=== PATIENT | male | born 1930 | race Caucasian/White ===

== ENCOUNTER 2016-12-27 18:49 | Emergency (ER) | payer MEDICARE, OTHER ==
[~2016-12-27] VITALS: Ht 167.6 cm; Wt 68.0 kg
[2016-12-27 18:49] VITALS: BP 151/56; PULSE 75; RESP 22; O2SAT 98
[~2016-12-27 18:49] MED LIST: ALPR0.254 PO; ASPI-973 PO; CLOB15CR3 TOP; CLOP75TA28 PO; FURO-129 PO; IBUP200C PO; LIP40 PO; LISI2.5T PO; METO25TA6 PO; NITR0.4T6 SL; OMEP20TA24 PO; POTA10TA14 PO; TAMS0.4C29 PO; TRAM50TA2 PO
--- NOTE | 2016-12-27 18:58 | ED.REPORT ---
HPI-General Illness Date of Service Dec 27, 2016 ED Provider: Onesimo Betancur DO An 86 year old male with a history of pacemaker, CAD, CABG, sleep apnea, hypertension, spinal stenosis, recent hip replacement, aortic valve replacement , and multiple other medical concerns is brought to the ED via EMS due to difficulty staying awake. The pt resides in [facility] and was noted by staff to be falling asleep during dinner today. The pt had a hip replacement one month ago and has been moved frequently as a result. In the ED, the pt states that he does not like being moved so frequently and that his only complaint is depression. He sleeps "because there is nothing else to do." Pt is a poor historian and history is limited as a result. Nursing Notes Stated Complaint: TROUBLE STAYING AWAKE Chief Complaint: General Complaint Nursing Notes Reviewed: Yes Allergies: Coded Allergies: hydrocodone (Verified Allergy, Mild, 12/27/16) NAUSEA codeine (Verified Allergy, Unknown, 12/27/16) Scheduled Alprazolam (Alprazolam) 0.25 Mg Tablet 0.25 MG PO BID Aspirin (Aspirin) 81 Mg Tablet 81 MG PO DAILY Atorvastatin (Lipitor) 40 Mg Tablet 40 MG PO HS Cholecalciferol (Vitamin D3) (Vitamin D3) 2,000 Unit Capsule 2,000 UNIT PO DAILY Duloxetine (Cymbalta) 30 Mg Capsule.dr 30 MG PO DAILY Furosemide (Lasix) 20 Mg Tablet 20 MG PO EVERY OTHER DAY Melatonin (Melatonin) 3 Mg Tablet 3 MG PO HS Multivitamin (Multivitamins) 1 Each Capsule 1 EACH PO DAILY Polyethylene Glycol 3350 (Polyethylene Glycol 3350) 17 Gm Powd.pack 17 GM PO DAILY Potassium Chloride ER (Klor-Con M10) 10 Meq Tablet 10 MEQ PO DAILYWM Scheduled PRN Acetaminophen (Acetaminophen) 325 Mg Tablet 650 MG PO BID PRN PRN For Fever Alprazolam (Alprazolam) 0.25 Mg Tablet 0.25 MG PO DAILY PRN PRN For Anxiety Bisacodyl (Dulcolax Rectal) 10 Mg Supp.rect 10 MG RC EVERY 3 DAYS PRN PRN CONSTIP Ibuprofen (Ibuprofen) 200 Mg Capsule 400 MG PO DAILYWM PRN PRN For Pain Magnesium Hydroxide (Milk of Magnesia) 400 Mg/5 Ml Oral.susp 30 ML PO X3 DAYS PRN PRN CONSTIP Nitroglycerin SL (Nitroglycerin SL) 0.4 Mg Tab.subl 0.4 MG SL PRN PRN PRN For Chest Pain Ondansetron (Ondansetron) 4 Mg Tablet 4 MG PO Q6HR PRN PRN For Nausea Sennosides (Senna) 8.6 Mg Tablet 8.6 MG PO TID PRN PRN For Constipation Tramadol (Tramadol) 50 Mg Tablet 50-100 MG PO HS PRN PRN For Pain oxyCODONE-Acetaminophen 5-325 mg (oxyCODONE-Acetaminophen 5-325 mg) 1 Each Tablet 1 TAB PO 1-2X DAY PRN PRN For Pain General Time Seen by MD: 18:57 Chief Complaint Other (Abnormal sleeping habits) Hx Obtained From: Patient, EMS Arrived By: Ambulance Sudden in Onset?: No Onset Occurred: 1 - 4 hours ago Recent Healthcare: No recent hospitalization, Recent doctor visit Similar Sx Previous: No Past Medical History Past Medical History Notes: PCP: Dr. Richardson Orthopedist: Dr. Wong at [facility]. Past Medical History Coronary artery disease Chronic left bundle-branch block Valvular heart disease - Severe aortic stenosis, severe mitral regurg (echo for 07/24/2015: EF 40-45%, worsening pulmonary hypertension, echogenic structure on posterior leaflet of mitral valve and severe mitral regurg, critically severe aortic stenosis which has been worsening) Obstructive sleep apnea Hypertension Hyperlipidemia Spinal stenosis with chronic back pain, neuropathy of right foot One kidney stone Oseoarthritis, severe in lower back, knee, and hip Peripheral vascular disease Holter study in 2006 suggestive brief SVT Past Surgical History Status post left percutaneous transfemoral TAPVR with an [employer] XT pericardial tissue heart valve placed at the [facility] 03/26/2015 Cardiac cath in 2005 with subsequent CABG x4 in 2005 - Cradiologist: Dr. Ivey (subcutaneous workups of expressed concern the patient has suffered a occlusion of the diagonal portion of his radial artery graft) Right common femoral artery open endarterectomy with patch angioplasty in 2008 Bladder CA with surgery including lymphadenectomy on the right side by Dr. Pulido L4-L5 back surgery 2009 Aortic valve replacement 2014 Reports: Pacemaker insertion Smoking History Former Smoker Social History Alcohol Use: "Social" Drug Use: Denies drug use Other Social History: , Local resident Ambulatory Status Cane Review of Systems frequently falling asleep per EMS Full Review of Systems Constitutional: Denies: Fever Respiratory: Denies: Non-productive cough, Shortness of breath Cardiovascular: Denies: Chest pain GI: Denies: Abdominal pain Musculoskeletal: Denies: Back pain, Neck pain Skin: Denies Rash Psychiatric: Reports: Depression Complete sys rev & neg: except as marked. Physical Exam Vital Signs Vital Signs Date Time Temp Pulse Resp B/P Pulse Ox O2 Delivery O2 Flow Rate FiO2 12/28/16 00:51 75 20 125/87 75 Room Air 12/27/16 22:20 80 24 148/72 98 Room Air 12/27/16 18:49 36.8 75 22 151/56 98 Room Air Initial VS: Reviewed General/Constitutional: Awake, Alert Head / Eyes: Atraumatic, Normocephalic, PERRL, EOMI ENT: Atraumatic, Airway patent, Mucous membranes moist, Tympanic membs NL no rhinorrhea Neck: Atraumatic, Supple, Full range of motion thyroid not enlarged Respiratory / Chest: Atraumatic, Breath sounds NL, Breath sounds = bilat, No respiratory distress two well-healed surgical scars from pacemaker placement Cardiovascular: Heart rate NL, Regular rhythm holosystolic injection murmur click at left sternal border Abdomen: Atraumatic, Soft, Non-tender, BS normoactive no organomegaly Back: Atraumatic, Full range of motion Upper Extremities Upper Extremity / MS: Atraumatic, Full range of motion Lower Extremity / Pelvis / MS: Atraumatic, Full range of motion 2+ pitting edema in bilateral lower extremities good distal pulses and cap refill Skin: Atraumatic, Color NL, No rash, Warm, Dry Neurologic: Oriented X3, Speech NL, No motor deficits, No sensory deficits Psychiatric: Affect NL, Mood NL Interpretation & Diagnostics Interpretation & Diagnostics: US DVT: CONCLUSION: No evidence of deep vein thrombosis of the lower extremities. Lab Results Interpretation Result Diagram: 12/27/16192412/27/161924 Test 12/27/16 19:25 12/27/16 21:13 12/27/16 23:12 White Blood Count 6.6th/mm3 (3.8-10.1) Red Blood Count 3.90mil/mm3 (4.40-5.80) Hemoglobin 11.1g/dL (13.8-17.2) Hematocrit 33.9% (41.0-50.0) Mean Corpuscular Volume 86.9fL (81-100) Mean Corpuscular Hemoglobin 28.5pg (27.0-35.0) Mean Corpuscular Hemoglobin Concent 32.7% (32.0-37.0) Red Cell Distribution Width 15.4% (12.3-15.4) Platelet Count 146bil/L (150-400) Neutrophils (%) (Auto) 56.4% (40-74) Lymphocytes (%) (Auto) 30.1% (14-46) Monocytes (%) (Auto) 10.4% (4-12) Eosinophils (%) (Auto) 2.0% (0-5) Basophils (%) (Auto) 0.8% (0-3) D-Dimer 0.9mg/L (<0.50) Sodium Level 138mEq/L (134-144) Potassium Level 3.9mEq/L (3.5-5.2) Chloride Level 101mEq/L (97-108) Carbon Dioxide Level 23mmol/L (18-29) Blood Urea Nitrogen 19mg/dL (8-27) Creatinine 1.00mg/dL (0.76-1.27) Estimat Glomerular Filtration Rate 75mL/min (>59) Glucose Level 124mg/dL (60-99) Calcium Level 9.3mg/dL (8.5-10.1) Magnesium Level 1.8mg/dL (1.6-2.6) Total Bilirubin 0.7mg/dL (0.0-1.2) Aspartate Amino Transf (AST/SGOT) 29U/L (0-50) Alanine Aminotransferase (ALT/SGPT) 22U/L (0-44) Alkaline Phosphatase 102U/L (25-160) Pro-B-Type Natriuretic Peptide 90470eu/mL (0-486) Total Protein 6.4g/dL (6.4-8.4) Albumin 3.6g/dL (3.4-5.0) Thyroid Stimulating Hormone (TSH) 0.528uIU/mL (0.450-4.500) Hold Baird Top Tube Received (Received) Urine Color Yellow (YELLOW) Urine Appearance Clear (CLEAR,HAZY) Urine pH 5.0 (5.0-8.0) Urine Specific [place] 1.011 (1.003-1.035) Urine Protein Negativemg/dL (NEG,TRACE) Urine Glucose (UA) Negativemg/dL (NEGATIVE) Urine Ketones Negativemg/dL (NEGATIVE) Urine Occult Blood Moderate (NEGATIVE) Urine Nitrite Negative (NEGATIVE) Urine Bilirubin Negative (NEGATIVE) Urine Urobilinogen Normalmg/dL (NORMAL) Urine Leukocyte Esterase Negative (NEGATIVE) Urine RBC 11-50/hpf (0-2) Urine WBC 0-5/hpf (0-5) Urine Epithelial Cells Occasional/hpf (NONE-MOD) Urine Crystals None seen (NONE SEEN) Urine Bacteria Few/hpf (NONE-FEW) Urine Hyaline Casts None/lpf (NONE) Urine Granular Casts None seen (NONE SEEN) Urine Waxy Casts None seen (NONE SEEN) Urine Red Blood Cell Casts None seen (NONE SEEN) Urine White Blood Cell Casts None seen (NONE SEEN) Urine Mucus Present (None Seen) Urine Trichomonas None seen (NONE SEEN) Urine Yeast None (NONE SEEN) Urinalysis Comment None Urine Culture Reflexed Not indicated Troponin T 0.011ug/L (0.0-0.011) Pulse Oximetry Interpretation Pulse Oximetry Interpretation: 98% on room air Pulse Oximetry: Pulse Ox normal ECG Interpretation ECG Interpretation: normal sinus rhythm with a rate of 72 LBBB anterior infarct, old probable left atrial enlargment Time: 19:33 Interpreted by: ED physician X-Ray Chest Interpretation Chest Xray Interpretation: IMPRESSION: 1. No definite acute cardiopulmonary disease. Dictated by: Johny Ferguson M.D. on 12/27/2016 at 21:28 Approved by: Johny Ferguson M.D. on 12/27/2016 at 21:29 Interpretation / Wet Read by: Interpret - Radiologist CT Head Interpretation IMPRESSION: 1. No acute intracranial abnormality. 2. Mild chronic white matter small vessel ischemic changes and cerebral volume loss. Dictated by: Johny Ferguson M.D. on 12/27/2016 at 20:06 Approved by: Johny Ferguson M.D. on 12/27/2016 at 20:09 Interpretation / Wet Read by: Interpret - Radiologist Re-Eval/Medical Decision Med Decision/Clinical Course 78-year-old male presents with no complaint. The staff at [facility] is concerned because he seems to be falling asleep a bit. He tells me sleeping because he is bored. He is also not happy about having his room switched several times. He denies headache, neck pain, chest pain or shortness of breath he does not have abdominal pain still living a can think of this different is he has a little leg swelling but otherwise he is doing well medically. Again he has no specific complaints. After thorough physical exam, review of systems an extensive workup I found that he most likely has urinary tract infection. He has some red cells and white cells and bacteria. As such we will culture his urine and placement short course of antibiotics. Serial troponins were never positive. His EKG did not look ischemic and overall he is not having any chest pain he did not wish to be in the hospital. I found no reason whatsoever to admit him. His family members came. I explained all this to them. They are pleased with his care and will take him back to [facility] I will place him on a course of antibiotics. Will also arrange for outpatient follow-up. Addendum: On December 28 at 6:15 PM I spoke with the staff at [facility]. Rojelio is doing much better. He is not very sleepy and he is back to his baseline. The will send him back if any problems. Source of Hx: Old records Time of Eval: 23:17 Patient Status: Condition improved Re-Evaluation/Progress Note: Pt rechecked, who is resting and accompanied by family. Diagnosis and the plan for discharge are discussed. The pt understands and agrees with the plan. All questions are addressed at this time. Counseled Regarding: Diagnosis, Lab results, Need for follow-up, When/why to return to ED Discharge & Departure Primary Impression: UTI (urinary tract infection) Urinary tract infection type: site unspecified Hematuria presence: with hematuria Qualified Code: N39.0 - Urinary tract infection, site not specified Disposition: Home Discharge Condition All VS Reviewed: Yes Condition: Stable Patient Instructions: Urinary Tract Infection in Men (ED) Additional Instructions: Your CT scan was reassuring and did not show any new findings. Your chest x-ray , blood chemistry, and heart enzymes were also normal. Your thyroid function is normal and you do not have a blood clot in your legs. You did have blood in your urine which could indicate a urine infection. Take Bactrim twice daily for five days and follow up with your primary care physician next week to review the results of your culture. Return to the emergency department if you develop any new or worsening symptoms. Referrals: Cassie Richardson MD (PCP) Oliviaibshauna Attestation Portions of this note were transcribed by Nayely Quezada. I, Dr. Betancur personally performed the history, physical exam and medical decision-making; I reviewed and confirmed the accuracy of the information in the transcribed note. Signed by: Mg Rudd, 12/27/2016 and 2307. copies to: Cassie Richardson MD, Todd P DO Dec 27, 2016 18:58 NAYELY QUEZADA Dec 27, 2016 19:09
[2016-12-27] MEDS ORDERED: OXYC1TAB24 PO (19:15)
[2016-12-27] MEDS ORDERED: SENN-133 PO (19:15)
[2016-12-27] MEDS ORDERED: MULT1CAP33 PO (19:15)
[2016-12-27] MEDS ORDERED: BISA10SU61 RC (19:15)
[2016-12-27] MEDS ORDERED: FURO-129 PO (19:15)
[2016-12-27] MEDS ORDERED: POLY17PO2 PO (19:15)
[2016-12-27] MEDS ORDERED: ACET325T51 PO (19:15)
[2016-12-27] MEDS ORDERED: ALPR0.254 PO (19:15)
[2016-12-27] MEDS ORDERED: CHOL200047 PO (19:15)
[2016-12-27] MEDS ORDERED: ONDA-53 PO (19:15)
[2016-12-27] MEDS ORDERED: DULO30CA PO (19:15)
[2016-12-27] MEDS ORDERED: MELA3TAB35 PO (19:15)
[2016-12-27] MEDS ORDERED: MAGN400O4 PO (19:15)
[2016-12-27 19:37] LABS: BASOPHILS % (AUTO) 0.8 % (0-3); MONOCYTES % (AUTO) 10.4 % (4-12); Mean Corpuscular Hemoglobin 28.5 pg (27.0-35.0); Mean Corpuscular Volume 86.9 fL (81-100); NEUTROPHILS % (AUTO) 56.4 % (40-74); Platelet Count 146 bil/L (150-400)
--- NOTE | 2016-12-27 20:11 | DRSVH ---
PROCEDURE: CT BRAIN WITHOUT CONTRAST ([id number]) INDICATIONS: altered mental status TECHNIQUE: Noncontrast 4.5 mm thick angled axial sections acquired from the foramen magnum to the vertex, with c oronal reformats. COMPARISON: [facility], CT, CT BRAIN WO CON, 06/30/2015, 10:33. FINDINGS: Image quality: Excellent. CSF spaces: Basal cisterns are patent. No extra-axial fluid collections. The ventricles are symmet andrade in size and shape. There is mild cere or mild andbral volume loss, with resultant ventricular an d sulcal prominence. Brain: No intracranial hemorrhage, mass, or mass effect. There are subcortical, periventricular and deep white matter hypodensities consistent with chronic small vessel ischemic changes. There is int racranial internal carotid artery atherosclerosis. Skull and face: Calvarium and visualized facial bones appear intact, without suspicious lesions. Sinuses: Visualized sinuses are clear. There is partial fluid opacification of the left mastoid air cells. IMPRESSION: 1. No acute intracranial abnormality. 2. Mild chronic white matter small vessel ischemic changes and cerebral volume loss. Dictated by: Johny Ferguson M.D. on 12/27/2016 at 20:06 Approved by: Johny Ferguson M.D. on 12/27/2016 at 20:09
[2016-12-27 20:14] LABS: TROPONIN T < 0.010 ug/L (0.0-0.011)
[2016-12-27 20:23] LABS: Magnesium 1.8 mg/dL (1.6-2.6)
--- NOTE | 2016-12-27 21:31 | DRSVH ---
PROCEDURE: X-RAY CHEST ONE VIEW, PORTABLE ([id number]) INDICATIONS: weakness TECHNIQUE: One view of the chest was acquired. COMPARISON: [facility], CR, XR CHEST 1VW (PORTABLE), 06[facility]30[facility]2015, 10:37[facility]/2015, 12:29. FINDINGS: Surgical changes and devices: Left chest wall dual-lead pacemaker appears stable in position. Postsu rgical changes are again noted in the mediastinum. Lungs and pleura: No pleural effusions or pneumothorax. No acute consolidation. There are calcifie d pleural plaques are demonstrated in the lung apices. There is a dense nodule in the right lung bas e which appears unchanged. Mediastinum: Mediastinal contours appear unchanged. Heart size is normal. Bones and chest wall: No suspicious bony lesions. Overlying soft tissues appear unremarkable. IMPRESSION: 1. No definite acute cardiopulmonary disease. Dictated by: Johny Ferguson M.D. on 12/27/2016 at 21:28 Approved by: Johny Ferguson M.D. on 12/27/2016 at 21:29
[2016-12-27 21:34] LABS: APPEARANCE,URINE CLEAR (CLEAR,HAZY); COLOR,URINE YELLOW (YELLOW); OCCULT BLOOD,URINE MODERATE (NEGATIVE); UROBILINOGEN,URINE NORMAL (NORMAL)
[2016-12-27 22:20] VITALS: BP 148/72; PULSE 80; RESP 24; O2SAT 98
[2016-12-27] MEDS ORDERED: Trimethoprim-Sulfa 160 mg-800 mg Tablet PO ONE (23:05)
[2016-12-28 00:51] VITALS: BP 125/87; PULSE 75; RESP 20; O2SAT 75
--- NOTE | 2016-12-28 08:22 | DRSVH ---
PROCEDURE: US VENOUS LEG DUPLEX BILATERAL INDICATIONS: new leg swelling,recent post op,High ddimer TECHNIQUE: Real-time imaging, as well as color and pulse Doppler interrogation, were performed of the deep veins of both legs from the inguinal ligament to the popliteal fossa. COMPARISON: None. FINDINGS: The deep veins are normally compressible, and free of intraluminal thrombus. Color and pu lse Doppler demonstrate normal phasic intravascular flow. There is normal augmentation response to d istal compression maneuver. IMPRESSION: No evidence of right lower extremity DVT. Dictated by: Dania Woods M.D. on 12/28/2016 at 8:20 Approved by: Dania Woods M.D. on 12/28/2016 at 8:21
== END 2016-12-28 00:55 | disposition home or self-care (01) ==
LOC: SED 18:49
DX: N39.0 Urinary tract infection, site not specified (principal); I25.10 Atherosclerotic heart disease of native coronary artery without angina pectoris; G47.33 Obstructive sleep apnea (adult) (pediatric); I10 Essential (primary) hypertension; E78.5 Hyperlipidemia, unspecified; Z95.0 Presence of cardiac pacemaker; Z95.1 Presence of aortocoronary bypass graft; Z87.39 Personal history of other diseases of the musculoskeletal system and connective tissue; Z96.649 Presence of unspecified artificial hip joint; Z95.2 Presence of prosthetic heart valve; Z87.891 Personal history of nicotine dependence; Z79.82 Long term (current) use of aspirin; Z88.5 Allergy status to narcotic agent

== ENCOUNTER 2017-01-05 13:50 | Inpatient (IN) | payer MEDICARE, OTHER ==
[2017-01-05] VITALS (19 sets, daily range): BP systolic 111–149; BP diastolic 66–105; PULSE 87–98; RESP 16–23; O2SAT 95–99
[~2017-01-05] VITALS: Ht 167.6 cm; Wt 64.7 kg
[~2017-01-05 13:50] MED LIST changes: +ACET325T51 PO; +BISA10SU61 RC; +CHOL200047 PO; -CLOB15CR3 TOP; -CLOP75TA28 PO; +DULO30CA PO; -LISI2.5T PO; +MAGN400O4 PO; +MELA3TAB35 PO; -METO25TA6 PO; +MULT1CAP33 PO; -OMEP20TA24 PO; +ONDA-53 PO; +OXYC1TAB24 PO; +POLY17PO2 PO; +SENN-133 PO; -TAMS0.4C29 PO
--- NOTE | 2017-01-05 14:08 | ED.REPORT ---
HPI-Syncope Date of Service Jan 05, 2017 ED Provider: Bouchra Riley MD The patient is an 86 year old male with history of coronary artery disease s/p CABG, valvular heart disease, atrial fibrillation, s/p pacemaker placement, s/p aortic valve replacement and mitral clip procedure, obstructive sleep apnea, hypertension, hyperlipidemia, spinal stenosis with chronic back pain, and peripheral vascular disease, who was brought to the emergency department by EMS after he had a syncopal episode. The patient states he was eating lunch at [facility] where he resides, he just slid off of the chair and fell to the ground. He remembers falling but feels like he did lose consciousness at some point. He denies any injuries from the fall. He denies headache, chest pain, palpitations or shortness of breath. He has had 4-5 falls over the last few days. He had a similar episode yesterday that was witnessed by a nurse. He did not fall but was "completely out of it." He was seen in the hospital 1 week ago for syncope as well. Nursing Notes Stated Complaint: SYNCOPE Nursing Notes Reviewed: Yes Allergies: Coded Allergies: hydrocodone (Verified Allergy, Mild, 12/27/16) NAUSEA codeine (Verified Allergy, Unknown, 12/27/16) Scheduled Alprazolam (Alprazolam) 0.25 Mg Tablet 0.25 MG PO BID Aspirin (Aspirin) 81 Mg Tablet 81 MG PO DAILY Atorvastatin (Lipitor) 40 Mg Tablet 40 MG PO HS Cholecalciferol (Vitamin D3) (Vitamin D3) 2,000 Unit Capsule 2,000 UNIT PO DAILY Duloxetine (Cymbalta) 30 Mg Capsule.dr 30 MG PO DAILY Furosemide (Lasix) 20 Mg Tablet 20 MG PO EVERY OTHER DAY Melatonin (Melatonin) 3 Mg Tablet 3 MG PO HS Multivitamin (Multivitamins) 1 Each Capsule 1 EACH PO DAILY Polyethylene Glycol 3350 (Polyethylene Glycol 3350) 17 Gm Powd.pack 17 GM PO DAILY Potassium Chloride ER (Klor-Con M10) 10 Meq Tablet 10 MEQ PO DAILYWM Scheduled PRN Acetaminophen (Acetaminophen) 325 Mg Tablet 650 MG PO BID PRN PRN For Fever Alprazolam (Alprazolam) 0.25 Mg Tablet 0.25 MG PO DAILY PRN PRN For Anxiety Bisacodyl (Dulcolax Rectal) 10 Mg Supp.rect 10 MG RC EVERY 3 DAYS PRN PRN CONSTIP Ibuprofen (Ibuprofen) 200 Mg Capsule 400 MG PO DAILYWM PRN PRN For Pain Magnesium Hydroxide (Milk of Magnesia) 400 Mg/5 Ml Oral.susp 30 ML PO X3 DAYS PRN PRN CONSTIP Nitroglycerin SL (Nitroglycerin SL) 0.4 Mg Tab.subl 0.4 MG SL PRN PRN PRN For Chest Pain Ondansetron (Ondansetron) 4 Mg Tablet 4 MG PO Q6HR PRN PRN For Nausea Sennosides (Senna) 8.6 Mg Tablet 8.6 MG PO TID PRN PRN For Constipation Tramadol (Tramadol) 50 Mg Tablet 50-100 MG PO HS PRN PRN For Pain oxyCODONE-Acetaminophen 5-325 mg (oxyCODONE-Acetaminophen 5-325 mg) 1 Each Tablet 1 TAB PO 1-2X DAY PRN PRN For Pain General Time Seen by Provider: 14:08 Chief Complaint Lost consciousness Syncope Description: Single episode Hx Obtained From: Patient, Daughter, EMS Arrived By: Ambulance Onset Occurred: Just prior to arrival Symptom Duration: 1 - 15 minutes Progression Since Onset: Resolved Severity: Current: No pain currently Severity: Maximum: No pain Recent Healthcare: No recent doctor visit, No recent hospitalization Similar Sx Previous: No Past Medical History Past Medical History Notes: PCP: Dr. Richardson Orthopedist: Dr. Wong at [facility]. The patient would like his body donated to the when he passed. Past Medical History Coronary artery disease s/p status post three-vessel CABG in 2005. Congestive heart failure due to systolic/diastolic dysfunction. Atrial fibrillation Hypertension Aortic stenosis, severe status post TAVR March 2015 complicated by complete heart block requiring [employer] DDDR pacemaker Adenocarcinoma of the lung Severe mitral regurgitation, status post mitral clip procedure in March 2015. Peripheral artery disease with a history of a right common femoral endarterectomy with patch angioplasty Obstructive sleep apnea, using CPAP Hypertension, Hyperlipidemia Osteoarthritis Anxiety. Benign prostatic hypertrophy Questionable history of hepatitis B, chronic Bladder cyst and hematuria with apparent obstruction s/p indwelling catheter, followed by Dr. Pulido. Chronic low back pain with spinal stenosis, neuropathy of right foot and oseoarthritis Nicotine dependence in remission since 1980. Bladder cancer Past Surgical History Status post left percutaneous transfemoral TAPVR with an [employer] XT pericardial tissue heart valve placed at the [facility] 03/26/2015 Right common femoral artery open endarterectomy with patch angioplasty in 2008 Bladder CA with surgery including lymphadenectomy on the right side by Dr. Pulido L4-L5 back surgery 2008 Aortic valve replacement 2015 CABG x4 in 2005 Pacemaker Mitral clip procedure Right common femoral endarterectomy with patch angioplasty TURP History of cataract surgery Diverticulectomy Reports: Pacemaker insertion Family History Noncontributory Smoking History Former Smoker Social History Lives at [facility] in [place] Alcohol Use: "Social" Drug Use: Denies drug use Other Social History: Good social support, , Local resident Ambulatory Status Cane Review of Systems Respiratory: Denies: Shortness of breath Cardiovascular: Denies: Chest pain, Palpitations Neurologic: Reports: Syncope, Denies: Headache Complete sys rev & neg: except as marked. Physical Exam Initial Vital Signs Vital Signs (First) Date Time Temp Pulse Resp B/P Pulse Ox O2 Delivery O2 Flow Rate FiO2 01/05/17 14:08 36.8 95 16 125/80 99 Room Air Initial VS: Reviewed Head / Eyes: Atraumatic, Normocephalic, PERRL ENT: Mucous membranes moist, Conjunctiva normal, No scleral icterus Neck: Supple, Non-tender, Full range of motion Abdomen / GI: Soft, Non-tender, No guarding, No rebound, No distention Lymphatic: No lymphadenopathy Upper Extremities: Vascular intact, Neuro intact, No tenderness Skin: Warm, Dry, No cyanosis Psychiatric: Mood/affect normal, Behavior normal, Normal thought content General/Constitutional: Awake, Alert, Well appearing Respiratory / Chest: Atraumatic, Breath sounds NL, Breath sounds = bilat, No respiratory distress, No rales, No rhonchi, No wheezing Cardiovascular: Heart rate NL, Regular rhythm, No gallop, No rubs, Cap refill not delayed, Peripheral circulation NL Heart Sounds / Murmur: Positive: Diastolic murmur present. (III/), Systolic murmur present.. (IV/) Lower Ext Edema: Positive: Bilateral 2+ Lower Extremity / Pelvis / MS: Neurologic intact, Vascular intact Neurologic: Oriented X3, Speech NL, No motor deficits, No sensory deficits, Cerebellar NL, Memory NL Interpretation & Diagnostics Lab Results Interpretation Result Diagram: 01/05/17 1433 Test 01/05/17 14:33 White Blood Count 7.4th/mm3 (3.8-10.1) Red Blood Count 3.98mil/mm3 (4.40-5.80) Hemoglobin 11.3g/dL (13.8-17.2) Hematocrit 34.5% (41.0-50.0) Mean Corpuscular Volume 86.7fL (81-100) Mean Corpuscular Hemoglobin 28.4pg (27.0-35.0) Mean Corpuscular Hemoglobin Concent 32.8% (32.0-37.0) Red Cell Distribution Width 16.4% (12.3-15.4) Platelet Count 127bil/L (150-400) Neutrophils (%) (Auto) 53.1% (40-74) Lymphocytes (%) (Auto) 31.0% (14-46) Monocytes (%) (Auto) 10.5% (4-12) Eosinophils (%) (Auto) 3.9% (0-5) Basophils (%) (Auto) 1.2% (0-3) Re-Eval/Medical Decision Source of Hx: Old records, EMS, Family Counseled Regarding: Diagnosis, Lab results Discharge & Departure Shift Change Sign-Out Patient Care Transferred: Yes Discussed Complaint(s): Yes Laboratory Evaluation: Ordered, not yet done Imaging Studies: Ordered, not yet done Response to Therapy: Discussed Pleasant 86-year-old gentleman with recurrent syncope. His significant valvular disease. He describes decreasing awareness then slumping to the floor in episode one week ago 24 hours ago and again today. No seizure-like activity and no loss of bowel or bladder. Cardiac related syncope in setting valvular heart disease. Pacemaker will be interrogated. Care is turned over to Dr. Presley. Impression: Primary Impression: Syncope Syncope type: unspecified Qualified Code: R55 - Syncope and collapse Discharge Condition All VS Reviewed: Yes Condition: Stable Referrals: Allie Haq Care Transferred to: Dr. Presley Care Transferred at: 15:01 Mg Attestation Portions of this note were transcribed by Sujey Morrow. I, Dr. Riley personally performed the history, physical exam and medical decision-making; I reviewed and confirmed the accuracy of the information in the transcribed note. Signed by: Mg Varela, 01/05/2017 at 1500. copies to: Allie Haq Shawna L MD Jan 05, 2017 14:08 Sujey Morrow Jan 05, 2017 14:16
[2017-01-05 14:36] LABS: BASOPHILS % (AUTO) 1.2 % (0-3); EOSINOPHILS % (AUTO) 3.9 % (0-5); MONOCYTES % (AUTO) 10.5 % (4-12); Mean Corpuscular Hemoglobin 28.4 pg (27.0-35.0); Mean Corpuscular Volume 86.7 fL (81-100); NEUTROPHILS % (AUTO) 53.1 % (40-74); Platelet Count 127 bil/L (150-400)
--- NOTE | 2017-01-05 14:58 | DRSVH ---
PROCEDURE: X-RAY CHEST ONE VIEW, PORTABLE ([id number]) INDICATIONS: syncope TECHNIQUE: One view of the chest was acquired. COMPARISON: None. FINDINGS: Surgical changes and devices: Median sternotomy, CABG, aVR, permanent pacemaker. Small metallic devic e overlying the left heart, unchanged.. Lungs and pleura: No pleural effusions or pneumothorax. Lungs are clear. Calcified granuloma right lower lobe. Elevation right hemidiaphragm. Mediastinum: Mediastinal contours appear normal. Heart size is normal. Bones and chest wall: No suspicious bony lesions. Overlying soft tissues appear unremarkable. IMPRESSION: No acute cardiopulmonary abnormality. Dictated by: Tomas Hewitt M.D. on 01/05/2017 at 14:56 Approved by: Tomas Hewitt M.D. on 01/05/2017 at 14:57
[2017-01-05 15:03] LABS: Magnesium 2.1 mg/dL (1.6-2.6)
[2017-01-05 15:05] LABS: TROPONIN T 0.575 ug/L (0.0-0.011)
[2017-01-05] MEDS ORDERED: ACET325T51 PO (16:21)
[2017-01-05] MEDS ORDERED: MAG-106 PO (16:22)
[2017-01-05] MEDS ORDERED: DOCU-41 PO (16:23)
[2017-01-05] MEDS ORDERED: NA P133E23 RC (16:23)
[2017-01-05] MEDS ORDERED: BISM-95 PO (16:24)
[2017-01-05] MEDS ORDERED: MAGN400O4 PO (16:27)
[2017-01-05] MEDS ORDERED: Polyethylene Glycol (PEG) 17 Gm Powder PO PRN (18:20)
[2017-01-05] MEDS ORDERED: Alum-Mag Hydrox-Simeth 30 mL Suspension PO PRN ×2 (18:20→18:25)
[2017-01-05] MEDS ORDERED: Ondansetron 2 mg/mL 2 mL Inj IVPUSH PRN (18:20)
[2017-01-05] MEDS ORDERED: Heparin 5,000 Unit/mL Inj SUBQ SCH (18:20)
[2017-01-05] MEDS ORDERED: oxyCODONE-Acetamin 5-325 mg Tablet PO PRN (18:25)
[2017-01-05] MEDS ORDERED: Bismuth Subsalicylate 240 mL Suspension PO PRN (18:25)
[2017-01-05] MEDS ORDERED: Sodium Biphos-Phos 133 mL Enema RECTAL PRN (18:25)
[2017-01-05] MEDS ORDERED: Magnesium Hydroxide 10 mL Oral Concentration PO PRN (18:45)
[2017-01-05] MEDS ORDERED: ALPRAZolam 0.25 mg Tablet PO PRN (18:50)
--- NOTE | 2017-01-05 18:55 | DRSVH ---
PROCEDURE: CT ANGIO CHEST PULMONARY EMBOLISM ([id number]) INDICATIONS: syncope, dimer TECHNIQUE: After the administration of intravenous contrast, 2 mm thick sections acquired from the pulmonary api stephanie to the posterior costophrenic angles. 3-dimensional maximum intensity projection (MIP) coronal a nd sagittal reformats were then acquired through the thorax. For radiation dose reduction, the follo wing was used: automated exposure control, adjustment of mA and/or kV according to patient size. COMPARISON: [facility], CT, CT CHEST WO CON, 12/20/2015, 8:31. [facility], C R, XR CHEST 1VW (PORTABLE), 01/05/2017, 14:35. FINDINGS: Image quality: Excellent. Pulmonary arteries: Pulmonary arteries are normal in size, and demonstrate no intraluminal filling d efects to suggest central pulmonary embolism. Lungs and pleura: Curvilinear density in the anterior right upper lobe is considered to be unchanged allowing for differences in technique from the previous CT. The airspace disease/ground glass appeara nce in the anterolateral aspect of the lower left upper lobe is considered unchanged in series 6 imag e 28 of the current study compared to series 3 image [address] of the thorax without cont rast. There is no pneumothorax. The vasculature appears prominent there are small bilateral pleural effusions right minimally greater than the left. There are interstitial increased markings centrally and peripherally. Central and per ipheral airways are patent. Mediastinum: Heart size is enlarged, without pericardial effusion. No mediastinal or hilar adenopat hy. There is an aortic valve present. There is a density probably a mitral valve present. Pacemaker w ires are present. Thoracic aorta is normal in caliber and enhancement. Esophagus is normal in calibe r, without hiatal hernia. Bones and chest wall: No suspicious bony lesions. Ribs and thoracic spine appear intact throughout. . No axillary or supraclavicular adenopathy. Abdomen: Visualized upper abdominal solid organs appear normal in the early arterial phase of enhanc ement. IMPRESSION: Changes present that would be most consistent with early mild congestive failure change. No evidence for pulmonary embolus is seen. Persistent and probably unchanged over the past year curvilinear scarring versus less likely mass in the right upper lobe anteriorly. Previous aortic and probable mitral valve replacements. Previous sternotomy. Pacemaker from left uppe r chest. Dictated by: Gabriele Monterroso M.D. on 01/05/2017 at 18:38 Approved by: Gabriele Monterroso M.D. on 01/05/2017 at 18:54
--- NOTE | 2017-01-05 20:10 | HP ---
[address] [address] HISTORY AND PHYSICAL PATIENT: ASIM GRIFFITH : 1930 MR#: [id number] ADMIT: 01/05/2017 JOB ID: [id number] PRIMARY CARE PROVIDER: Dr. Richardson. WATER MAINTENANCE SUPERVISOR: Dr. Ivey. Patient was admitted from ER, inpatient status Blue Team. CHIEF COMPLAINT: Fainted. HISTORY OF PRESENT ILLNESS: This is an 86-year-old male who had a syncopal episode today. He said he has had five of these in the last two weeks and today was the worst. Apparently, he was having lunch. Got about [facility] through his lunch and then, all of a sudden, felt like he was going to faint. He kind of fell to the right sweeping his hand across the table, knocking all the dishes to the floor, crashed down to the floor. He thinks he was out for 10 seconds, revived, and he was evaluated and brought to the ED. He had four other such episodes, none as severe, but like once he stood up to walk, he kind of felt he was going to faint for a second and then it got better. The patient has known coronary artery disease and presents with a troponin of 0.519 to the ER and also has significant valvular heart disease. Our emergency room physician spoke with Dr. Rivero who said he would see the patient and asked the patient be admitted. At this time, we are going to add a D-dimer for consideration of thromboembolic disease. At this time, patient is asymptomatic. He has denied any chest pain or other symptoms. He is hungry and would like to eat. He has no headache. REVIEW OF SYSTEMS: Complete review of systems obtained, all pertinent positives in HPI as above, rest review of systems negative. PAST MEDICAL HISTORY: 1. Coronary artery disease, bypass surgery in 2005. 2. Chronic systolic congestive heart failure. Last echo June 04, 2015. EF 40% to 45%. 3. Severe mitral regurgitation. 4. Aortic stenosis status post TAVR at [facility] in 2014. This was complicated by complete heart block requiring a [employer] DDDR pacemaker. 5. Remote history of AFib. 6. Hypertension. 7. Adenocarcinoma of the lung treated with radiation oncology at [facility]. 8. Severe mitral regurgitation, status post mitral clip procedure, March 2015. 9. Peripheral artery disease with a right common femoral endarterectomy with patch angioplasty. 10. Obstructive sleep apnea, using CPAP. 11. Hypertension. 12. Anxiety. 13. History of TURP. 14. BPH. 15. 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 16. History of cataract surgery. 17. Diverticulectomy. 18. Bladder cyst with hematuria, chronic. MEDICATIONS: 1. Lipitor 40 daily. 2. Sublingual nitro p.r.n. 3. Aspirin 81 daily. 4. Lasix 20 daily. 5. KCl 10 daily. 6. Cymbalta 30 q.a.m. 7. Oxycodone 5/325 p.r.n. pain. 8. Vitamin D3, 2000 units. 9. Multivitamins daily. 10. Melatonin 3 mg at bedtime. 11. Alprazolam 0.25 b.i.d. and p.r.n. ALLERGIES: HYDROCODONE and CODONE; however, we do note that patient takes oxycodone on a regular basis and does well with that. FAMILY HISTORY: Parents and all brothers have coronary artery disease. SOCIAL HISTORY: Lives at [facility]. No alcohol use. Was a former smoker, but has not smoked since 1980. PHYSICAL EXAMINATION: VITAL SIGNS: Afebrile. Blood pressure 148/95, O2 sats 96% on room air. Pulse is 94. SKIN: Warm and dry. GENERAL: Patient is alert, cooperative, having no symptoms or complaints at this time. A little bit forgetful. EYES: PERRLA. EOMs intact. MOUTH: Shows adequate hydration. NECK: No overt JVD. LUNGS: Coarse bilaterally without wheezing or rales. CARDIAC EXAM: Regular with complex cardiac murmurs. I think there are two systolic murmurs and probably a diastolic murmur also. ABDOMEN: Soft, nonacute, benign. EXTREMITIES: Showed 0.5+ edema bilaterally. NEURO: Cranial nerves 2-12 are intact. No gross motor or sensory defects noted. DIAGNOSES: 1. Acute syncopal episodes present on admission, active. Etiology is unclear. Will rule out a pulmonary embolism with a CT as his D-dimer is elevated. Otherwise, consider other cardiac sources. Please note patient had his pacemaker interrogated in the ER and the donor center technician told Dr. Andry Presley there was nothing to explain his syncope. However, worsening valvular heart disease, myocardial infarction, arrhythmias are also possibilities and the patient will be monitored on telemetry. 2. Possible non ST elevation myocardial infarction, present on admission, active. Patient's troponin is 0.575. The ER doctor has already talked to Dr. Rivero who is aware and agrees to see the patient. At this time, we are going to continue patient's Lipitor, aspirin, add make him n.p.o. after midnight. Will formally request a cardiac consult and not initiate a beta vito due to the syncopal episodes as noted above. Patient is asymptomatic at this time and doing well. 3. Known aortic stenosis and mitral regurgitation, present on admission, active. We will repeat an echo and make further decisions depending on those results. 4. Chronic congestive heart failure present on admission, stable. At this time, will continue with patient's Lasix and potassium. I am not sure why the patient is not on an RAI inhibitor. We can check into that or recommend his primary care provider consider it. 5. Proximal atrial fibrillation by history. Currently, in sinus rhythm. 6. Chronic hypertension, present on admission. Currently stable. Will continue with patient's Lasix and monitor his blood pressure. 7. Chronic anxiety/depression, present on admission. Stable. Continue Cymbalta and scheduled and p.r.n. Ativan. 8. Chronic pain, present on admission, stable. Continue oxycodone p.r.n. CODE STATUS: Confirmed with patient DNR/DNI status.
[2017-01-05 20:16] LABS: TROPONIN T 0.572 ug/L (0.0-0.011)
[2017-01-05] MEDS: ALPRAZolam 0.25 mg Tablet PO SCH (21:51)
[2017-01-06] VITALS (10 sets, daily range): BP systolic 123–147; BP diastolic 64–82; PULSE 64–90; RESP 18; O2SAT 96–99
--- NOTE | 2017-01-06 00:05 | NUR ---
Admission to Room 3009 Patient arrived to room 3009 at 1845 via [facility], accompanied by ED staff and step-daughter. Patient denies chest pain. VSS. Patient has intermittent bouts of confusion. Conversations do not make sense but then comes to and understands conversation. Patient ate two TV dinners. PM medications administered. Call light within reach. Care continues.
[2017-01-06] MEDS: Heparin 5,000 Unit/mL Inj SUBQ SCH ×3 (06:32→20:45)
[2017-01-06 06:36] LABS: MONOCYTES % (AUTO) 9.5 % (4-12); Mean Corpuscular Hemoglobin 28.3 pg (27.0-35.0); Mean Corpuscular Volume 86.9 fL (81-100); NEUTROPHILS % (AUTO) 60.8 % (40-74); Platelet Count 133 bil/L (150-400)
[2017-01-06] MEDS: Polyethylene Glycol (PEG) 17 Gm Powder PO SCH (08:30)
[2017-01-06] MEDS: DULoxetine 30 mg DR Capsule PO SCH (09:11)
[2017-01-06] MEDS: ALPRAZolam 0.25 mg Tablet PO SCH ×2 (09:11→20:45)
--- NOTE | 2017-01-06 10:36 | NUR ---
[facility] obtained this AM as follows: Lying 36.8, 65 HR, 18 RR, 132/73, 99% on RA. Sittin/64, HR 87 Standin/74, 90 HR. Pt denied any dizziness with change in position nor any CP/discomfort.
--- NOTE | 2017-01-06 11:46 | NUR ---
CPAP Spoke with Corrina berry this AM who agreed to grab pt's CPAP and bring it up to him this evening.
--- NOTE | 2017-01-06 13:30 | PCM.PNMED ---
Subjective Date of Service Jan 06, 2017 Subjective Did well overnight. No chest pain no further syncopal episodes. Tele was unrevealing. Echo pending. Case discussed with Dr. Rivero early this AM, will see later today. Exam Vital Signs Vital Sign - Last Date Time Temp Pulse Resp B/P Pulse Ox O2 Delivery O2 Flow Rate FiO2 01/06/17 10:29 90 147/74 01/06/17 10:25 36.8 18 99 Room Air Intake and Output 01/05/17 01/05/17 01/06/17 Cumulative From/Thru 15:00 23:00 07:00 01/05/17 14:08 - 01/06/17 06:28 Intake Total 300 ml 300 ml Output Total 700 ml 700 ml Balance -400 ml -400 ml Intake Oral 300 ml 300 ml Output Urine Total 700 ml 700 ml # Voids 1 1 # Bowel Movements 0 0 Exam Eyes; alfred, eom intact ENMT; hydrated mucus membranes, no lesions CV; no JVD, S1S2 present complex crdiac murmurs, both systolic and diastolic Resp; coarse otherwise clear GI; soft and benign Skin; dry without rash Neuro 2-12 intact, some dementia but conversant and cooperative Lab and Diagnostics Result Diagram: 01/06/17 0520 01/06/17 0520 Assessment & Plan 1. Acute syncopal episodes present on admission, active. -Etiology is unclear, consider cardiac source -CTA negative for acute PE -pacemaker interrogated in the ER and the artificial breeding technician told Dr. Andry Presley there was nothing to explain his syncope. -will order orthostatic measures -review echo when back -cardiology consultation 2. Possible non ST elevation myocardial infarction, present on admission, active. -troponin remains relatively flat but elevated with normal CPK -continue lipitor, asa 81, lasix, -cardiology consultation pending 3. Known aortic stenosis and mitral regurgitation, present on admission, active -repeat echo pending review with cards when back 4. Chronic congestive heart failure present on admission, stable. -continue with patient's Lasix and potassium. -not sure why the patient is not on an RAI inhibitor. 5. Proximal atrial fibrillation by history. -Currently, in sinus rhythm, monitor 6. Chronic hypertension, present on admission. Currently stable. -stable 7. Chronic anxiety/depression, present on admission. Stable. -Continue Cymbalta and scheduled and p.r.n. Ativan. 8. Chronic pain, present on admission, stable. -Continue oxycodone p.r.n. Disposition: Lives at [facility], pcp is Dr. Richardson, Bulking Machine Operator is Dr. Ivey CODE STATUS: Confirmed with patient DNR/DNI status. VTE Mechanical Devices: Anti-Embolic stockings Lucia Mosley MD Jan 06, 2017 13:30
[2017-01-06] MEDS ORDERED: Furosemide 10 mg/mL 4 mL Inj IVPUSH ONE (14:10)
--- NOTE | 2017-01-06 14:22 | PCM.CHPCAR ---
Consult Subjective Date of service Jan 06, 2017 Date of admit Jan 05, 2017 at 17:52 Provider Requesting Consult Requesting Provider: Lucia Mosely MD Primary Care Physician Primary Care Physician: Allie Haq Chief Complaint lightheadedness, fatigue History of Present Illness 86 yo M h/o CAD s/p 4V CABG 2005, TAVR for severe in 2014 and mitraclip for severe MR in 2014 admitted with lightheadedness. Of note, patient is a poor historian. Patient states that he has been living in a rehabilitation facility due to his left hip surgery a few months ago. Patient has had lightheadedness and weakness for the past few months but this has been worse over the past couple of days. He has fallen couple of times over the past couple of days and he was brought to our emergency room for further care. He denies dyspnea, chest pain, heart racing sensations. Patient is frail and is relatively inactive and cannot go also out of his room without assistance. Denies fevers, chills, nausea, or vomiting. Review of Systems Review of Systems per HPI and otherwise unremarkable PMH Past Medical History # Systolic heart faliure with EF 40-45% on Echo 2014 that appears to be 30-35% on today's study visually. 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 # HTN # HLD # Lung cancer s/p radiation oncology treatment at Scheduled Acetaminophen (Acetaminophen) 325 Mg Tablet 650 MG PO BID (Reported) Alprazolam (Alprazolam) 0.25 Mg Tablet 0.25 MG PO BID (Reported) Aspirin (Aspirin) 81 Mg Tablet 81 MG PO QAM (Reported) Atorvastatin (Lipitor) 40 Mg Tablet 40 MG PO HS (Reported) Cholecalciferol (Vitamin D3) (Vitamin D3) 2,000 Unit Capsule 2,000 UNIT PO QAM ( Reported) Duloxetine (Cymbalta) 30 Mg Capsule.dr 30 MG PO QAM (Reported) Furosemide (Lasix) 20 Mg Tablet 20 MG PO Q2DAY (Reported) Melatonin (Melatonin) 3 Mg Tablet 3 MG PO HS (Reported) Multivitamin (Multivitamins) 1 Each Capsule 1 EACH PO QAM (Reported) Polyethylene Glycol 3350 (Polyethylene Glycol 3350) 17 Gm Powd.pack 17 GM PO QAM (Reported) HOLD FOR LOOSE STOOLS Potassium Chloride ER (Klor-Con M10) 10 Meq Tablet 10 MEQ PO DAILYWM (Reported) Sennosides (Senna) 8.6 Mg Tablet 8.6 MG PO BID (Reported) Scheduled PRN Acetaminophen (Acetaminophen) 325 Mg Tablet 650 MG PO Q4H PRN PRN For Fever ( Reported) Alprazolam (Alprazolam) 0.25 Mg Tablet 0.25 MG PO DAILY PRN PRN For Anxiety ( Reported) Bisacodyl (Dulcolax Rectal) 10 Mg Supp.rect 10 MG RC EVERY 3 DAYS PRN PRN CONSTIP (Reported) Bismuth Subsalicylate (Digestive Relief) 262 Mg/15 Ml Oral.susp 30 ML PO BID PRN PRN For Diarrhea or Loose Stool (Reported) Docusate Sodium (Colace) 100 Mg Capsule 100 MG PO BID PRN PRN For Constipation ( Reported) Ibuprofen (Ibuprofen) 200 Mg Capsule 400 MG PO DAILYWM PRN PRN For Pain ( Reported) Mag Hydrox/Al Hydrox/Simeth (Adv Antacid-Antigas Liquid) 400 Mg-400 Mg-40 Mg/5 Ml Oral.susp 30 ML PO TID PRN PRN For Dyspepsia or Heartburn (Reported) Magnesium Hydroxide (Milk of Magnesia) 400 Mg/5 Ml Oral.susp 30 ML PO Q3DAYS PRN PRN For Constipation (Reported) Na Phos,M-B/Na Phos,Di-Ba (Fleet Enema) 133 Ml Enema 133 ML RC Q3DAYS PRN PRN For Constipation (Reported) Nitroglycerin SL (Nitroglycerin SL) 0.4 Mg Tab.subl 0.4 MG SL PRN PRN PRN For Chest Pain (Reported) Ondansetron (Ondansetron) 4 Mg Tablet 4 MG PO Q6HR PRN PRN For Nausea (Reported ) oxyCODONE-Acetaminophen 5-325 mg (oxyCODONE-Acetaminophen 5-325 mg) 1 Each Tablet 1 TAB PO BID PRN PRN For Pain (Reported) Discontinued Medications Magnesium Hydroxide (Milk of Magnesia) 400 Mg/5 Ml Oral.susp 30 ML PO X3 DAYS PRN PRN CONSTIP (Reported) Tramadol (Tramadol) 50 Mg Tablet 50-100 MG PO HS PRN PRN For Pain (Reported) Current Inpatient Medications Current Medications Heparin Sodium (Porcine) 5,000 unit Q8 SUBQ Last administered on 01/05/17 21:52 ; Admin Dose 5,000 UNIT; Start 01/05/17 at 18:20; Stop 01/05/17 at 23:40; Status DC Al Hydrox/Mg Hydrox/Simethicone 30 ml Q6H PRN PO; Start 01/05/17 at 18:20; Status UNV Ondansetron HCl 4 to 8 mg Q4H PRN IVPUSH; Start 01/05/17 at 18:20 Senna 17.2 mg BID PRN PO; Start 01/05/17 at 18:20 Polyethylene Glycol 17 gm DAILY PRN PO; Start 01/05/17 at 18:20 Acetaminophen 650 mg Q4H PRN PO; Start 01/05/17 at 18:20 Acetaminophen 650 mg BID PO Last administered on 01/06/17 09:11; Admin Dose 650 MG; Start 01/05/17 at 20:30 Aspirin 81 mg DAILY PO Last administered on 01/06/17 09:11; Admin Dose 81 MG; Start 01/06/17 at 08:30 Atorvastatin Calcium 40 mg HS PO Last administered on 01/05/17 21:50; Admin Dose 40 MG; Start 01/05/17 at 21:00 Bisacodyl 10 mg DAILY PRN RECTAL; Start 01/05/17 at 18:25 Bismuth Subsalicylate 30 ml BID PRN PO; Start 01/05/17 at 18:25 Docusate Sodium 100 mg BID PRN PO; Start 01/05/17 at 18:25 Duloxetine HCl 30 mg DAILY PO Last administered on 01/06/17 09:11; Admin Dose 30 MG; Start 01/06/17 at 08:30 Furosemide 20 mg Q2DAY@0830 PO Last administered on 01/06/17 09:11; Admin Dose 20 MG; Start 01/06/17 at 08:30 Al Hydrox/Mg Hydrox/Simethicone 30 ml TID PRN PO; Start 01/05/17 at 18:25 Magnesium Hydroxide 10 ml DAILY PRN PO; Start 01/05/17 at 18:45 Sodium Biphosphate/ Sodium Phosphate 133 ml DAILY PRN RECTAL; Start 01/05/17 at 18:25 Nitroglycerin 0.4 mg PRN PRN SL; Start 01/05/17 at 18:25 Oxycodone/ Acetaminophen 1 tab BID PRN PO; Start 01/05/17 at 18:25 Polyethylene Glycol 17 gm DAILY PO; Start 01/06/17 at 08:30 Potassium Chloride 10 meq DAILYWM PO Last administered on 01/06/17 09:11; Admin Dose 10 MEQ; Start 01/06/17 at 08:00 Senna 8.6 mg BID PO Last administered on 01/06/17 09:10; Admin Dose 8.6 MG; Start 01/05/17 at 20:30 Alprazolam 0.25 mg BID PO Last administered on 01/06/17 09:11; Admin Dose 0.25 MG; Start 01/05/17 at 18:44 Alprazolam 0.25 mg DAILY PRN PO; Start 01/05/17 at 18:50 Cholecalciferol 2,000 unit DAILY PO Last administered on 01/06/17 09:11; Admin Dose 2,000 UNIT; Start 01/06/17 at 08:30 Melatonin 3 mg HS PO Last administered on 01/05/17 21:48; Admin Dose 3 MG; Start 01/05/17 at 21:00 Multivitamins/ Minerals Therapeutic 1 tablet DAILY PO Last administered on 09:11; Admin Dose 1 TABLET; Start 01/06/17 at 08:30 Ondansetron HCl 4 mg Q6H PRN PO; Start 01/05/17 at 18:55 Heparin Sodium (Porcine) 5,000 unit Q8H SUBQ Last administered on 01/06/17 06:32 ; Admin Dose 5,000 UNIT; Start 01/06/17 at 06:00 Allergies: Coded Allergies: hydrocodone (Verified Allergy, Mild, 01/05/17) NAUSEA codeine (Verified Allergy, Unknown, 01/05/17) Family History Family History Son at age 43 from unclear causes Social History Hx Alcohol Use: NoHx Substance Use: NoHx Tobacco Use: No Smoking Status: Former Smoker (quit 1980) Exam Vital Signs Vital Sign - Last Date Time Temp Pulse Resp B/P Pulse Ox O2 Delivery O2 Flow Rate FiO2 01/06/17 10:29 90 147/74 01/06/17 10:25 36.8 18 99 Room Air Intake and Output 01/05/17 01/05/17 01/06/17 Cumulative From/Thru 15:00 23:00 07:00 01/05/17 14:08 - 01/06/17 06:28 Intake Total 300 ml 300 ml Output Total 700 ml 700 ml Balance -400 ml -400 ml Intake Oral 300 ml 300 ml Output Urine Total 700 ml 700 ml # Voids 1 1 # Bowel Movements 0 0 General appearance: No apparent distress, frail, elderly, pleasant, cooperative HEET: Normocephalic atraumatic, no scleral icterus, tongue midline, mucous membranes moist Neck: supple, no carotid bruits Cardiovascular: RRR, distant S1 and S2, 3/6 systolic murmur heard best of the apex radiating to the axilla, JVP 11cm H20, 1+ LE b/l Respiratory: Fair aeration, coarse b/l Abdomen: Soft, nontender, nondistended, + bowel sounds Neuro: Alert, no facial droop, tongue midline, no gross focal deficits, tangential historian Psych: appropriate affect Skin: no rashes on face, neck, and lower extremities Lab and Diagnostics Labs Troponin 0.5 -> 0.67->0.722 Result Diagram: 01/06/17 0520 01/06/17 0520 X-Rays, CTs and MRIs CT chest 01/05/2017: Changes present that would be most consistent with early mild congestive failure change. No evidence for pulmonary embolus is seen. Persistent and probably unchanged over the past year curvilinear scarring versus less likely mass in the right upper lobe anteriorly. Previous aortic and probable mitral valve replacements. Previous sternotomy. Pacemaker from left upper chest. Assessment & Plan Assessment 86 yo M with very complex medical history including CAD s/p 4V CABG 2005, TAVR for severe and mitraclip for severe MR (both procedures in 2014) admitted with lightheadedness: # Lightheadedness/weakness: suspected etiology is frailty, advanced age, and complex medical illnesses along with recent hip surgery causing deconditioning. Patient educated about his condition. Will work with him on HF management and encouraged him to continue rehab. # Systolic heart faliure with EF 40-45% on Echo 2014 that appears to be 30-35% on today's study visually. Etiology of HF is ischemic cardiomyopathy. Based on the radiographic findings, he has hypervolemia. Plan: - Give furosemide 20mg IV or 40mg IV today and assess response to redose accordingly tomorrow. Goal to be -1L/day over the next couple of days until euvolemia - Hold off beta-blockers and RAI-I for now as patient not on these medications as outpatient. Can consider them prior to discharge if BP allows or consider them as outpatient. # CAD s/p 4V CABG 2005: known CAD. Troponin is elevated but suspect this is from HF as above. No angina based on story. Patient is a poor candidate for cath given his current frail conditoin. Plan: - Continue aspirin 81mg daily - Continue atorvastatin 40mg qhs - Okay to stop heparin gtt after troponins start trending down. # TAVR for severe and mitraclip for severe MR in 03/2015. TAVR is working well but his mitraclip has been a failure due to continued significant mitral regurgitation. Further management of valvular disease as outpatient, which involved monitoring for now. 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 # HTN: well controlled. Continue to monitor. # HLD: statin as above. # Lung cancer s/p radiation oncology treatment at . Thank you for the interesting consultation. If patient continues to not improve with diuresis, he would be a great candidate for palliative care consult. VTE Mechanical Devices: Anti-Embolic stockings Chris Rivero MD Jan 06, 2017 14:22
--- NOTE | 2017-01-06 15:03 | NUR ---
Case Management: IMM explained. Patient signed form. Hard copy in chart. Copy given to patient. CPerryRNCCM.
--- NOTE | 2017-01-06 15:17 | NUR ---
Social Work-initial assessment: Data:See initial assessment. Pt is an 86 y/o male who was admitted on 01/05/17 for syncope and positive troponin per H&P. Pt's insurance is [employer] out of [facility] and PCP is Allie Haq MD. EMR Reviewed. Pt's readmission score is not available. DENISE met with pt at bedside to discuss discharge planning, SW role explained. Pt is alert and oriented x3. Reported having some memory issues. Pt resides at [facility] with no steps to enter where pt remains independent with basic ADLs. Pt uses a 4ww at baseline and does not drive. Pt could not recall his history with HH or SNF. Pt reported he has completed DPOA/ advanced directive and SW requested the hospital be provided with a copy. Pt has no wax ball knock out worker care or VA benefits that he is aware of. Pt is agreeable to returning to [facility] at discharge with daughter to provide transport in POV. DENISE contacted [facility] and they requested they be contacted to assess the pt when he is closer to discharge. DENISE faxed updated chart notes to [facility]. DENISE attempted to reach daughter Corrina by phone [phone] to check in and left voicemail. Pt stated his family will provide transport back to [facility] at discharge. SW provided phone number and plan on white board in room. SW will continue to follow. Assessment:Pt who resides at [facility]. Plan:Pt to likely discharge back to [facility] via POV. DENISE will continue to follow. DENISE will contact [facility] to assess when pt is 1-2 days out from discharge. DENISE will continue to follow. HORTENSIA Coleman Addendum: 01/06/17 at 1544 by MICHAEL AGUSTIN Amended: Links added.
--- NOTE | 2017-01-06 17:27 | NUR ---
spiritual care; pt request introduced self and pt rec [place]. will plan to follow as needed.
--- NOTE | 2017-01-06 18:22 | NUR ---
Activity/labs Pt impulsive with activity, frequently self transferring and not steady with ambulation. Brittaney alarm in place to alert staff of pt getting OOB. He continues to deny any pain/discomfort in chest or otherwise. Troponin levels continue to rise, on unit this AM and aware of results. Bed in lowest, locked position with call light in reach and Cassia alarm in place.
[2017-01-07] VITALS (7 sets, daily range): BP systolic 103–140; BP diastolic 57–75; PULSE 76–89; RESP 18–20; O2SAT 96–99
[2017-01-07] MEDS: Heparin 5,000 Unit/mL Inj SUBQ SCH ×3 (05:22→22:07)
[2017-01-07 08:21] LABS: TROPONIN T 0.889 ug/L (0.0-0.011)
[2017-01-07] MEDS: ALPRAZolam 0.25 mg Tablet PO SCH ×2 (08:34→20:17)
[2017-01-07] MEDS: Polyethylene Glycol (PEG) 17 Gm Powder PO SCH (08:34)
[2017-01-07] MEDS: DULoxetine 30 mg DR Capsule PO SCH (08:37)
--- NOTE | 2017-01-07 09:06 | DRSVH ---
[facility] [address] [place] [address] Echocardiogram Report Name: ASIM GRIFFITH Sarmad e: 01/06/2017 Height: 66 in Hospital Exam Location: [facility] Weight: 153 lb Gender: Male BSA: 1.8 m2 : 1930 Age: 86 yrs BP: 136/82 mmHg Reason For Study: SYNCOPAL EPISODE Ordering Physician: HOSPITALIST [facility] Performed By: Kvng Hamm Referring Physician: BRIA Haq Interpretation Summary Left ventricular ejection fraction is estimated to be 30 +/- 5%. The left ventricle is moderate-severely dilated. Anterior wall is severely hypokinetic, apical hypokinesis, septal akinesis. Right ventricular systolic function is borderline reduced. There is severe biatrial enlargement. There is severe mitral regurgitation. 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 The prosthetic aortic valve appears to open well. There is moderate to severe tricuspid regurgitation. The right ventricular systolic pressure is estimated at 65 mmHg assuming a right atrial pressure of 8 mm Hg. Compared to prior echo report on 2014, changes are noted. Procedure: A two-dimensional transthoracic echocardiogram with color flow and Doppler was performed. The study quality was technically adequate. Comparison is made with the echocardiogram of 06/04/15. The suprasternal notch views were difficult to obtain and are suboptimal in quality. The patient has a paced rhythm. Left Ventricle: There is normal left ventricular wall thickness. The left ventricle is moderate-severely dilated. Left ventricular ejection fraction is estimated to be 30 +/- 5%. Anterior wall is severely hypokinetic, apical hypokinesis, septal akinesis. Right Ventricle: The right ventricle is normal size. There is a pacemaker lead in the right ventricle. Right ventricular systolic function is borderline reduced. Atria: There is severe biatrial enlargement. The interatrial septum is intact with no evidence for an atrial septal defect. Mitral Valve: There is severe mitral annular calcification. The mitral valve leaflets are moderately calcified. The mitral valve appears to have been repaired with a mitral valve clip, but the patient was unable to confirm having surgery to his mitral valve. There is severe mitral regurgitation. Flow reversal noted in pulmonary veins consistent with significant mitral regurgitation. Aortic Valve: There is a bioprosthetic aortic valve. The prosthetic aortic valve appears to open well. 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 There is trace aortic regurgitation. Tricuspid Valve: The tricuspid valve leaflets are thin and pliable. There is moderate to severe tricuspid regurgitation. The right ventricular systolic pressure is estimated at 65 mmHg assuming a right atrial pressure of 8 mm Hg. Pulmonic Valve: The pulmonic valve is normal in structure and function. There is trace pulmonic regurgitation. Great Vessels: The aortic root is normal size. The dimensions of the ascending aorta are normal. The pulmonary artery is normal size. The IVC is of normal diameter and collapses less than 50% with a sniff. This suggests a right atrial pressure of 8 mm Hg. Pericardium/ Pleura There is no pericardial effusion. There is a small left -sided pleural effusion. MMode/2D Measurements & Calculations LVIDd: 7.1 cm LA dimension: 4.7 cm RA long axis: 5.7 cm LVOT diam LVIDs: 6.0 cm FS: 16.2 % LA A2 area: 27.7 cm RA area: 31.1 cm AoV Opening EPSS: 3.0 cm LA A4 area: 29.9 cm RA vol: 144.3 ml IVSd: 0.75 cm LA length (vol): 6.2 cm RA : 80.8 ml/m2 Ao root diam LVPWd: 0.87 cm LA vol: 113.4 ml LA vol index asc Aorta Diam: 2.8 cm IVC diam: 1.7 cm EDV(MOD-sp2) LV gorman. diameter/BSA LV sys. diameter/BSA RVD1 (basal) : 158.8 ml (cm/m^2): 4.0 (cm/m^2): 3.4 : 4.5 cm RVD2 (mid) : 3.2 cm Doppler Measurements & Calculations Ao V2 max MV E max yonatan MV E/A: 1.3 TR max yonatan : 205.8 cm/sec : 148.3 cm/sec Med Peak E' Yonatan : 378.5 cm/sec Ao max PG MV A max yonatan TR max PG : 16.9 mmHg : 113.1 cm/sec E/E' med: 31.7 : 57.3 mmHg Ao mean PG Lat Peak E' Yonatan PA V2 max MVA(VTI): 1.6 cm2 : 68.6 cm/sec LVOT Max Yonatan E/E' lat: 26.4 PA mean PG : 89.0 cm/sec E/e' average : 0.97 mmHg PA Accel Time REINA(I,D): 1.5 cm MV A dur : 0.04 sec sev ratio : 0.12 sec MV V2 mean Ao V2 mean LV V1 max PG MR PISA radius : 88.5 cm/sec : 137.0 cm/sec MV mean PG Ao V2 VTI: 38.0 cm LV V1 VTI REINA(V,D): 1.5 cm2 : 16.2 cm MV V2 VTI: 33.9 cm MV dec time : 0.18 sec PA V2 mean REINA indexed to BSA : 46.3 cm/sec (cm^2/m^2): 0.82 PA pr(Accel) : 56.5 mmHg Electronically signed by: Yon Kelly on Reading Physician:01/06/2017 03:06 PM
--- NOTE | 2017-01-07 13:01 | NUR ---
ST changes Tele notified RN of ST changes. EKG done this AM. RN presented provider with 3 recent EKGs. Pt asymptomatic. Sitting up having lunch and on the phone. Will continue to monitor.
--- NOTE | 2017-01-07 13:29 | PCM.PNMED ---
Subjective Date of Service Jan 07, 2017 Subjective Looks pretty good today, sitting up giving himself a vigerous sponge bath. Discussed case with Dr. Rivero. Patient feels better, no chest pain breathing getting better. Exam Vital Signs Vital Sign - Last Date Time Temp Pulse Resp B/P Pulse Ox O2 Delivery O2 Flow Rate FiO2 01/07/17 09:55 36.4 87 18 134/70 99 Room Air Intake and Output 01/06/17 01/06/17 01/07/17 Cumulative From/Thru 15:00 23:00 07:00 01/05/17 14:08 - 01/07/17 06:13 Intake Total 900 ml 200 ml 1400 ml Output Total 1675 ml 650 ml 3025 ml Balance -775 ml -450 ml -1625 ml Intake Oral 900 ml 200 ml 1400 ml Output Urine Total 1675 ml 650 ml 3025 ml # Voids 2 3 # Bowel Movements 2 3 5 Exam Eyes; alfred, eom intact ENMT; hydrated mucus membranes, no lesions CV; no JVD, S1S2 present complex crdiac murmurs, both systolic and diastolic, 1+ edema Resp; coarse, otherwise clear GI; soft and benign Skin; dry without rash Neuro 2-12 intact, some dementia but conversant and cooperative Lab and Diagnostics Result Diagram: 01/06/17 0520 01/07/17 0614 Assessment & Plan 1. Acute syncopal episodes present on admission, active. -Etiology is unclear, consider cardiac source -CTA negative for acute PE -pacemaker interrogated in the ER and the clock repair technician told Dr. Andry Presley there was nothing to explain his syncope. -will order orthostatic measures -review echo when back 2. Possible non ST elevation myocardial infarction, present on admission, active. -probable secondary o acute CHF -continue lipitor, asa 81, lasix, 3. Known aortic stenosis and mitral regurgitation, present on admission, active -sever MR, sever TR, small bioprosthetic aortic leak -Cardilogy indicates that no further operative option are open to patient -medical management -consider palliative care 4. Acute on Chronic congestive heart failure secondary to systolic dysfunction, present on admission, stable. -continue with patient's Lasix and potassium. -dose IV lasix daily to try to diurese (cards wants a liter a day), 40 IV lasix today -for now no tyler inhibitor or b-vito, consider at d/c if bp permits 5. Proximal atrial fibrillation by history. -Currently, in sinus rhythm, monitor 6. Chronic hypertension, present on admission. Currently stable. -stable 7. Chronic anxiety/depression, present on admission. Stable. -Continue Cymbalta and scheduled and p.r.n. Ativan. 8. Chronic pain, present on admission, stable. -Continue oxycodone p.r.n. Disposition: Lives at [facility], pcp is Dr. Richardson, Shrub Grower is Dr. Ivey CODE STATUS: Confirmed with patient DNR/DNI status. VTE Mechanical Devices: Anti-Embolic stockings, Venous Foot Pump Lucia Mosley MD Jan 07, 2017 13:29
[2017-01-07] MEDS ORDERED: Furosemide 10 mg/mL 4 mL Inj IVPUSH ONE (13:30)
--- NOTE | 2017-01-07 14:20 | NUR ---
Social Work: Readiness for d/c Data: Pt is on day 2 of hospitalization. EMR reviewed. Pt discussed in rounds. MD states pt likely to d/c in 1-2 days. [employer] spoke with [facility] who states an assessment is not needed prior to pt's discharging back to them. [employer] will update on day of d/c. [employer] will continue to follow. Assessment: Pt from memory care. Plan: Pt will d/c back to [facility]. [employer] will update on day of d/c. [employer] will continue to follow. HORTENSIA Bradford
[2017-01-08] VITALS (9 sets, daily range): BP systolic 103–142; BP diastolic 57–82; PULSE 67–99; RESP 12–20; O2SAT 95–97
--- NOTE | 2017-01-08 03:45 | NUR ---
Uneventful night Patient was calm and cooperative through the night. Used call light appropriately. Denied pain. Vital signs stable. [place] alarm in place for safety.
[2017-01-08] MEDS: Heparin 5,000 Unit/mL Inj SUBQ SCH ×3 (05:45→22:00)
[2017-01-08] MEDS: Polyethylene Glycol (PEG) 17 Gm Powder PO SCH (08:09)
[2017-01-08] MEDS: DULoxetine 30 mg DR Capsule PO SCH (08:09)
[2017-01-08] MEDS: ALPRAZolam 0.25 mg Tablet PO SCH ×2 (08:10→20:03)
--- NOTE | 2017-01-08 10:06 | PCM.PNMED ---
Subjective Date of Service Jan 08, 2017 Subjective Continue to do very well considering his cardiac issues, diuresing well. Up in chair eating breakfast. Daughter in Law present, updated. Exam Vital Signs Vital Sign - Last Date Time Temp Pulse Resp B/P Pulse Ox O2 Delivery O2 Flow Rate FiO2 01/08/17 06:08 36.5 81 20 112/66 97 Room Air Intake and Output 01/07/17 01/07/17 01/08/17 Cumulative From/Thru 15:00 23:00 07:00 01/05/17 14:08 - 01/07/17 18:39 Intake Total 1762 ml 3162 ml Output Total 2225 ml 5250 ml Balance -463 ml -2088 ml Intake Oral 1762 ml 3162 ml Output Urine Total 2225 ml 5250 ml # Voids 2 5 # Bowel Movements 2 7 Exam Eyes; alfred, eom intact ENMT; hydrated mucus membranes, no lesions CV; no JVD, S1S2 present complex crdiac murmurs, both systolic and diastolic, 1+ edema, little less then yesterday Resp; coarse, otherwise clear GI; soft and benign Skin; dry without rash Neuro 2-12 intact, some dementia but conversant and cooperative Lab and Diagnostics Result Diagram: 01/06/17 0520 01/07/17 1349 Assessment & Plan 1. Acute syncopal episodes present on admission, active. -Etiology is unclear, probalble multifactorial in the setting of severe valvular cardiac disease -CTA negative for acute PE -pacemaker interrogated in the ER and the emissions testing and repair technician told Dr. Andry Presley there was nothing to explain his syncope. -will order orthostatic measures -review echo when back 2. Possible non ST elevation myocardial infarction, present on admission, improving. -probable secondary o acute CHF -continue lipitor, asa 81, lasix, 3. Known aortic stenosis and mitral regurgitation, present on admission, active -sever MR, sever TR, small bioprosthetic aortic leak -Cardilogy indicates that no further operative option are open to patient -medical management -consider palliative care 4. Acute on Chronic congestive heart failure secondary to systolic dysfunction, present on admission, stable. -continue with patient's Lasix and potassium. -dose IV lasix daily to try to diurese (cards wants a liter a day), 40 IV lasix today again -for now no tyler inhibitor or b-vito, consider at d/c if bp permits 5. Proximal atrial fibrillation by history. -Currently, in sinus rhythm, monitor 6. Chronic hypertension, present on admission. Currently stable. -stable 7. Chronic anxiety/depression, present on admission. Stable. -Continue Cymbalta and scheduled and p.r.n. Ativan. 8. Chronic pain, present on admission, stable. -Continue oxycodone p.r.n. Disposition: Lives at [facility], pcp is Dr. Richardson, Helicopter Engineer is Dr. Ivey CODE STATUS: Confirmed with patient DNR/DNI status. VTE Mechanical Devices: Anti-Embolic stockings, Venous Foot Pump Lucia Mosley MD Jan 08, 2017 10:06
[2017-01-08] MEDS ORDERED: Furosemide 10 mg/mL 4 mL Inj IVPUSH ONE (10:10)
--- NOTE | 2017-01-08 19:00 | NUR ---
Hopelessness Pt. talks about feeling frustrated "that I'm reduced to this... playing bingo and hanging out with old decrepits. I can't even get toothpaste without help." He states he lost his house and cars and now has no place to go except [facility], "I'm useless. It makes me upset to think all the money I worked so hard for, for my kids, I have to spend on being sick."
[2017-01-09] VITALS (7 sets, daily range): BP systolic 107–134; BP diastolic 66–74; PULSE 76–98; RESP 16–18; O2SAT 96–97
--- NOTE | 2017-01-09 04:43 | NUR ---
Ambulation/NOC shift note Patient walked two laps in hallway with walker and SBA after dinner. Steady on feet with walker, denied shortness of breath. Patient later reported that this is the best he has slept here. Has denied pain. Using call light appropriately. Vital signs stable. [place] bed alarm on for safety, and intentional rounding in place.
[2017-01-09] MEDS: Heparin 5,000 Unit/mL Inj SUBQ SCH (06:07)
[2017-01-09] MEDS: ALPRAZolam 0.25 mg Tablet PO SCH (10:47)
[2017-01-09] MEDS: DULoxetine 30 mg DR Capsule PO SCH (10:50)
--- NOTE | 2017-01-09 11:43 | PCM.DIMED ---
Discharge Instructions Date of Service Jan 09, 2017 Dates of Hospitalization Jan 05, 2017 at 17:52 Discharge Diagnosis Discharge Diagnosis 1. Acute syncopal episodes present on admission, resolved 2. Possible non ST elevation myocardial infarction, present on admission, resolved 3. Known aortic stenosis and mitral regurgitation, present on admission, chronic 4. Acute on Chronic congestive heart failure secondary to systolic dysfunction, present on admission, stable. 5. Proximal atrial fibrillation by history. 6. Chronic hypertension, present on admission. Currently stable. 7. Chronic anxiety/depression, present on admission. Stable. 8. Chronic pain, present on admission, stable. Diet Low fat, Low Sodium, Heart Healthy Activity Limited until seen by PCP Patient Instructions Follow-up plan Follow up with your primary care provider in a week or 2. Follow-up with PCP in: 1 week Lucia Mosley MD Jan 09, 2017 11:43
[2017-01-09] MEDS ORDERED: FURO-128 PO (11:55)
--- NOTE | 2017-01-09 12:04 | PCM.DC.MED ---
Discharge Summary Date of Service Jan 09, 2017 Dates of Hospitalization Date of Hospital Admission Jan 05, 2017 at 17:52 Date of Discharge: Jan 09, 2017 Providers: Admitting Physician: Lucia Mosley MD Primary Care Physician: Allie Haq Attending Physician: Lucia Mosley MD Diagnosis at Time of Discharge Diagnosis at Time of Discharge 1. Acute syncopal episodes present on admission, resolved 2. Possible non ST elevation myocardial infarction, present on admission, resolved 3. Known aortic stenosis and mitral regurgitation, present on admission, chronic 4. Acute on Chronic congestive heart failure secondary to systolic dysfunction, present on admission, stable. 5. Proximal atrial fibrillation by history. 6. Chronic hypertension, present on admission. Currently stable. 7. Chronic anxiety/depression, present on admission. Stable. 8. Chronic pain, present on admission, stable. Consultations Consult Subjective Date of service Jan 06, 2017 Chief Complaint lightheadedness, fatigue History of Present Illness 86 yo M h/o CAD s/p 4V CABG 2005, TAVR for severe in 2014 and mitraclip for severe MR in 2014 admitted with lightheadedness. Of note, patient is a poor historian. Patient states that he has been living in a rehabilitation facility due to his left hip surgery a few months ago. Patient has had lightheadedness and weakness for the past few months but this has been worse over the past couple of days. He has fallen couple of times over the past couple of days and he was brought to our emergency room for further care. He denies dyspnea, chest pain, heart racing sensations. Patient is frail and is relatively inactive and cannot go also out of his room without assistance. Denies fevers, chills, nausea, or vomiting. Review of Systems Review of Systems per HPI and otherwise unremarkable PMH Past Medical History # Systolic heart faliure with EF 40-45% on Echo 2014 that appears to be 30-35% on today's study visually. 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 # HTN # HLD # Lung cancer s/p radiation oncology treatment at Scheduled Acetaminophen (Acetaminophen) 325 Mg Tablet 650 MG PO BID (Reported) Alprazolam (Alprazolam) 0.25 Mg Tablet 0.25 MG PO BID (Reported) Aspirin (Aspirin) 81 Mg Tablet 81 MG PO QAM (Reported) Atorvastatin (Lipitor) 40 Mg Tablet 40 MG PO HS (Reported) Cholecalciferol (Vitamin D3) (Vitamin D3) 2,000 Unit Capsule 2,000 UNIT PO QAM ( Reported) Duloxetine (Cymbalta) 30 Mg Capsule.dr 30 MG PO QAM (Reported) Furosemide (Lasix) 20 Mg Tablet 20 MG PO Q2DAY (Reported) Melatonin (Melatonin) 3 Mg Tablet 3 MG PO HS (Reported) Multivitamin (Multivitamins) 1 Each Capsule 1 EACH PO QAM (Reported) Polyethylene Glycol 3350 (Polyethylene Glycol 3350) 17 Gm Powd.pack 17 GM PO QAM (Reported) HOLD FOR LOOSE STOOLS Potassium Chloride ER (Klor-Con M10) 10 Meq Tablet 10 MEQ PO DAILYWM (Reported) Sennosides (Senna) 8.6 Mg Tablet 8.6 MG PO BID (Reported) Scheduled PRN Acetaminophen (Acetaminophen) 325 Mg Tablet 650 MG PO Q4H PRN PRN For Fever ( Reported) Alprazolam (Alprazolam) 0.25 Mg Tablet 0.25 MG PO DAILY PRN PRN For Anxiety ( Reported) Bisacodyl (Dulcolax Rectal) 10 Mg Supp.rect 10 MG RC EVERY 3 DAYS PRN PRN CONSTIP (Reported) Bismuth Subsalicylate (Digestive Relief) 262 Mg/15 Ml Oral.susp 30 ML PO BID PRN PRN For Diarrhea or Loose Stool (Reported) Docusate Sodium (Colace) 100 Mg Capsule 100 MG PO BID PRN PRN For Constipation ( Reported) Ibuprofen (Ibuprofen) 200 Mg Capsule 400 MG PO DAILYWM PRN PRN For Pain ( Reported) Mag Hydrox/Al Hydrox/Simeth (Adv Antacid-Antigas Liquid) 400 Mg-400 Mg-40 Mg/5 Ml Oral.susp 30 ML PO TID PRN PRN For Dyspepsia or Heartburn (Reported) Magnesium Hydroxide (Milk of Magnesia) 400 Mg/5 Ml Oral.susp 30 ML PO Q3DAYS PRN PRN For Constipation (Reported) Na Phos,M-B/Na Phos,Di-Ba (Fleet Enema) 133 Ml Enema 133 ML RC Q3DAYS PRN PRN For Constipation (Reported) Nitroglycerin SL (Nitroglycerin SL) 0.4 Mg Tab.subl 0.4 MG SL PRN PRN PRN For Chest Pain (Reported) Ondansetron (Ondansetron) 4 Mg Tablet 4 MG PO Q6HR PRN PRN For Nausea (Reported ) oxyCODONE-Acetaminophen 5-325 mg (oxyCODONE-Acetaminophen 5-325 mg) 1 Each Tablet 1 TAB PO BID PRN PRN For Pain (Reported) Discontinued Medications Magnesium Hydroxide (Milk of Magnesia) 400 Mg/5 Ml Oral.susp 30 ML PO X3 DAYS PRN PRN CONSTIP (Reported) Tramadol (Tramadol) 50 Mg Tablet 50-100 MG PO HS PRN PRN For Pain (Reported) Current Inpatient Medications Current Medications Heparin Sodium (Porcine) 5,000 unit Q8 SUBQ Last administered on 01/05/17 21:52 ; Admin Dose 5,000 UNIT; Start 01/05/17 at 18:20; Stop 01/05/17 at 23:40; Status DC Al Hydrox/Mg Hydrox/Simethicone 30 ml Q6H PRN PO; Start 01/05/17 at 18:20; Status UNV Ondansetron HCl 4 to 8 mg Q4H PRN IVPUSH; Start 01/05/17 at 18:20 Senna 17.2 mg BID PRN PO; Start 01/05/17 at 18:20 Polyethylene Glycol 17 gm DAILY PRN PO; Start 01/05/17 at 18:20 Acetaminophen 650 mg Q4H PRN PO; Start 01/05/17 at 18:20 Acetaminophen 650 mg BID PO Last administered on 01/06/17 09:11; Admin Dose 650 MG; Start 01/05/17 at 20:30 Aspirin 81 mg DAILY PO Last administered on 01/06/17 09:11; Admin Dose 81 MG; Start 01/06/17 at 08:30 Atorvastatin Calcium 40 mg HS PO Last administered on 01/05/17 21:50; Admin Dose 40 MG; Start 01/05/17 at 21:00 Bisacodyl 10 mg DAILY PRN RECTAL; Start 01/05/17 at 18:25 Bismuth Subsalicylate 30 ml BID PRN PO; Start 01/05/17 at 18:25 Docusate Sodium 100 mg BID PRN PO; Start 01/05/17 at 18:25 Duloxetine HCl 30 mg DAILY PO Last administered on 01/06/17 09:11; Admin Dose 30 MG; Start 01/06/17 at 08:30 Furosemide 20 mg Q2DAY@0830 PO Last administered on 01/06/17 09:11; Admin Dose 20 MG; Start 01/06/17 at 08:30 Al Hydrox/Mg Hydrox/Simethicone 30 ml TID PRN PO; Start 01/05/17 at 18:25 Magnesium Hydroxide 10 ml DAILY PRN PO; Start 01/05/17 at 18:45 Sodium Biphosphate/ Sodium Phosphate 133 ml DAILY PRN RECTAL; Start 01/05/17 at 18:25 Nitroglycerin 0.4 mg PRN PRN SL; Start 01/05/17 at 18:25 Oxycodone/ Acetaminophen 1 tab BID PRN PO; Start 01/05/17 at 18:25 Polyethylene Glycol 17 gm DAILY PO; Start 01/06/17 at 08:30 Potassium Chloride 10 meq DAILYWM PO Last administered on 01/06/17 09:11; Admin Dose 10 MEQ; Start 01/06/17 at 08:00 Senna 8.6 mg BID PO Last administered on 01/06/17 09:10; Admin Dose 8.6 MG; Start 01/05/17 at 20:30 Alprazolam 0.25 mg BID PO Last administered on 01/06/17 09:11; Admin Dose 0.25 MG; Start 01/05/17 at 18:44 Alprazolam 0.25 mg DAILY PRN PO; Start 01/05/17 at 18:50 Cholecalciferol 2,000 unit DAILY PO Last administered on 01/06/17 09:11; Admin Dose 2,000 UNIT; Start 01/06/17 at 08:30 Melatonin 3 mg HS PO Last administered on 01/05/17 21:48; Admin Dose 3 MG; Start 01/05/17 at 21:00 Multivitamins/ Minerals Therapeutic 1 tablet DAILY PO Last administered on 09:11; Admin Dose 1 TABLET; Start 01/06/17 at 08:30 Ondansetron HCl 4 mg Q6H PRN PO; Start 01/05/17 at 18:55 Heparin Sodium (Porcine) 5,000 unit Q8H SUBQ Last administered on 01/06/17t 06:32 ; Admin Dose 5,000 UNIT; Start 01/06/17 at 06:00 Allergies: Coded Allergies: hydrocodone (Verified Allergy, Mild, 01/05/17) NAUSEA codeine (Verified Allergy, Unknown, 01/05/17) Family History Family History Son at age 43 from unclear causes Social History Hx Alcohol Use: NoHx Substance Use: NoHx Tobacco Use: No Smoking Status: Former Smoker (quit 1980) Exam Vital Signs Vital Sign - Last Date Time Temp Pulse Resp B/P Pulse Ox O2 Delivery O2 Flow Rate FiO2 01/06/17 10:29 90 147/74 01/06/17 10:25 36.8 18 99 Room Air Intake and Output 01/05/17 01/05/17 01/06/17 Cumulative From/Thru 15:00 23:00 07:00 01/05/17 14:08 - 01/06/17 06:28 Intake Total 300 ml 300 ml Output Total 700 ml 700 ml Balance -400 ml -400 ml Intake Oral 300 ml 300 ml Output Urine Total 700 ml 700 ml # Voids 1 1 # Bowel Movements 0 0 General appearance: No apparent distress, frail, elderly, pleasant, cooperative HEET: Normocephalic atraumatic, no scleral icterus, tongue midline, mucous membranes moist Neck: supple, no carotid bruits Cardiovascular: RRR, distant S1 and S2, 3/6 systolic murmur heard best of the apex radiating to the axilla, JVP 11cm H20, 1+ LE b/l Respiratory: Fair aeration, coarse b/l Abdomen: Soft, nontender, nondistended, + bowel sounds Neuro: Alert, no facial droop, tongue midline, no gross focal deficits, tangential historian Psych: appropriate affect Skin: no rashes on face, neck, and lower extremities Lab and Diagnostics Labs Troponin 0.5 -> 0.67->0.722 Result Diagram: 01/06/1720 01/06/17 0520 X-Rays, CTs and MRIs CT chest 01/05/2017: Changes present that would be most consistent with early mild congestive failure change. No evidence for pulmonary embolus is seen. Persistent and probably unchanged over the past year curvilinear scarring versus less likely mass in the right upper lobe anteriorly. Previous aortic and probable mitral valve replacements. Previous sternotomy. Pacemaker from left upper chest. Assessment & Plan Assessment 86 yo M with very complex medical history including CAD s/p 4V CABG 2006, TAVR for severe and mitraclip for severe MR (both procedures in 2014) admitted with lightheadedness: # Lightheadedness/weakness: suspected etiology is frailty, advanced age, and complex medical illnesses along with recent hip surgery causing deconditioning. Patient educated about his condition. Will work with him on HF management and encouraged him to continue rehab. # Systolic heart faliure with EF 40-45% on Echo 2015 that appears to be 30-35% on today's study visually. Etiology of HF is ischemic cardiomyopathy. Based on the radiographic findings, he has hypervolemia. Plan: - Give furosemide 20mg IV or 40mg IV today and assess response to redose accordingly tomorrow. Goal to be -1L/day over the next couple of days until euvolemia - Hold off beta-blockers and RAI-I for now as patient not on these medications as outpatient. Can consider them prior to discharge if BP allows or consider them as outpatient. # CAD s/p 4V CABG 2005: known CAD. Troponin is elevated but suspect this is from HF as above. No angina based on story. Patient is a poor candidate for cath given his current frail conditoin. Plan: - Continue aspirin 81mg daily - Continue atorvastatin 40mg qhs - Okay to stop heparin gtt after troponins start trending down. # TAVR for severe and mitraclip for severe MR in 03/2015. TAVR is working well but his mitraclip has been a failure due to continued significant mitral regurgitation. Further management of valvular disease as outpatient, which involved monitoring for now. 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 # HTN: well controlled. Continue to monitor. # HLD: statin as above. # Lung cancer s/p radiation oncology treatment at . Thank you for the interesting consultation. If patient continues to not improve with diuresis, he would be a great candidate for palliative care consult. VTE Mechanical Devices: Anti-Embolic stockings Chris Rivero MD Procedures XRay, CTs & MRIs Date of Service: 01/05/17 8187 PROCEDURE: CT ANGIO CHEST PULMONARY EMBOLISM ([id number]) INDICATIONS: syncope, dimer TECHNIQUE: After the administration of intravenous contrast, 2 mm thick sections acquired from the pulmonary apices to the posterior costophrenic angles. 3-dimensional maximum intensity projection (MIP) coronal and sagittal reformats were then acquired through the thorax. For radiation dose reduction, the following was used: automated exposure control, adjustment of mA and/or kV according to patient size. COMPARISON: [facility], CT, CT CHEST WO CON, 12/20/2015, 8:31. [facility], CR, XR CHEST 1VW (PORTABLE), 01/05/2017, 14:35. FINDINGS: Image quality: Excellent. Pulmonary arteries: Pulmonary arteries are normal in size, and demonstrate no intraluminal filling defects to suggest central pulmonary embolism. Lungs and pleura: Curvilinear density in the anterior right upper lobe is considered to be unchanged allowing for differences in technique from the previous CT. The airspace disease/ground glass appearance in the anterolateral aspect of the lower left upper lobe is considered unchanged in series 6 image 28 of the current study compared to series 3 image [address] of the thorax without contrast. There is no pneumothorax. The vasculature appears prominent there are small bilateral pleural effusions right minimally greater than the left. There are interstitial increased markings centrally and peripherally. Central and peripheral airways are patent. Mediastinum: Heart size is enlarged, without pericardial effusion. No mediastinal or hilar adenopathy. There is an aortic valve present. There is a density probably a mitral valve present. Pacemaker wires are present. Thoracic aorta is normal in caliber and enhancement. Esophagus is normal in caliber, without hiatal hernia. Bones and chest wall: No suspicious bony lesions. Ribs and thoracic spine appear intact throughout. . No axillary or supraclavicular adenopathy. Abdomen: Visualized upper abdominal solid organs appear normal in the early arterial phase of enhancement. IMPRESSION: Changes present that would be most consistent with early mild congestive failure change. No evidence for pulmonary embolus is seen. Persistent and probably unchanged over the past year curvilinear scarring versus less likely mass in the right upper lobe anteriorly. Previous aortic and probable mitral valve replacements. Previous sternotomy. Pacemaker from left upper chest. Dictated by: Gabriele Monterroso M.D. on 01/05/2017 at 18:38 Cardiac Echo Impression Echocardiogram Report Name: ASIM GRIFFITH Malcolm Sarmad e: 01/06/2017 Height: 66 in Hospital Exam Location: [facility] Weight: 153 lb Gender: Male BSA: 1.8 m2 : 1930 Age: 86 yrs BP: 136/82 mmHg Reason For Study: SYNCOPAL EPISODE Ordering Physician: HOSPITALIST [facility] Performed By: Kvng Hamm Referring Physician: BRIA Haq Interpretation Summary Left ventricular ejection fraction is estimated to be 30 +/- 5%. The left ventricle is moderate-severely dilated. Anterior wall is severely hypokinetic, apical hypokinesis, septal akinesis. Right ventricular systolic function is borderline reduced. There is severe biatrial enlargement. There is severe mitral regurgitation. 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 The prosthetic aortic valve appears to open well. There is moderate to severe tricuspid regurgitation. The right ventricular systolic pressure is estimated at 65 mmHg assuming a right atrial pressure of 8 mm Hg. Compared to prior echo report on 2014, changes are noted. Brief History 86 yo M h/o CAD s/p 4V CABG 2005, TAVR for severe in 2014 and mitraclip for severe MR in 2014 admitted with lightheadedness. Of note, patient is a poor historian. Patient states that he has been living in a rehabilitation facility due to his left hip surgery a few months ago. Patient has had lightheadedness and weakness for the past few months but this has been worse over the past couple of days. He has fallen couple of times over the past couple of days and he was brought to our emergency room for further care. He denies dyspnea, chest pain, heart racing sensations. Patient is frail and is relatively inactive and cannot go also out of his room without assistance. Denies fevers, chills, nausea, or vomiting. Hospital Course 1. Acute syncopal episodes present on admission, active. -Etiology is unclear, probalble multifactorial in the setting of severe valvular cardiac disease -CTA negative for acute PE -pacemaker interrogated in the ER and the alarm field technician told Dr. Andry Presley there was nothing to explain his syncope. 2. Possible non ST elevation myocardial infarction, present on admission, improving. -probable secondary o acute CHF -continue lipitor, asa 81, lasix, 3. Known aortic stenosis and mitral regurgitation, present on admission, active -sever MR, sever TR, small bioprosthetic aortic leak -Cardilogy indicates that no further operative option are open to patient -medical management -consider palliative care if does not respond to therapy 4. Acute on Chronic congestive heart failure secondary to systolic dysfunction, present on admission, stable. -discharge on slightly higher dose of lasis 20 to 40 -Cardiology would like not to start rai right now, if patient does well recomend carreno PCP to consider starting rai for systolic failure 5. Proximal atrial fibrillation by history. -Currently, in sinus rhythm, monitor 6. Chronic hypertension, present on admission. Currently stable. -stable 7. Chronic anxiety/depression, present on admission. Stable. -Continue Cymbalta and scheduled and p.r.n. Ativan. 8. Chronic pain, present on admission, stable. -Continue oxycodone p.r.n. Disposition: Lives at [facility], pcp is Dr. Richardson, Nailer Machine is Dr. Ivey CODE STATUS: Confirmed with patient DNR/DNI status. Exam Vital Signs (Last) Date Time Temp Pulse Resp B/P Pulse Ox O2 Delivery O2 Flow Rate FiO2 01/09/17 08:46 36.7 77 18 108/66 97 Room Air Exam Eyes; alfred, eom intact ENMT; hydrated mucus membranes, no lesions CV; no JVD, S1S2 present complex crdiac murmurs, both systolic and diastolic, 1+ edema, little less then yesterday, no overt JVD Resp; coarse, otherwise clear GI; soft and benign Skin; dry without rash Neuro 2-12 intact, some dementia but conversant and cooperative Test 01/05/17 14:33 01/06/17 05:20 01/07/17 06:14 01/07/17 13:49 D-Dimer 0.90mg/L FEU (<0.50) Magnesium Level 2.1mg/dL (1.6-2.6) Total Bilirubin 0.7mg/dL (0.0-1.2) Aspartate Amino Transf (AST/SGOT) 67U/L (0-50) Alanine Aminotransferase (ALT/SGPT) 37U/L (0-44) Alkaline Phosphatase 101U/L (25-160) Total Protein 6.6g/dL (6.4-8.4) Albumin 3.8g/dL (3.4-5.0) White Blood Count 7.0th/mm3 (3.8-10.1) Red Blood Count 3.89mil/mm3 (4.40-5.80) Hemoglobin 11.0g/dL (13.8-17.2) Hematocrit 33.8% (41.0-50.0) Mean Corpuscular Volume 86.9fL (81-100) Mean Corpuscular Hemoglobin 28.3pg (27.0-35.0) Mean Corpuscular Hemoglobin Concent 32.5% (32.0-37.0) Red Cell Distribution Width 16.6% (12.3-15.4) Platelet Count 133bil/L (150-400) Neutrophils (%) (Auto) 60.8% (40-74) Lymphocytes (%) (Auto) 23.6% (14-46) Monocytes (%) (Auto) 9.5% (4-12) Eosinophils (%) (Auto) 5.0% (0-5) Basophils (%) (Auto) 1.0% (0-3) Total Creatine Kinase 117U/L (21-232) Troponin T 0.889ug/L (0.0-0.011) Sodium Level 135mEq/L (134-144) Potassium Level 4.9mEq/L (3.5-5.2) Chloride Level 99mEq/L (97-108) Carbon Dioxide Level 20mmol/L (18-29) Blood Urea Nitrogen 22mg/dL (8-27) Creatinine 1.13mg/dL (0.76-1.27) Estimat Glomerular Filtration Rate 65mL/min (>59) Glucose Level 127mg/dL (60-99) Calcium Level 9.2mg/dL (8.5-10.1) Discharge Medications Discharge Medications Acetaminophen (Acetaminophen) 325 Mg Tablet 650 MG PO BID (Reported) Alprazolam (Alprazolam) 0.25 Mg Tablet 0.25 MG PO BID (Reported) Aspirin (Aspirin) 81 Mg Tablet 81 MG PO QAM (Reported) Atorvastatin (Lipitor) 40 Mg Tablet 40 MG PO HS (Reported) Cholecalciferol (Vitamin D3) (Vitamin D3) 2,000 Unit Capsule 2,000 UNIT PO QAM ( Reported) Duloxetine (Cymbalta) 30 Mg Capsule.dr 30 MG PO QAM (Reported) Furosemide (Lasix) 40 Mg Tablet 40 MG PO DAILY Prescribed by: Lucia MOSLEY MD Melatonin (Melatonin) 3 Mg Tablet 3 MG PO HS (Reported) Multivitamin (Multivitamins) 1 Each Capsule 1 EACH PO QAM (Reported) Polyethylene Glycol 3350 (Polyethylene Glycol 3350) 17 Gm Powd.pack 17 GM PO QAM (Reported) HOLD FOR LOOSE STOOLS Potassium Chloride ER (Klor-Con M10) 10 Meq Tablet 10 MEQ PO DAILYWM (Reported) Sennosides (Senna) 8.6 Mg Tablet 8.6 MG PO BID (Reported) As needed Acetaminophen (Acetaminophen) 325 Mg Tablet 650 MG PO Q4H PRN PRN For Fever ( Reported) Alprazolam (Alprazolam) 0.25 Mg Tablet 0.25 MG PO DAILY PRN PRN For Anxiety ( Reported) Bisacodyl (Dulcolax Rectal) 10 Mg Supp.rect 10 MG RC EVERY 3 DAYS PRN PRN CONSTIP (Reported) Bismuth Subsalicylate (Digestive Relief) 262 Mg/15 Ml Oral.susp 30 ML PO BID PRN PRN For Diarrhea or Loose Stool (Reported) Docusate Sodium (Colace) 100 Mg Capsule 100 MG PO BID PRN PRN For Constipation ( Reported) Ibuprofen (Ibuprofen) 200 Mg Capsule 400 MG PO DAILYWM PRN PRN For Pain ( Reported) Mag Hydrox/Al Hydrox/Simeth (Adv Antacid-Antigas Liquid) 400 Mg-400 Mg-40 Mg/5 Ml Oral.susp 30 ML PO TID PRN PRN For Dyspepsia or Heartburn (Reported) Magnesium Hydroxide (Milk of Magnesia) 400 Mg/5 Ml Oral.susp 30 ML PO Q3DAYS PRN PRN For Constipation (Reported) Na Phos,M-B/Na Phos,Di-Ba (Fleet Enema) 133 Ml Enema 133 ML RC Q3DAYS PRN PRN For Constipation (Reported) Nitroglycerin SL (Nitroglycerin SL) 0.4 Mg Tab.subl 0.4 MG SL PRN PRN PRN For Chest Pain (Reported) Ondansetron (Ondansetron) 4 Mg Tablet 4 MG PO Q6HR PRN PRN For Nausea (Reported ) oxyCODONE-Acetaminophen 5-325 mg (oxyCODONE-Acetaminophen 5-325 mg) 1 Each Tablet 1 TAB PO BID PRN PRN For Pain (Reported) Followup Plan Follow-up plan Follow up with your primary care provider in a week or 2. Discharge Diet: Low fat, Low Sodium, Heart Healthy Discharge Activity: Limited until seen by PCP Follow-up with PCP in: 1 week Time spent 40 minutes time spent discharging patient today. copies to: Andre Ivey MD; Cassie Richardson MD, D Geoffrey MD Jan 09, 2017 12:04
--- NOTE | 2017-01-09 13:18 | NUR ---
Social Work: Discharge Data: Pt is on day 4 of hospitalization. EMR reviewed. D/C orders are in. RAYON TESTER spoke with [facility], requested a nurse to nurse. RN notified. Transportation set up fro 2:00pm by facility. RN notified family. No further d/c planning needs at this time. RAYON TESTER will continue to follow if needs arise. Assessment: Pt who is independent at baseline. Plan: Pt will d/c home to [facility] today via facility vehicle at 2:00pm. No further d/c planning needs at this time. RAYON TESTER will continue to follow if needs arise. HORTENSIA Bradford
--- NOTE | 2017-01-09 14:00 | NUR ---
Discharge Nursing Note: Patient was discharged to [facility] where he lives (assisted living facility) at 1400. [facility] pizza driver came to pick patient up in the facility van. His IV was discontinued intact.His Telemetry was removed. All of his discharge information and meds list were prepared for him and the information was reviewed with his nurse "Izzy" at [facility]. His daughter Corrina was notified of the transfer. His Discharge paperwork was sent with him upon transfer.
== END 2017-01-09 14:10 | disposition home or self-care (01) | DRG 280 ==
LOC: SED 13:50 → MPC 17:52 → OBSVTOIN 17:52 → MPC 18:43
PROVIDERS: ADMIT Hospitalist; ATTEND Hospitalist
DX: I21.4 Non-ST elevation (NSTEMI) myocardial infarction (principal); I50.23 Acute on chronic systolic (congestive) heart failure; Z79.82 Long term (current) use of aspirin; Z95.0 Presence of cardiac pacemaker; Z95.1 Presence of aortocoronary bypass graft; Z95.2 Presence of prosthetic heart valve; G47.33 Obstructive sleep apnea (adult) (pediatric); Z87.891 Personal history of nicotine dependence; Z85.110 Personal history of malignant carcinoid tumor of bronchus and lung; I34.0 Nonrheumatic mitral (valve) insufficiency; I35.0 Nonrheumatic aortic (valve) stenosis; I10 Essential (primary) hypertension; F41.9 Anxiety disorder, unspecified; F32.9 Major depressive disorder, single episode, unspecified; G89.29 Other chronic pain; Z66 Do not resuscitate; R55 Syncope and collapse; E78.5 Hyperlipidemia, unspecified; I25.5 Ischemic cardiomyopathy

== ENCOUNTER 2017-02-07 08:40 | Inpatient (IN) | payer MEDICARE, OTHER ==
[~2017-02-07] VITALS: Ht 167.6 cm; Wt 69.0 kg
[2017-02-07] VITALS (7 sets, daily range): BP systolic 111–134; BP diastolic 63–88; PULSE 70–113; RESP 18–24; O2SAT 97–100
[~2017-02-07 08:40] MED LIST changes: +BISM-95 PO; +DOCU-41 PO; +FURO-128 PO; -FURO-129 PO; +MAG-106 PO; +NA P133E23 RC; -TRAM50TA2 PO
--- NOTE | 2017-02-07 09:04 | ED.REPORT ---
HPI-Chest Pain 40 and Over Date of Service February 07, 2017 ED Provider: Tez Logan DO Pt is an 86 y.o. male with an extensive medical hx including right lung carcinoma, CAD s/p CABG, valvular heart disease, A-fib, s/p pacemaker placement , s/p aortic valve replacement and mitral clip procedure, GENA, HTN, HLD, and peripheral vascular disease who presents to the ED via EMS from an [facility] c/o increased SOB and dyspnea on exertion onset 2 weeks ago. He reports associated clear productive cough, dry mouth, and chest pressure. Nursing Notes Stated Complaint: CHEST PAIN Nursing Notes Reviewed: Yes Allergies: Coded Allergies: hydrocodone (Verified Allergy, Mild, 02/07/17) NAUSEA codeine (Verified Allergy, Unknown, 02/07/17) Scheduled Acetaminophen (Acetaminophen) 325 Mg Tablet 650 MG PO BID Alprazolam (Alprazolam) 0.25 Mg Tablet 0.25 MG PO BID Aspirin (Aspirin) 81 Mg Tablet 81 MG PO QAM Cholecalciferol (Vitamin D3) (Vitamin D3) 2,000 Unit Capsule 2,000 UNIT PO QAM Duloxetine (Cymbalta) 30 Mg Capsule.dr 30 MG PO QAM Furosemide (Lasix) 20 Mg Tablet 40 MG PO DAILY Furosemide (Lasix) 20 Mg Tablet 20 MG PO Q2DAY Loratadine (Claritin) 10 Mg Capsule 10 MG PO DAILY Melatonin (Melatonin) 3 Mg Tablet 3 MG PO HS Multivitamin (Multivitamins) 1 Each Capsule 1 EACH PO QAM Polyethylene Glycol 3350 (Polyethylene Glycol 3350) 17 Gm Powd.pack 17 GM PO QAM HOLD FOR LOOSE STOOLS Potassium Chloride ER (Klor-Con M10) 10 Meq Tablet 10 MEQ PO DAILYWM Sennosides (Senna) 8.6 Mg Tablet 8.6 MG PO BID Scheduled PRN Alprazolam (Alprazolam) 0.25 Mg Tablet 0.25 MG PO DAILY PRN PRN For Anxiety Bisacodyl (Dulcolax Rectal) 10 Mg Supp.rect 10 MG RC EVERY 3 DAYS PRN PRN CONSTIP Bismuth Subsalicylate (Digestive Relief) 262 Mg/15 Ml Oral.susp 30 ML PO BID PRN PRN For Diarrhea or Loose Stool Docusate Sodium (Colace) 100 Mg Capsule 100 MG PO BID PRN PRN For Constipation Ibuprofen (Ibuprofen) 200 Mg Capsule 400 MG PO DAILYWM PRN PRN For Pain Mag Hydrox/Al Hydrox/Simeth (Adv Antacid-Antigas Liquid) 400 Mg-400 Mg-40 Mg/5 Ml Oral.susp 30 ML PO QID PRN PRN For Dyspepsia or Heartburn Magnesium Hydroxide (Milk of Magnesia) 400 Mg/5 Ml Oral.susp 30 ML PO Q3DAYS PRN PRN For Constipation Na Phos,M-B/Na Phos,Di-Ba (Fleet Enema) 133 Ml Enema 133 ML RC Q3DAYS PRN PRN For Constipation Nitroglycerin SL (Nitroglycerin SL) 0.4 Mg Tab.subl 0.4 MG SL PRN PRN PRN For Chest Pain Ondansetron (Ondansetron) 4 Mg Tablet 4 MG PO Q6HR PRN PRN For Nausea oxyCODONE-Acetaminophen 5-325 mg (oxyCODONE-Acetaminophen 5-325 mg) 1 Each Tablet 1-2 TAB PO DAILY PRN PRN For Pain General Time Seen by MD: 09:03 Chief Complaint Shortness of breath (w/ dyspnea on exertion) Hx Obtained From: Patient Arrived By: Ambulance Sudden in Onset?: Yes Onset Occurred: More than a week ago... Symptom Duration: Since onset Location: : Substernal Quality: Pressure Severity: Current: Mild Recent Healthcare: Recent hospitalization Past Medical History Past Medical History Notes: PCP: Dr. Richardson Orthopedist: Dr. Wong at [facility]. The patient would like his body donated to the when he passed. Past Medical History Coronary artery disease s/p status post three-vessel CABG in 2005. Congestive heart failure due to systolic/diastolic dysfunction. Atrial fibrillation Hypertension Aortic stenosis, severe status post TAVR March 2015 complicated by complete heart block requiring [place] DDDR pacemaker Adenocarcinoma of the lung Severe mitral regurgitation, status post mitral clip procedure in March 2015. Peripheral artery disease with a history of a right common femoral endarterectomy with patch angioplasty Obstructive sleep apnea, using CPAP Hypertension, Hyperlipidemia Osteoarthritis Anxiety. Benign prostatic hypertrophy Questionable history of hepatitis B, chronic Bladder cyst and hematuria with apparent obstruction s/p indwelling catheter, followed by Dr. Pulido. Chronic low back pain with spinal stenosis, neuropathy of right foot and oseoarthritis Nicotine dependence in remission since 1980. Bladder cancer Past Surgical History Status post left percutaneous transfemoral TAPVR with an ProteoGenix XT pericardial tissue heart valve placed at the [facility] 03/26/2015 Right common femoral artery open endarterectomy with patch angioplasty in 2008 Bladder CA with surgery including lymphadenectomy on the right side by Dr. Pulido L4-L5 back surgery 2009 Aortic valve replacement 2015 CABG x4 in 2005 Pacemaker Mitral clip procedure Right common femoral endarterectomy with patch angioplasty TURP History of cataract surgery Diverticulectomy Reports: Pacemaker insertion Family History Noncontributory Smoking History Former Smoker Social History Lives at [facility] in [place] Alcohol Use: "Social" Drug Use: Denies drug use Other Social History: Good social support, , Local resident Ambulatory Status Cane Review of Systems Dry mouth Respiratory: Reports: Dyspnea on exertion, Prod cough, clear, Shortness of breath Cardiovascular: Reports: Chest pain (Pressure) Complete sys rev & neg: except as marked. Physical Exam Initial Vital Signs Vital Signs (First) Date Time Temp Pulse Resp B/P Pulse Ox O2 Delivery O2 Flow Rate FiO2 02/07/17 09:07 35.8 113 24 134/88 97 Room Air 02/07/17 10:54 2 Initial VS: Reviewed Extremities: Vascular intact, Neuro intact Skin: Warm, Dry, No cyanosis Neurologic: Alert, Oriented, Nonfocal Psychiatric: Mood/affect normal, Behavior normal, Normal thought content General/Constitutional: Awake, Alert, No acute distress, Well appearing, Well developed, Well hydrated, Well nourished, Not toxic appearing Respiratory / Chest: Atraumatic, Breath sounds NL, Breath sounds = bilat, No respiratory distress Heart Rate / Rhythm: Positive: Tachycardia Heart Sounds / Murmur: Positive: Systolic murmur present.. (heard best at lower sternal border) No lower extremity edema Abdomen: Atraumatic, Soft, Non-tender, No guarding, No rebound, No distention ENT: Atraumatic Mouth: Positive: Mucous membranes dry Interpretation & Diagnostics Lab Results Interpretation Result Diagram: 02/08/17 0320 02/08/17 0320 Test 02/07/17 09:28 Prothrombin Time 11.8sec (8.1-12.5) Prothromb Time International Ratio 1.10ratio D-Dimer 1.59mg/L FEU (<0.50) Pro-B-Type Natriuretic Peptide 53868kb/mL (0-486) ECG Interpretation ECG Interpretation: Multiformed PVC's Atrial paced complexes LBBB Unchanged when compared with 01/07/17 Time: 09:06 Interpreted by: ED physician Rhythm / Conduction: Tachycardia (109) Cardiac / Vascular Lab Interp Troponin abnormal X-Ray Chest Interpretation Chest Xray Interpretation: IMPRESSION: Cardiomegaly and interstitial prominence suggesting fluid overload. Dictated by: Cynthia Yin M.D. on 02/07/2017 at 9:48 Approved by: Cynthia Yin M.D. on 02/07/2017 at 9:50 CT Chest Interpretation IMPRESSION: 1. Poor opacification of the subsegmental branches of the right lower lobe suspicious for pulmonary embolus. However, no discrete filling defect is visualized to definitely confirm subsegmental emboli. The pulmonary arteries otherwise opacifies expected. 2. Bilateral low density pleural effusions and compressive atelectasis. 3. Cardiomegaly and pulmonary edema, suggesting congestive failure. 4. Questionable gallbladder wall thickening versus pericholecystic fluid which is poorly characterized on this limited view. If further characterization is warranted, right upper quadrant ultrasound is recommended. These findings were discussed with Dr. Logan at 1:45 PM on . Dictated by: Cynthia Yin M.D. on 02/07/2017 at 13:37 Approved by: Cynthia Yin M.D. on 02/07/2017 at 13:46 Re-Eval/Medical Decision Med Decision/Clinical Course 86-year-old male with a very complex cardiac history including congestive heart failure with an EF of 25-30%, valvular heart disease status post mitral clip and TAVR of the aortic valve, coronary artery disease status post CABG, and transient complete heart block with pacemaker presents with increasing shortness of breath over the past 2 weeks he was admitted about one month ago for similar symptoms. As a result of his last hospitalization his Lasix was increased from 20 mg daily to 40 mg daily. The patient has a significantly elevated troponin here. His EKG is difficult to interpret based off his left bundle branch block. I greatly appreciate Dr. Gallagher's expertise in helping to evaluate and make recommendations this complex cardiac patient. He had an elevated d-dimer and CT angiogram of the chest showed possible/probable right lower lobe subsegmental pulmonary embolus. Given the diagnosis of NSTEMI and the pulmonary embolus he was started on heparin in the ER. He was also treated with IV Lasix in light of his elevated BNP and increased pulmonary vascular congestion seen on chest x-ray. Pacemaker interrogation is pending Source of Hx: Old records Time of Eval: 11:22 Re-Evaluation/Progress Note: Pt rechecked. Pt is resting. Discussed lab and imaging results as well as need for admit. Pt understands and agrees with plan. Consultation #1: Referral / Consult Name: Rachel Gallagher MD Consulted With: Cardiology Requested Call at: 10:58 Call Returned at: 11:14 Tax Clerk: Will see patient Note: Discussed pt condition. She will evaluate pt in ED. Consultation #2: Call Returned at: 13:46 Note: Dr. Yin, radiology, discussed imaging results of probable subsegmental PE. Consultation #3: Referral / Consult Name: Rachel Gallagher MD Call Returned at: 13:50 Note: Dr. Gallagher reviewed imaging and recommends pt be admitted and recieve heparin drip. Consultation #4: Referral / Consult Name: Ramiro Arzola MD Consulted With: Hospitalist Call Returned at: 15:04 Tax Clerk: Accepts admit Note: Discussed pt conditon and consult with Dr. Gallagher. Accepts admit Counseled Regarding: Diagnosis, Lab results, Need for follow-up, When/why to return to ED Discharge & Departure Primary Impression: CHF (congestive heart failure) Congestive heart failure type: unspecified congestive heart failure type Congestive heart failure chronicity: acute on chronic Qualified Code: I50.9 - Heart failure, unspecified Additional Impressions: Pulmonary emboli Pulmonary embolism type: other Chronicity: acute Acute cor pulmonale presence: without acute cor pulmonale Qualified Code: I26.99 - Other pulmonary embolism without acute cor pulmonale Non-ST elevation myocardial infarction (NSTEMI) Disposition: ADMITTED TO HOSPITAL Discharge Condition All VS Reviewed: Yes Condition: Improved Referrals: Allie Haq (PCP) Mg Attestation Portions of this note were transcribed by Lenny Rendon. I, Dr. Logan personally performed the history, physical exam and medical decision-making; I reviewed and confirmed the accuracy of the information in the transcribed note. Signed by: Mg Cavazos, 02/07/17 and 2483 copies to: Allie Haq Gary R DO February 07, 2017 09:04 LENNY RENDON February 07, 2017 09:12 Time of Eval: 11:22 Re-Evaluation/Progress Note: Pt rechecked. Pt is resting. Discussed lab and imaging results as well as need for admit. Pt understands and agrees with plan. Consultation #1: Referral / Consult Name: Rachel Gallagher MD Consulted With: Cardiology Requested Call at: 10:58 Call Returned at: 11:14 Tax Clerk: Will see patient Note: Discussed pt condition. She will evaluate pt in ED. Consultation #2: Call Returned at: 13:46 Note: Dr. Yin, radiology, discussed imaging results of probable subsegmental PE. Consultation #3: Referral / Consult Name: Rachel Gallagher MD Call Returned at: 13:50 Note: Dr. Gallagher reviewed imaging and recommends pt be admitted and recieve heparin drip. Consultation #4: Referral / Consult Name: Ramiro Arzola MD Consulted With: Hospitalist Call Returned at: 15:04 Tax Clerk: Accepts admit Note: Discussed pt conditon and consult with Dr. Gallagher. Accepts admit Counseled Regarding: Diagnosis, Lab results, Need for follow-up, When/why to return to ED Discharge & Departure Primary Impression: CHF (congestive heart failure) Additional Impressions: Pulmonary emboli Pulmonary embolism type: other Chronicity: acute Elevated troponin Disposition: ADMITTED TO HOSPITAL Discharge Condition All VS Reviewed: Yes Condition: Improved Referrals: Allie Haq (PCP) Mg Attestation Portions of this note were transcribed by Lenny Rendon. I, Dr. Logan personally performed the history, physical exam and medical decision-making; I reviewed and confirmed the accuracy of the information in the transcribed note. Signed by: Mg Cavazos, 02/07/17 and 1513 copies to: Allie Haq Gary R DO February 07, 2017 09:04 LENNY RENDON February 07, 2017 09:12
[2017-02-07 09:13] LABS: BASOPHILS % (AUTO) 0.9 % (0-3); EOSINOPHILS % (AUTO) 0.2 % (0-5); MONOCYTES % (AUTO) 9.6 % (4-12); Mean Corpuscular Hemoglobin 30.4 pg (27.0-35.0); Mean Corpuscular Volume 91.3 fL (81-100); Platelet Count 172 bil/L (150-400)
[2017-02-07 09:38] LABS: D-Dimer 1.59 mg/L FEU (<0.50); INR 1.1 ratio
--- NOTE | 2017-02-07 09:52 | DRSVH ---
PROCEDURE: X-RAY CHEST ONE VIEW, PORTABLE ([id number]) INDICATIONS: CHEST PAIN TECHNIQUE: One view of the chest was acquired. COMPARISON: [facility], CT, CT ANGIO CHEST PE, 01/05/2017, 18:10. FINDINGS: Surgical changes and devices: Dual-lead cardiac pacer is unchanged. Patient is status post median geoff rnotomy and CABG. The superior sternotomy wire is fractured as before. There is an aortic valve repla cement. Lungs and pleura: Right pleural calcification is redemonstrated. There is diffuse interstitial promin ence. No focal airspace opacities. No pleural effusion or pneumothorax. The Mediastinum: Mediastinal contours appear normal. Heart size is enlarged, as before. Bones and chest wall: No suspicious bony lesions. Overlying soft tissues appear unremarkable. IMPRESSION: Cardiomegaly and interstitial prominence suggesting fluid overload. Dictated by: Cynthia Yin M.D. on 02/07/2017 at 9:48 Approved by: Cynthia Yin M.D. on 02/07/2017 at 9:50
[2017-02-07 09:59] LABS: Magnesium 2.1 mg/dL (1.6-2.6)
[2017-02-07 10:01] LABS: TROPONIN T 0.633 ug/L (0.0-0.011)
[2017-02-07] MEDS ORDERED: Furosemide 10 mg/mL 2 mL Inj IVPUSH ONE (11:30)
--- NOTE | 2017-02-07 13:47 | DRSVH ---
PROCEDURE: CT ANGIO CHEST PULMONARY EMBOLISM ([id number]) INDICATIONS: elevated d dimer, tachycardia, sob, lung ca TECHNIQUE: After the administration of intravenous contrast, 2 mm thick sections acquired from the pulmonary api stephanie to the posterior costophrenic angles. 3-dimensional maximum intensity projection (MIP) coronal a nd sagittal reformats were then acquired through the thorax. For radiation dose reduction, the follo wing was used: automated exposure control, adjustment of mA and/or kV according to patient size. COMPARISON: [facility], CT, CT ANGIO CHEST PE, 01/05/2017, 18:10. FINDINGS: Image quality: Excellent. Pulmonary arteries: Although there is no discrete filling defect present, there is poor opacification of the subsegmental branches of the right lower lobe suspicious for pulmonary embolus. The pulmonary arteries are otherwise well opacified without intraluminal filling defects. Lungs and pleura: There is a moderate right and a small left low density oral effusion. There is diff use interlobular septal thickening and groundglass opacity throughout the lung suggestive of pulmonar y edema. There is atelectasis at the bilateral lung bases. Mediastinum: Heart size is markedly enlarged, without pericardial effusion. No mediastinal or hilar adenopathy. Patient is status post aortic valve replacement. Cardiac pacer wires and prior CABG are noted. Thoracic aorta is normal in caliber and enhancement. Esophagus is normal in caliber, without hiatal hernia. Bones and chest wall: No suspicious bony lesions. Ribs and thoracic spine appear intact throughout. Thyroid gland is unremarkable. No axillary or supraclavicular adenopathy. Abdomen: There is questionable gallbladder wall thickening versus fluid around the contracted gallbl adder within the gallbladder fossa which is poorly characterized (series 4, image 137). Visualized up per abdominal solid organs appear otherwise grossly normal in the early arterial phase of enhancement . IMPRESSION: 1. Poor opacification of the subsegmental branches of the right lower lobe suspicious for pulmonary e mbolus. However, no discrete filling defect is visualized to definitely confirm subsegmental emboli. The pulmonary arteries otherwise opacifies expected. 2. Bilateral low density pleural effusions and compressive atelectasis. 3. Cardiomegaly and pulmonary edema, suggesting congestive failure. 4. Questionable gallbladder wall thickening versus pericholecystic fluid which is poorly characterize d on this limited view. If further characterization is warranted, right upper quadrant ultrasound is recommended. These findings were discussed with Dr. Logan at 1:45 PM on . Dictated by: Cynthia Yin M.D. on 02/07/2017 at 13:37 Approved by: Cynthia Yin M.D. on 02/07/2017 at 13:46
[2017-02-07] MEDS ORDERED: Heparin 25K Unit/500mL 0.45 NS 25,000 UNIT in IV Premix 1 EACH IV SCH ×2 (14:00→15:50)
[2017-02-07] MEDS ORDERED: Heparin 5,000 Unit/mL Inj IVPUSH PRN ×3 (14:00→16:05)
[2017-02-07] MEDS ORDERED: FURO-129 PO ×2 (14:45)
[2017-02-07] MEDS ORDERED: LORA10CA PO (14:45)
[2017-02-07] MEDS ORDERED: Polyethylene Glycol (PEG) 17 Gm Powder PO PRN (15:15)
[2017-02-07] MEDS ORDERED: Ondansetron 2 mg/mL 2 mL Inj IVPUSH PRN (15:15)
[2017-02-07] MEDS ORDERED: Alum-Mag Hydrox-Simeth 30 mL Suspension PO PRN (15:15)
[2017-02-07] MEDS ORDERED: oxyCODONE-Acetamin 5-325 mg Tablet PO PRN (15:25)
[2017-02-07] MEDS ORDERED: Bismuth Subsalicylate 240 mL Suspension PO PRN (15:25)
[2017-02-07] MEDS ORDERED: Furosemide 10 mg/mL 4 mL Inj IVPUSH ONE (16:30)
[2017-02-07] MEDS ORDERED: MeTOProlol XL 25 mg ER24 Tablet PO ONE (16:30)
--- NOTE | 2017-02-07 16:37 | PCM.HPMED ---
Subjective Date of Service February 07, 2017 Primary Provider: Admitting Physician: Ramiro Arzola MD Primary Care Physician: Allie Haq Attending Physician: Ramiro Arzola MD Chief Complaint: chest discomfort, shortness of breath History of Present Illness: 86yo very pleasant gentleman with hx of CAD, s/p cabg, mitral, aortic valve replacements, pacemaker, systolic chf, htn, hld, hx of lung ca. progressively worsening dyspnea with chest tightness over the past 2 weeks. intermittent worse with exertion. better with rest. associated with intermittent palpitations. right now at rest feels ok. no chest discomfort. a little short of breath. no productive sputum, fever or chills. no neck pain, no abdominal pain. + orthopnea. Review of Systems: Positive Review of Symptoms mentioned and elaborated on in HPI. Head: Denies H/A, trauma, loss of consciousness. Eyes: Denies visual loss, diplopia. Ears: Denies: deafness, tinnitis, discharge, pain Nose: Denies discharge, obstruction, epistaxis Mouth: Denies sores, gingival bleeding, jaw pain Neck: Denies stiffness, issues swallowing. Respiratory: see hpi Cardiovascular: see hpi Gastrointestinal: Denies melena, abd pain, n/v/d Genitourinary: Denies dysuria, discharge. Skin: Denies: lesions, rashes, pruritus. Musculoskeletal: Denies joint pain, swelling or increased warmth. Neuro: Denies numbness, tingling, weakness. Psyc: Currently denies feelings of anxiety, depression. Allergies Coded Allergies: hydrocodone (Verified Allergy, Mild, 02/07/17) NAUSEA codeine (Verified Allergy, Unknown, 02/07/17) Home Medications see med rec. PMH as discussed in the hpi Surgical History as discussed in the hpi Family History denies Social History Hx Alcohol Use: No Hx Substance Use: No Hx Tobacco Use: No Smoking Status: Former Smoker Exam Vital Signs Vital Sign - Last Date Time Temp Pulse Resp B/P Pulse Ox O2 Delivery O2 Flow Rate FiO2 02/07/17 16:20 35.8 108 20 124/81 99 Room Air 2 Exam General: No acute distress. Awake, alert. Head: Normocephalic, atraumatic. Eyes: White sclera. Conjunctiva non-injected. Mouth & Throat: No Bleeding. No erythema, lesions, exudates visualized. Neck: No tender adenopathy. Trachea midline. Respiratory: bibasilar rales otherwise cta. Cardiovascular: RRR. Pulses 2+ equal bilaterally. Abdomen: Normal bowel sounds x4 quadrants. Soft, non-tender, non-distended. Extremities: Intact. no joint effusions. no lower extremity tenderness, swelling, erythema or increased warmth. Skin: Intact, no lesions, no rash. Neurologic: Awake, alert, oriented x3. No focal deficits. Psychiatric: Appropriate mood and affect. Cooperative. Lab and Diagnostics Result Diagram: 02/07/17 0906 X-Rays, CTs and MRIs Date of Service: 02/07/17 0841 PROCEDURE: X-RAY CHEST ONE VIEW, PORTABLE ([id number]) INDICATIONS: CHEST PAIN TECHNIQUE: One view of the chest was acquired. COMPARISON: [facility], CT, CT ANGIO CHEST PE, 01/05/2017, 18:10. FINDINGS: Surgical changes and devices: Dual-lead cardiac pacer is unchanged. Patient is status post median sternotomy and CABG. The superior sternotomy wire is fractured as before. There is an aortic valve replacement. Lungs and pleura: Right pleural calcification is redemonstrated. There is diffuse interstitial prominence. No focal airspace opacities. No pleural effusion or pneumothorax. The Mediastinum: Mediastinal contours appear normal. Heart size is enlarged, as before. Bones and chest wall: No suspicious bony lesions. Overlying soft tissues appear unremarkable. IMPRESSION: Cardiomegaly and interstitial prominence suggesting fluid overload. Dictated by: Cynthia Yin M.D. on 02/07/2017 at 9:48 Approved by: Cynthia Yin M.D. on 02/07/2017 at 9:50 Date of Service: 02/07/17 1127 PROCEDURE: CT ANGIO CHEST PULMONARY EMBOLISM ([id number]) INDICATIONS: elevated d dimer, tachycardia, sob, lung ca TECHNIQUE: After the administration of intravenous contrast, 2 mm thick sections acquired from the pulmonary apices to the posterior costophrenic angles. 3-dimensional maximum intensity projection (MIP) coronal and sagittal reformats were then acquired through the thorax. For radiation dose reduction, the following was used: automated exposure control, adjustment of mA and/or kV according to patient size. COMPARISON: [facility], CT, CT ANGIO CHEST PE, 01/05/2017, 18:10. FINDINGS: Image quality: Excellent. Pulmonary arteries: Although there is no discrete filling defect present, there is poor opacification of the subsegmental branches of the right lower lobe suspicious for pulmonary embolus. The pulmonary arteries are otherwise well opacified without intraluminal filling defects. Lungs and pleura: There is a moderate right and a small left low density oral effusion. There is diffuse interlobular septal thickening and groundglass opacity throughout the lung suggestive of pulmonary edema. There is atelectasis at the bilateral lung bases. Mediastinum: Heart size is markedly enlarged, without pericardial effusion. No mediastinal or hilar adenopathy. Patient is status post aortic valve replacement. Cardiac pacer wires and prior CABG are noted. Thoracic aorta is normal in caliber and enhancement. Esophagus is normal in caliber, without hiatal hernia. Bones and chest wall: No suspicious bony lesions. Ribs and thoracic spine appear intact throughout. Thyroid gland is unremarkable. No axillary or supraclavicular adenopathy. Abdomen: There is questionable gallbladder wall thickening versus fluid around the contracted gallbladder within the gallbladder fossa which is poorly characterized (series 4, image 137). Visualized upper abdominal solid organs appear otherwise grossly normal in the early arterial phase of enhancement. IMPRESSION: 1. Poor opacification of the subsegmental branches of the right lower lobe suspicious for pulmonary embolus. However, no discrete filling defect is visualized to definitely confirm subsegmental emboli. The pulmonary arteries otherwise opacifies expected. 2. Bilateral low density pleural effusions and compressive atelectasis. 3. Cardiomegaly and pulmonary edema, suggesting congestive failure. 4. Questionable gallbladder wall thickening versus pericholecystic fluid which is poorly characterized on this limited view. If further characterization is warranted, right upper quadrant ultrasound is recommended. These findings were discussed with Dr. Logan at 1:45 PM on . Dictated by: Cynthia Yin M.D. on 02/07/2017 at 13:37 Approved by: Cynthia Yin M.D. on 02/07/2017 at 13:46 12-lead ECG sinus with LBBB Assessment & Plan -- acute on chronic systolic heart failure -- NSTEMI --CAD heparin infusion, aspirin, statin, beta vito. IV lasix prn nitro, morphine echocardiogram. cbc, bmp, magnesium, tsh, lipid panel discussed with cardiology further cardiac diagnostics per their recommendations. -- potential pe seen on cta of chest on heparin infusion now. LE doppler to eval for dvt may need to repeat study in future. -- htn -- hld antihypertensives as tolerated. statin. f/e/n: npo for now in case of procedure dispo: pending clinical improvement. cardiology. VTE Prophylaxis: Other (on heparin infusion.) Resuscitation Status: DNR/DNI:Do Not Resuscitate/Intubate Ramiro Arzola MD February 07, 2017 16:37
--- NOTE | 2017-02-07 20:33 | DRSVH ---
[facility] [address] [place] [address] Echocardiogram Report Name: ASIM GRIFFITH Sarmad e: 02/07/2017 Height: 66 in Hospital Exam Location: [facility] Weight: 160 lb Gender: Male BSA: 1.8 m2 : 1930 Age: 86 yrs BP: 124/81 mm Hg Reason For Study: Chest pain, Shortness of breath History: TAVR Ordering Physician: HOSPITALIST KASSIDY Performed By: Crystal Beltran Referring Physician: Andre Ivey Interpretation Summary NSR with wide QRS complexes and frequent PVC's. The left ventricle is severely dilated (measuring 6.7 cm in end diastole). There is severely reduced LV systolic function estimated at 20-25%. EPSS is 2.7 cm c/w severe cardiomyopathy. There are focal wall motion abnormalities with septal akinesis, and hypokinesis in all other visualized segments. Best movement is demonstrated by mid-inferior, mid-inferolateral and basal inferolateral segments. Mitral valve has been repaired by history with a clip. There is moderate- severe eccentric posterolaterally directed mitral regurgitation. Aortic valve is replaced by history with a 26 mm Venegas prosthesis via TAVR. It is functioning normally. There is moderate central TR in the setting of pacing lead traversing the tricuspid valve. Estimated PA systolic pressure of 64 mm Hg assuming RA pressure of 20 mm Hg. Compared to prior study 01/06/2017, EF is a little less dynamic. Focal wall motion abnormalities are unchanged. Valvular abnormalities are unchanged. Procedure: A two-dimensional transthoracic echocardiogram with color flow and Doppler was performed. The study quality was technically adequate. The suprasternal notch views were difficult to obtain and are suboptimal in quality. Comparison is made with the echocardiogram of 01/06/2017. The patient has a paced rhythm. The patient had occasional PVCs during the exam. Left Ventricle: Left ventricular wall thickness is normal. The left ventricle is severely dilated. There is no thrombus. Diastolic function could not be accurately assessed due to confounding valvular disease. Right Ventricle: There is a pacemaker lead in the right ventricle. The right ventricle is grossly normal size. Right ventricular systolic function is mildly reduced. Atria: Both atria are severely dilated. There is no Doppler evidence for an interatrial shunt. Mitral Valve: There is severe mitral annular calcification. The mitral valve leaflets are moderately calcified. The mitral valve chordae are thickened and/or calcified. While there is pulmonary vein systolic flow reversal, estimated RV by PISA is 19 mL with EROA of 0.14 cm squared. Flow reversal noted in pulmonary veins consistent with significant mitral regurgitation. There are multiple regurgitant jets present. Aortic Valve: There is a bioprosthetic aortic valve. The prosthetic aortic valve is well-seated. There is trace perivalvular regurgitation around the prosthetic aortic valve. There is trace intravalvular regurgitation through the prosthetic aortic valve. Tricuspid Valve: The tricuspid valve leaflets are thin and pliable. There are multiple regurgitant jets. There is moderate to severe tricuspid regurgitation. Pulmonic Valve: The pulmonic valve leaflets are thin and pliable; valve motion is normal. There is trace pulmonic regurgitation. Great Vessels: The ascending aorta is normal in size. The aortic arch could not be visualized. The IVC is of normal diameter and collapses less than 50% with a sniff. This suggests a right atrial pressure of 8 mm Hg. Pericardium/ Pleura There is no pericardial effusion. MMode/2D Measurements & Calculations LVIDd: 6.9 cm RA long axis LVOT diam LVIDs: 6.4 cm LA A2 area: 26.7 cm FS: 6.2 % LA A4 area: 33.5 cm RA area asc Aorta EPSS: 2.7 cm LA length (vol): 6.4 cm Diam: 2.9 cm IVSd: 0.78 cm LA vol: 118.0 ml : 32.3 cm LVPWd: 0.77 cm LA vol index RA vol : 136.ml RA IVC diam: 1.6 cm : 74.8 mm2 LV gorman. diameter/BSA LV sys. diameter/BSA RVD1 (basal) (cm/m^2): 3.8 (cm/m^2): 3.5 Doppler Measurements & Calculations Ao V2 max MV E max yonatan MV E/A: 1.4 TR max yonatan : 170.8 cm/sec : 156.0 cm/sec Med Peak E' Yonatan : 326.3 cm/sec Ao max PG MV A max yonatan TR max PG : 11.7 mmHg : 109.4 cm/sec E/E' med: 27.0 : 42.6 mmHg Ao mean PG MV P1/2t: 44.9 msecLat Peak E' Yonatan PA V2 max MR ERO: 0.12 cm2 : 47.9 cm/sec LVOT Max Yonatan E/E' lat: 24.0 PA mean PG : 50.1 cm/sec E/e' average: 25.5 : 0.41 mmHg REINA(I,D) PA Accel Time : 0.91 cm : 0.05 sec sev ratio MV dec time MV P1/2t max yonatan Ao V2 mean LV V1 max PG : 0.15 sec : 112.1 cm/sec Ao V2 VTI: 20.8 cm LV V1 VTI: 7.0 cm MVA(P1/2t): 4.9 cm2 REINA(V,D): 0.80 cm2 MR flow rate PA V2 mean REINA indexed to BSA : 58.2 cm3/sec : 29.0 cm/sec (cm^2/m^2): 0.50 MR PISA radius Reading Physician:08:32 PM
--- NOTE | 2017-02-07 20:40 | CONS ---
[address] [address] CONSULTATION REPORT PATIENT: ASIM GRIFFITH : 1930 MR#: [id number] ADMIT: 02/07/2017 JOB ID: [id number] DATE OF SERVICE: 02/07/2017 CHIEF COMPLAINT: Shortness of breath. 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 The patient was recently hospitalized with syncope while he was eating. This problem occurred January 05, 2017. At that time, his troponin T was severely elevated at 0.889. This was happening in the setting of normal kidney function. Dr. Rivero was consulted, but having reviewed patient's chart he decided that patient was not a candidate for invasive therapy and managed him medically. Actually it does not look like the patient had a device interrogation at that time nor does it look like the patient was placed on heparin drip at that time for medical management of nonSTEMI. Of note, the patient has uninterpretable EKG due to old left bundle branch block. Be that as it may, the patient is coming in with worsening shortness of breath and fatigue. This problem has been progressively worse in the past two weeks. He also reports chest tightness under his breast bone. Has been going off and on for the past two weeks. It is nonexertional and comes and goes in spells that lasts a few minutes each time and Cardiology is consulted to assist with management. PAST MEDICAL HISTORY: 1. Coronary artery disease, status post CABG. Surgical anatomy is BUTCHER to LAD, in situ FIDEL to PDA, radial to obtuse marginal touching down onto the diagonal branch. Of note, FIDEL and BUTCHER are in situ grafts. 2. History of bladder cancer followed by serial cystoscopy. 3. Transient complete heart block, status post dual-chamber permanent pacemaker implanted April 02, 2015. 4. Obstructive sleep apnea, on CPAP. 5. Hypertension. 6. Progressive cardiomyopathy. Ejection fraction was normal at [facility], March 2015 (53% with septal hypokinesis), now ejection fraction is about 25% to 30% on personal review of today's echocardiogram. 7. Severe aortic stenosis, status post transcatheter aortic valve replacement via Venegas XT 26 mm transcatheter aortic valve replacement. 8. Severe mitral regurgitation, status post mitral clip. 9. History of right apical lung mass with associated ground-glass opacity suspicious for malignancy. CT-guided core biopsy was positive for adenocarcinoma. 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 No definitive invasive component. The patient had a consultation with lung specialist. He did not want to undergo surgical therapy at that time. He had a meeting with Dr. Rikki Martin and he last saw her in May 2015, and has not seen her since, and I see no indication that he had any radiation therapy for this health problem. 10. History of peripheral arterial disease, status post right common femoral artery endarterectomy. FAMILY HISTORY: Brother with cardiac arrest at age 64. Father with congestive heart failure and a heart attack before age 60. Mother with congestive heart failure. SOCIAL HISTORY: The patient is a former smoker. He quit in 1980. ALLERGIES: 1. VICODIN. 2. ATENOLOL. HOME MEDICATIONS: 1. Aspirin 81 mg daily. 2. Lipitor 40 mg daily. 3. Lasix 20 mg daily. 4. Potassium chloride 10 mEq daily. 5. Oral bowel regimen. 6. Duloxetine 30 mg daily. 7. Various fzyl-wyb-ormolar products including vitamin D3, oral bowel regimen, multivitamin, and ibuprofen. PHYSICAL EXAM: The patient is a tachypneic man, sitting in bed. Eyes: No scleral icterus. Neck supple. No lymphadenopathy. Heart: Normal S1, S2. There is a 2/6 systolic ejection murmur at right upper sternal border. Lungs with crackles at bases bilaterally. Abdomen soft, present bowel sounds. No hepatosplenomegaly. Extremities with no edema. Skin: No rashes or lesions. There is a well-healed sternotomy scar. Chest CT: I personally reviewed. It shows significant interstitial opacities concerning for pulmonary edema. It also shows a nodule in the right lung that I think is consistent with his previously documented lung cancer. On personal review, he also has previously deployed transcatheter aortic valve replacement. He has mitral clip. He has a mass in the right lower lobe that is consistent with previously documented lung cancer. On personal review, it is a pleural-based mass, and it measures about 1 cm in diameter. There is possible subsegmental right lower lobe PE, but it is by no means certain and he has got moderate bilateral pleural effusions. The patient also has heavy calcification of his aorta. I did a limited device check. He had less than 1% mode switch episodes and they actually look like sinus tachycardia. ASSESSMENT AND PLAN: Labs reviewed. His troponin T remains very high, 0.875. ProBNP is very high. Labs still for whatever reason are listed as pending in the computer and I will call the lab to double-check. ASSESSMENT/PLAN: This is a complex, 86-year-old man. He has a non-STEMI. He has progressive cardiomyopathy. His EF was normal back in 2014 when he had his valve replacement and mitral clip and now his EF is 25%, 30%. His EKG unfortunately is uninterpretable due to old left bundle branch block. His prognosis is difficult and informed by multiple comorbid conditions including right lung adenocarcinoma in situ, frailty, mild cognitive impairment, as well as severe valvular heart disease. I think we need to have a family meeting and discuss goals of care with this patient. I think Dr. Rivero, my partner, has already evaluated this patient when he had non STEMI in January 2017 and made the assessment that patient was not a good candidate for invasive therapy, but I think we need to revisit this important subject and discuss his treatment plan accordingly. It would not surprise me at all if he had graft failure at some point between his reassuring cath in February 2015 and now he has severe pit river disease with occluded mid LAD, occluded proximal circumflex, and severely diseased right coronary artery. At that time though he had patent BUTCHER to LAD and patent FIDEL to right coronary artery RV branch and patent vein graft to diagonal with a skip graft to obtuse marginal branch. The small pulmonary embolism is in question but I think it is reasonable to heparinize this patient. I think it is reasonable to change his p.o. Lasix to IV Lasix. I will also request a formal device check from [facility]. Thank you very much for the opportunity to participate in this patient's care.
[2017-02-07] MEDS: ALPRAZolam 0.25 mg Tablet PO SCH (21:43)
[2017-02-08] VITALS (9 sets, daily range): BP systolic 105–127; BP diastolic 61–85; PULSE 52–102; RESP 16–20; O2SAT 95–98
[2017-02-08 03:36] LABS: BASOPHILS % (AUTO) 0.6 % (0-3); EOSINOPHILS % (AUTO) 1.1 % (0-5); MONOCYTES % (AUTO) 10.6 % (4-12); Mean Corpuscular Hemoglobin 30.3 pg (27.0-35.0); Mean Corpuscular Volume 92.7 fL (81-100); NEUTROPHILS % (AUTO) 62.4 % (40-74); Platelet Count 147 bil/L (150-400)
[2017-02-08] MEDS: Heparin 25K Unit/500mL 0.45 NS 25,000 UNIT in IV Premix 1 EACH IV SCH ×4 (04:06→21:02)
[2017-02-08 04:45] LABS: Magnesium 2.2 mg/dL (1.6-2.6); Phosphorus 4.5 mg/dL (2.5-4.9)
[2017-02-08 04:58] LABS: TROPONIN T 1.93 ug/L (0.0-0.011)
[2017-02-08] MEDS: DULoxetine 30 mg DR Capsule PO SCH (08:25)
[2017-02-08] MEDS: ALPRAZolam 0.25 mg Tablet PO SCH ×2 (08:26→21:01)
--- NOTE | 2017-02-08 13:53 | PCM.PNMED ---
Subjective Date of Service February 08, 2017 Subjective Pt notes reduction of chest pain this morning during exam. But he was up much of the night due to anxiety related to his current condition and he noted and acute worsening again around 4am which resolved by later in the morning. He notes excertion, even mild has continued to cause worsening of chest pain along upper aspect of his chest, but this has been the case for the last month. He is eating during my interview and exam today, and notes currently actually feeling pretty well while sitting in bed. He continues to consider if intervention is right for him, chest pain has sevre limited his activities over past month, but he understands as well the procedure which may improve his condition come with a high risk of mortality. Exam Vital Signs Vital Sign - Last Date Time Temp Pulse Resp B/P Pulse Ox O2 Delivery O2 Flow Rate FiO2 02/08/17 11:27 36.7 84 16 111/61 98 Nasal Cannula 2.00 Intake and Output 02/07/17 02/07/17 02/08/17 Cumulative From/Thru 15:00 23:00 07:00 02/07/17 09:07 - 02/08/17 06:37 Intake Total 636 ml 1100 ml 1736 ml Output Total 375 ml 900 ml 1275 ml Balance 261 ml 200 ml 461 ml Intake Oral 636 ml 1100 ml 1736 ml Output Urine Total 375 ml 900 ml 1275 ml # Bowel Movements 0 0 0 General: Alert, Oriented X3, Cooperative, No Acute Distress Chest & Lungs: Clear to auscultation & percussion Cardiovascular: Regular Rate/Rhythm, Other (3/6 systlic murmur is present. ) Extremities: No cyanosis/clubbing/edma bilat Neurological: Grossly Neurologically Intact, Other (Mild dementia but pt demonstrates good cognative thinking, recalls most of converdation and medical history. ) IVs and Medications Medications Reviewed: Medications were reviewed in detail Lab and Diagnostics Result Diagram: 02/08/17 0320 02/08/17 0320 X-Rays, CTs and MRIs Date of Service: 02/07/17 0841 PROCEDURE: X-RAY CHEST ONE VIEW, PORTABLE ([id number]) INDICATIONS: CHEST PAIN TECHNIQUE: One view of the chest was acquired. COMPARISON: [facility], CT, CT ANGIO CHEST PE, 01/05/2017, 18:10. FINDINGS: Surgical changes and devices: Dual-lead cardiac pacer is unchanged. Patient is status post median sternotomy and CABG. The superior sternotomy wire is fractured as before. There is an aortic valve replacement. Lungs and pleura: Right pleural calcification is redemonstrated. There is diffuse interstitial prominence. No focal airspace opacities. No pleural effusion or pneumothorax. The Mediastinum: Mediastinal contours appear normal. Heart size is enlarged, as before. Bones and chest wall: No suspicious bony lesions. Overlying soft tissues appear unremarkable. IMPRESSION: Cardiomegaly and interstitial prominence suggesting fluid overload. Dictated by: Cynthia Yin M.D. on 02/07/2017 at 9:48 Approved by: Cynthia Yin M.D. on 02/07/2017 at 9:50 Date of Service: 02/07/17 1127 PROCEDURE: CT ANGIO CHEST PULMONARY EMBOLISM ([id number]) INDICATIONS: elevated d dimer, tachycardia, sob, lung ca TECHNIQUE: After the administration of intravenous contrast, 2 mm thick sections acquired from the pulmonary apices to the posterior costophrenic angles. 3-dimensional maximum intensity projection (MIP) coronal and sagittal reformats were then acquired through the thorax. For radiation dose reduction, the following was used: automated exposure control, adjustment of mA and/or kV according to patient size. COMPARISON: [facility], CT, CT ANGIO CHEST PE, 01/05/2017, 18:10. FINDINGS: Image quality: Excellent. Pulmonary arteries: Although there is no discrete filling defect present, there is poor opacification of the subsegmental branches of the right lower lobe suspicious for pulmonary embolus. The pulmonary arteries are otherwise well opacified without intraluminal filling defects. Lungs and pleura: There is a moderate right and a small left low density oral effusion. There is diffuse interlobular septal thickening and groundglass opacity throughout the lung suggestive of pulmonary edema. There is atelectasis at the bilateral lung bases. Mediastinum: Heart size is markedly enlarged, without pericardial effusion. No mediastinal or hilar adenopathy. Patient is status post aortic valve replacement. Cardiac pacer wires and prior CABG are noted. Thoracic aorta is normal in caliber and enhancement. Esophagus is normal in caliber, without hiatal hernia. Bones and chest wall: No suspicious bony lesions. Ribs and thoracic spine appear intact throughout. Thyroid gland is unremarkable. No axillary or supraclavicular adenopathy. Abdomen: There is questionable gallbladder wall thickening versus fluid around the contracted gallbladder within the gallbladder fossa which is poorly characterized (series 4, image 137). Visualized upper abdominal solid organs appear otherwise grossly normal in the early arterial phase of enhancement. IMPRESSION: 1. Poor opacification of the subsegmental branches of the right lower lobe suspicious for pulmonary embolus. However, no discrete filling defect is visualized to definitely confirm subsegmental emboli. The pulmonary arteries otherwise opacifies expected. 2. Bilateral low density pleural effusions and compressive atelectasis. 3. Cardiomegaly and pulmonary edema, suggesting congestive failure. 4. Questionable gallbladder wall thickening versus pericholecystic fluid which is poorly characterized on this limited view. If further characterization is warranted, right upper quadrant ultrasound is recommended. These findings were discussed with Dr. Logan at 1:45 PM on . Dictated by: Cynthia Yin M.D. on 02/07/2017 at 13:37 Approved by: Cynthia Yin M.D. on 02/07/2017 at 13:46 12-lead ECG sinus with LBBB Assessment & Plan 1. NSTEMI - Pt remains on heparin drip - Discuss of cardiac cath is complicated. While it may offer relief from exertional angina, it may also prove fatal. - Given slightly improved condition pt would like to continue to consider, this will additionally afford time for his POA, grand-daughter to attend family meeting to discuss further. - Plan to continue on Heparin drip over night. He remains DNR/DNI. Will consider decision for intervention vs hospice support in the morning with aid of grand-daughter and director medical writing tomorrow before proceeding. - He will be made NPO after mid-night in anticipation. - Continue prn nitro, morphine for pain. 2. acute on chronic systolic heart failure - Currently stable hemodyanamically. MGMT as noted above. - Continue Lasix 3. CAD; - Present on admission - Continue current intervention. - aspirin (held with heparin), statin, beta vito. 4. Potential pe seen on cta of chest - on heparin infusion already for ACS. dispo: pending clinical improvement. cardiology. Pain Evaluation: Adequate Pain Control GI Prophylaxis: Not indicated VTE Prophylaxis: Other (on heparin infusion.) Resuscitation Status: DNR/DNI:Do Not Resuscitate/Intubate Time spent 45 minutes Neel Mendes DO February 08, 2017 13:53
--- NOTE | 2017-02-08 14:16 | DRSVH ---
PROCEDURE: US VENOUS LEG DUPLEX BILATERAL INDICATIONS: evaluate for dvt. TECHNIQUE: Real-time imaging, as well as color and pulse Doppler interrogation, were performed of the deep veins of both legs from the inguinal ligament to the popliteal fossa. COMPARISON: None. FINDINGS: The deep veins are normally compressible, and free of intraluminal thrombus. Color and pu lse Doppler demonstrate normal phasic intravascular flow. There is normal augmentation response to d istal compression maneuver. IMPRESSION: No evidence of bilateral lower extremity DVT. Dictated by: Dania Woods M.D. on 02/08/2017 at 14:14 Approved by: Dania Woods M.D. on 02/08/2017 at 14:14
--- NOTE | 2017-02-08 14:18 | DRSVH ---
PROCEDURE: US RENAL SONOGRAM INDICATIONS: acute renal failure. TECHNIQUE: Real-time scanning was performed of the kidneys and bladder, with image documentation. COMPARISON: None. FINDINGS: Left pleural effusion is present. Kidneys: Kidneys are normal in size. Right kidney measures 7.7 cm long; left kidney measures 9.6 cm long. Right renal cortical thickness is 0.8 cm; left renal cortical thickness is 1.0 cm. Renal cor tical echotexture is normal. No hydronephrosis or nephrolithiasis. No suspicious solid mass lesions . Exophytic cyst involves the inferior pole right kidney measuring 23 mm. Bladder: Pre-void bladder volume is 311 mL. Post-void residual is 143 mL. Pre-void images demonstr ate no intraluminal masses or stones. On pre-void images, no ureteral jets are noted with color Dopp ler interrogation. (Of note, ureteral jets may not be detectable in up to 25% of cases due to insuff icient differences in specific gravity between ureteral and bladder urine). Posterior urinary bladde r diverticulum is present measuring 20 mm. Miscellaneous: No free pelvic fluid. IMPRESSION: 1. No hydronephrosis. 2. Moderate post void residual within the urinary bladder. 3. Posterior urinary bladder diverticulum. Dictated by: Dania Woods M.D. on 02/08/2017 at 14:15 Approved by: Dania Woods M.D. on 02/08/2017 at 14:16
[2017-02-08] MEDS: Furosemide 10 mg/mL 2 mL Inj IVPUSH SCH (14:43)
[2017-02-09] VITALS (9 sets, daily range): BP systolic 82–143; BP diastolic 42–86; PULSE 68–98; RESP 16–20; O2SAT 95–99
--- NOTE | 2017-02-09 00:49 | PROG NOTE ---
[address] [address] PROGRESS NOTE PATIENT: ASIM GRIFFITH : 1930 MR#: [id number] ADMIT: 02/07/2017 JOB ID: [id number] DATE: 02/08/2017 CHIEF COMPLAINT: Shortness of breath. SUBJECTIVE: The patient has been confused according to his RN, Jamey. He is requiring a lot of reminders that he cannot get up and that he is a fall risk and at risk for bleeding. He has required multiple reminders that he is on blood thinner medication. He, unfortunately, pulled out his IV and it had to be restarted. I spoke with the patient's RN, Kimberly, who takes care of him at [facility], and she says that he is DNR/DNI according to the code status paperwork, and he requested limited interventions. She says that she has noted a functional decline in this patient in the past two months, and she says he has been ambulating around with a walker. She says that he has a supportive family. In fact, the patient seconds that. I really appreciate Dr. Mendes's expertise. He contacted the patient's power of defense attorney, Ariel, but she was not available today, so we plan a family meeting tomorrow before we discuss any invasive therapy for this patient. OBJECTIVE: Vital signs: Temperature 36.5, blood pressure 105/69, up to 127/85, pulse 52, up to 102 beats per minute. Satting 95-98% on 1-2 L nasal cannula. He has not had any events on telemetry. PHYSICAL EXAMINATION: A well-nourished man, no apparent distress. Eyes: No scleral icterus. Heart: Normal S1, S2. A 2/6 systolic ejection murmur at right upper sternal border. Lungs: With crackles at bases bilaterally. Abdomen: Soft. No lower extremity edema. There is a well-healed sternotomy scar present. CURRENT MEDICATIONS: 1. Lipitor 80 mg daily. 2. Xanax as needed. 3. Lasix 20 mg IV daily. 4. Cymbalta. 5. Heparin drip per ACS protocol. 6. Oxycodone as needed for pain. 7. Aspirin 81 mg daily. 8. Toprol-XL 25 mg daily. 9. Lisinopril 2.5 mg daily. ASSESSMENT AND PLAN: This is an 86-year-old man with severely reduced left ventricular systolic function. He has [id number] myocardial infarction. His EKG is uninterpretable due to old left bundle branch block. His ejection fraction was normal in 2014, and now ejection fraction is down to 25-30%. Prognosis is difficult and poor. 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 I recommend a family meeting to discuss goals of care. At this juncture, we really have two options. Option one is invasive therapy. I would recommend cardiac catheterization and possible stenting. My guess is that his graft failed, and I do not know if it is left internal mammary artery (BUTCHER) that failed or what exactly is going on. This would be a high risk procedure in this octogenarian with renal insufficiency. His last creatinine was 1.5. The patient is aware of risks, but he is interested in considering this possibility. SHUKRI Harris, who knows him quite well at work echoes this sentiment. Alternatively, my partner has already evaluated him a month ago and determined the patient was not a good candidate for invasive therapy, and it may be reasonable to just treat him medically. In terms of worsening cardiomyopathy, again under normal circumstances, we would discuss aggressive beta blockade and device upgrade to biventricular implantable cardioverter defibrillator (ICD), but again given his age and comorbid conditions, this may not be in his best interest. I think that this situation is complex because the patient is so pleasant and he has a full life at [facility], and yet I do not know how many years we can buy him with this procedure because his RN who knows him quite well says he has not really been particularly disabled by shortness of breath or chest pain, and has managed quite well following his hospitalization in January when his troponin-T peaked at 0.889. I also plan to enlist the support of his primary student ministry pastor, Dr. Ivey, who has known him quite well over the years, to help make decisions and delineate goals of care. Thank you very much for the opportunity to evaluate this delightful gentleman.
[2017-02-09] MEDS ORDERED: MeTOProlol XL 25 mg ER24 Tablet PO SCH (08:30)
[2017-02-09] MEDS ORDERED: Isosorbide Mononitrate 30 mg ER24 Tablet PO ONE (12:15)
[2017-02-09] MEDS: DULoxetine 30 mg DR Capsule PO SCH (12:19)
[2017-02-09] MEDS: ALPRAZolam 0.25 mg Tablet PO SCH ×2 (12:19→20:28)
[2017-02-09] MEDS: Furosemide 10 mg/mL 2 mL Inj IVPUSH SCH (12:19)
[2017-02-09] MEDS: MeTOProlol XL 25 mg ER24 Tablet PO SCH (12:20)
--- NOTE | 2017-02-09 12:22 | PCM.PNCARD ---
Subjective Date of service February 09, 2017 Chief Complaint Angina History of Present Illness This is a delightful 86 y/o male with extensive medical history as mentioned in Dr. Gallagher's note. Overnight, he has started to feel better. He denies any more chest pressure since early am. This sort of coincides with starting metoprolol. He has been on IV heparin for nearly 48 hours as well. He has been receiving ASA 81 mg once a day but no clopidogrel or daily nitrates up to this point. His EF looks a little weaker in comparison to prior echo study and agree that his is most likely secondary to his recent ischemic event. He looks comfortable in his bed and almost is lying in a flat supine position w/o difficulty breathing. His troponin has started to come down as well. Constitutional: Reports: Weakness, Denies: Fever, Sweats ENT: Denies: Ear Pain Cardiovascular: Reports: Chest Pain, Denies: Edema, Irregular Heart Rate Respiratory: Reports: SOB with Exertion, Denies: Cough Gastrointestinal: Denies: Blood in stool (red) Neurological: Reports: Other (reduced short term memory ), Denies: Change in LOC, Confusion, Dizziness Exam Vital Signs Vital Sign - Last Date Time Temp Pulse Resp B/P Pulse Ox O2 Delivery O2 Flow Rate FiO2 02/09/17 09:29 93 02/09/17 06:22 36.4 16 107/73 99 Nasal Cannula 2.00 Intake and Output 02/08/17 02/08/17 02/09/17 Cumulative From/Thru 15:00 23:00 07:00 02/07/17 09:07 - 02/09/17 06:22 Intake Total 360 ml 903 ml 377 ml 3376 ml Output Total 1300 ml 700 ml 3275 ml Balance 360 ml -397 ml -323 ml 101 ml Intake Oral 736 ml 200 ml 2672 ml IV Total 360 ml 167 ml 177 ml 704 ml Output Urine Total 1300 ml 700 ml 3275 ml # Voids 1 1 # Bowel Movements 1 1 2 General: Pleasant Cooperative Talkative Skin: Warm & dry to touch Head: Normocephalic Eye: EOMS intact Neck: JVP normal Chest: Clear auscultation w/o rales/wheeze Cardiac: Regular rhythm Systolic murmur (4/6 holosystolic murmur) Pulses: Pulses below femoral art diminished Abdomen: Abdomen unremarkable Abdomen soft Genitalia: Scrotum & testicles normal Extremities: Warm w/o deformities,erythema noted Neurological: Alert & oriented Psychological: Affect & interaction appropriate Reduced short term memory Lab and Diagnostics Labs CBC Test 02/08/17 03:20 White Blood Count 9.7th/mm3 (3.8-10.1) Red Blood Count 4.22mil/mm3 (4.40-5.80) Hemoglobin 12.8g/dL (13.8-17.2) Hematocrit 39.1% (41.0-50.0) Mean Corpuscular Volume 92.7fL (81-100) Mean Corpuscular Hemoglobin 30.3pg (27.0-35.0) Mean Corpuscular Hemoglobin Concent 32.7% (32.0-37.0) Red Cell Distribution Width 18.4% (12.3-15.4) Platelet Count 147bil/L (150-400) Neutrophils (%) (Auto) 62.4% (40-74) Lymphocytes (%) (Auto) 25.0% (14-46) Monocytes (%) (Auto) 10.6% (4-12) Eosinophils (%) (Auto) 1.1% (0-5) Basophils (%) (Auto) 0.6% (0-3) CMP Test 02/07/17 09:28 02/08/17 03:20 02/08/17 09:40 Pro-B-Type Natriuretic Peptide 27608mr/mL Sodium Level 139mEq/L Potassium Level 4.8mEq/L Chloride Level 99mEq/L Carbon Dioxide Level 24mmol/L Blood Urea Nitrogen 55mg/dL Creatinine 1.49mg/dL Estimat Glomerular Filtration Rate 47mL/min Glucose Level 121mg/dL Calcium Level 9.4mg/dL Phosphorus Level 4.5mg/dL Magnesium Level 2.2mg/dL Total Bilirubin 1.1mg/dL Aspartate Amino Transf (AST/SGOT) 110U/L Alanine Aminotransferase (ALT/SGPT) 97U/L Alkaline Phosphatase 75U/L Total Protein 6.2g/dL Albumin 4.2g/dL Triglycerides Level 80mg/dL Cholesterol Level 188mg/dL LDL Cholesterol, Calculated 112.000mg/dL VLDL Cholesterol 16.000mg/dL HDL Cholesterol 60mg/dL Cholesterol/HDL Ratio 3.13 Thyroid Stimulating Hormone (TSH) 1.680uIU/mL Troponin T 1.86ug/L Result Diagram: 02/08/1731902/08/17319 Assessment & Plan Problems: (1) Acute on chronic left systolic heart failure Plan: Resolved. Euvolemic on examination. EF 25%. NYHA class IIIb. Currently on IV Lasix 20 mg daily. Probably can switch this to oral Lasix 40 mg once a day. I have taken the liberty of increasing his metoprolol XL to 25 mg BID for aggressive anti-anginal medical therapy. I would continue with Lisinopril 2.5 mg once a day for now, but if his BP remains stable after increasing his metoprolol then consider increasing Lisinopril to 5-10 mg once a day. Due to his multiple medical issues and advanced age, I believe that he should defer heart catheterization for now and try to optimize his meds first. He already has an appointment with Dr. Ivey and he can reassess him and decide if heart catheterization is still needed. I discussed with the family ( granddaughter who is POA) about reasons to pursue with more conservative approach for now and try to be more aggressive with his meds. Status: Acute ICD Code: I50.23 (2) Non-ST elevation myocardial infarction (NSTEMI) Plan: Probably has developed an acute closure of a graft but I believe that we should aggressively titrate his meds for now. I have added Clopidogrel and his IV heparin maybe stopped tomorrow morning. I have increased his beta blockers and started him on Imdur to see if his CP continues to remain absent. I will like for the patient to start walking around this afternoon with assistance to see if his CP is recurrent. I would only consider heart catheterization in this gentleman after we have maximized his medical therapy for his HF and angina. One may consider Ranexa if his BP does not tolerate the more traditional anti-anginal meds. Dr. Ivey can reassess his symptoms as an outpatient but I will like to keep him here for 1-2 more nights to make sure he can tolerate some of the changes I made with his cardiovascular meds. Onset Date: 01/12/2015 Status: Acute ICD Code: I21.4 (3) Lung cancer Status: Chronic ICD Code: C34.90 (4) Complete heart block, transient Onset Date: 04/01/2015 Status: Resolved ICD Code: I44.2 Pain Evaluation: Adequate Pain Control GI Prophylaxis: Not indicated VTE Prophylaxis: Other (on heparin infusion.) Resuscitation Status: DNR/DNI:Do Not Resuscitate/Intubate Time spent 1 hour copies to: Andre Ivey MD, Oscar J MD February 09, 2017 12:22
--- NOTE | 2017-02-09 16:09 | PCM.PNMED ---
Subjective Date of Service February 09, 2017 Subjective Patient was seen and examined at bedside today. Patient denies any shortness of breath, nausea, vomiting, diarrhea. Patient states that his chest pain is improved. Overnight events: None Exam Vital Signs Vital Sign - Last Date Time Temp Pulse Resp B/P Pulse Ox O2 Delivery O2 Flow Rate FiO2 02/09/17 09:29 93 02/09/17 08:00 Supplement Oxygen 02/09/17 08:00 36.5 143/81 98 2.00 02/09/17 06:22 16 Intake and Output 02/08/17 02/08/17 02/09/17 Cumulative From/Thru 15:00 23:00 07:00 02/07/17 09:07 - 02/09/17 06:22 Intake Total 360 ml 903 ml 377 ml 3376 ml Output Total 1300 ml 700 ml 3275 ml Balance 360 ml -397 ml -323 ml 101 ml Intake Oral 736 ml 200 ml 2672 ml IV Total 360 ml 167 ml 177 ml 704 ml Output Urine Total 1300 ml 700 ml 3275 ml # Voids 1 1 # Bowel Movements 1 1 2 Exam Physical Exam: GEN: Patient was awake, alert, responding appropriately to questions HEENT: Pupils equal round and reactive to light, extraocular eye muscles intact , Neck soft supple, trachea midline, nomocephalic/atraumatic CV: +S1/S2, regular rate and rhythm, harsh systolic murmurs auscultated Respiratory: CTAB, no wheezes, rales, rhonchi GI: +bowel sounds x4, soft, compressible, nontender to palpation EXT: no clubbing, cyanosis, edema Neuro: Cranial nerves II-XII grossly intact Psych: mood and affect were appropriate IVs and Medications Medications Reviewed: Medications were reviewed in detail Lab and Diagnostics Result Diagram: 02/08/17 0320 02/08/17 0320 X-Rays, CTs and MRIs Date of Service: 02/07/17 0841 PROCEDURE: X-RAY CHEST ONE VIEW, PORTABLE ([id number]) INDICATIONS: CHEST PAIN TECHNIQUE: One view of the chest was acquired. COMPARISON: [facility], CT, CT ANGIO CHEST PE, 01/05/2017, 18:10. FINDINGS: Surgical changes and devices: Dual-lead cardiac pacer is unchanged. Patient is status post median sternotomy and CABG. The superior sternotomy wire is fractured as before. There is an aortic valve replacement. Lungs and pleura: Right pleural calcification is redemonstrated. There is diffuse interstitial prominence. No focal airspace opacities. No pleural effusion or pneumothorax. The Mediastinum: Mediastinal contours appear normal. Heart size is enlarged, as before. Bones and chest wall: No suspicious bony lesions. Overlying soft tissues appear unremarkable. IMPRESSION: Cardiomegaly and interstitial prominence suggesting fluid overload. Dictated by: Cynthia Yin M.D. on 02/07/2017 at 9:48 Approved by: Cynthia Yin M.D. on 02/07/2017 at 9:50 Date of Service: 02/07/17 1127 PROCEDURE: CT ANGIO CHEST PULMONARY EMBOLISM ([id number]) INDICATIONS: elevated d dimer, tachycardia, sob, lung ca TECHNIQUE: After the administration of intravenous contrast, 2 mm thick sections acquired from the pulmonary apices to the posterior costophrenic angles. 3-dimensional maximum intensity projection (MIP) coronal and sagittal reformats were then acquired through the thorax. For radiation dose reduction, the following was used: automated exposure control, adjustment of mA and/or kV according to patient size. COMPARISON: [facility], CT, CT ANGIO CHEST PE, 01/05/2017, 18:10. FINDINGS: Image quality: Excellent. Pulmonary arteries: Although there is no discrete filling defect present, there is poor opacification of the subsegmental branches of the right lower lobe suspicious for pulmonary embolus. The pulmonary arteries are otherwise well opacified without intraluminal filling defects. Lungs and pleura: There is a moderate right and a small left low density oral effusion. There is diffuse interlobular septal thickening and groundglass opacity throughout the lung suggestive of pulmonary edema. There is atelectasis at the bilateral lung bases. Mediastinum: Heart size is markedly enlarged, without pericardial effusion. No mediastinal or hilar adenopathy. Patient is status post aortic valve replacement. Cardiac pacer wires and prior CABG are noted. Thoracic aorta is normal in caliber and enhancement. Esophagus is normal in caliber, without hiatal hernia. Bones and chest wall: No suspicious bony lesions. Ribs and thoracic spine appear intact throughout. Thyroid gland is unremarkable. No axillary or supraclavicular adenopathy. Abdomen: There is questionable gallbladder wall thickening versus fluid around the contracted gallbladder within the gallbladder fossa which is poorly characterized (series 4, image 137). Visualized upper abdominal solid organs appear otherwise grossly normal in the early arterial phase of enhancement. IMPRESSION: 1. Poor opacification of the subsegmental branches of the right lower lobe suspicious for pulmonary embolus. However, no discrete filling defect is visualized to definitely confirm subsegmental emboli. The pulmonary arteries otherwise opacifies expected. 2. Bilateral low density pleural effusions and compressive atelectasis. 3. Cardiomegaly and pulmonary edema, suggesting congestive failure. 4. Questionable gallbladder wall thickening versus pericholecystic fluid which is poorly characterized on this limited view. If further characterization is warranted, right upper quadrant ultrasound is recommended. These findings were discussed with Dr. Logan at 1:45 PM on . Dictated by: Cynthia Yin M.D. on 02/07/2017 at 13:37 Approved by: Cynthia Yin M.D. on 02/07/2017 at 13:46 12-lead ECG sinus with LBBB Assessment & Plan 86-year-old male presents with a NSTEMI NSTEMI -Continue heparin drip until tomorrow morning -Discussed with Dr. Mai (cardiology) and feels that the patient is not a candidate for cardiac cath but would prefer to maximize the patient with medical management first before doing a cardiac cath. -Add Plavix 75 mg daily (as per recommended by cardiology) -If the patient's blood pressure does not tolerate medical management consider adding Ranexa as an alternative Acute on chronic systolic heart failure -EF 25% NYHA class IIIB -Oral Lasix 40 mg daily -Increased metoprolol XL to 25 mg twice a day -Continue lisinopril 2.5 mg daily we will consider increasing to 5-10 mg daily if blood pressure remained stable as recommended by cardiology -Continue to monitor CAD - Present on admission -Restart aspirin 81 mg daily -Restart atorvastatin 80 mg by mouth daily at bedtime Potential PE seen on CTA of chest - Currently anticoagulated with heparin Code Status: DNR/DNI DVT prophylaxis: Continue heparin Dispo: The patient is currently progressing well. The patient will continue heparin drip for one more night as per recommendation by cardiology. The patient will most likely be ready for discharge potentially in the next 1-2 days. We will continue to optimize the patient's medication based on how well his blood pressure tolerates his current medications. GI Prophylaxis: Not indicated VTE Prophylaxis: Other (on heparin infusion.) Resuscitation Status: DNR/DNI:Do Not Resuscitate/Intubate Steph Phillips DO February 09, 2017 16:09
[2017-02-10] VITALS (18 sets, daily range): BP systolic 84–111; BP diastolic 49–68; PULSE 60–80; RESP 16–20; O2SAT 92–98
[2017-02-10] MEDS: Heparin 25K Unit/500mL 0.45 NS 25,000 UNIT in IV Premix 1 EACH IV SCH (01:32)
[2017-02-10 07:07] LABS: Mean Corpuscular Hemoglobin 30.2 pg (27.0-35.0); Mean Corpuscular Volume 92.8 fL (81-100)
[2017-02-10 08:25] LABS: INR 1.16 ratio
[2017-02-10] MEDS: DULoxetine 30 mg DR Capsule PO SCH (08:58)
[2017-02-10] MEDS: ALPRAZolam 0.25 mg Tablet PO SCH ×2 (08:58→20:18)
[2017-02-10] MEDS: MeTOProlol XL 25 mg ER24 Tablet PO SCH ×2 (08:59→18:10)
[2017-02-10] MEDS: Isosorbide Mononitrate 60 mg ER24 Tablet PO SCH (11:02)
--- NOTE | 2017-02-10 13:53 | PCM.PNMED ---
Subjective Date of Service February 10, 2017 Subjective Patient was seen and examined at bedside today. Patient denies any chest pain, shortness of breath, nausea, vomiting, diarrhea. Overnight events: None Exam Vital Signs Vital Sign - Last Date Time Temp Pulse Resp B/P Pulse Ox O2 Delivery O2 Flow Rate FiO2 02/10/17 11:00 69 110/68 02/10/17 07:50 36.4 16 97 Nasal Cannula 2.00 Intake and Output 02/09/17 02/09/17 02/10/17 Cumulative From/Thru 15:00 23:00 07:00 02/07/17 09:07 - 02/10/17 06:22 Intake Total 1110 ml 622 ml 5108 ml Output Total 925 ml 700 ml 4900 ml Balance 185 ml -78 ml 208 ml Intake Oral 600 ml 400 ml 3672 ml IV Total 510 ml 222 ml 1436 ml Output Urine Total 925 ml 700 ml 4900 ml # Voids 1 # Bowel Movements 1 3 Exam Physical Exam: GEN: Patient was awake, alert, responding appropriately to questions HEENT: Pupils equal round and reactive to light, extraocular eye muscles intact , Neck soft supple, trachea midline, nomocephalic/atraumatic CV: +S1/S2, regular rate and rhythm, positive blowing systolic murmur murmurs auscultated Respiratory: CTAB, no wheezes, rales, rhonchi GI: +bowel sounds x4, soft, compressible, nontender to palpation EXT: no clubbing, cyanosis, edema Neuro: Cranial nerves II-XII grossly intact Psych: mood and affect were appropriate IVs and Medications Medications Reviewed: Medications were reviewed in detail Lab and Diagnostics Result Diagram: 02/10/1710 02/10/17 0610 X-Rays, CTs and MRIs Date of Service: 02/07/17 0841 PROCEDURE: X-RAY CHEST ONE VIEW, PORTABLE ([id number]) INDICATIONS: CHEST PAIN TECHNIQUE: One view of the chest was acquired. COMPARISON: [facility], CT, CT ANGIO CHEST PE, 01/05/2017, 18:10. FINDINGS: Surgical changes and devices: Dual-lead cardiac pacer is unchanged. Patient is status post median sternotomy and CABG. The superior sternotomy wire is fractured as before. There is an aortic valve replacement. Lungs and pleura: Right pleural calcification is redemonstrated. There is diffuse interstitial prominence. No focal airspace opacities. No pleural effusion or pneumothorax. The Mediastinum: Mediastinal contours appear normal. Heart size is enlarged, as before. Bones and chest wall: No suspicious bony lesions. Overlying soft tissues appear unremarkable. IMPRESSION: Cardiomegaly and interstitial prominence suggesting fluid overload. Dictated by: Cynthia Yin M.D. on 02/07/2017 at 9:48 Approved by: Cynthia Yin M.D. on 02/07/2017 at 9:50 Date of Service: 02/07/17 1127 PROCEDURE: CT ANGIO CHEST PULMONARY EMBOLISM ([id number]) INDICATIONS: elevated d dimer, tachycardia, sob, lung ca TECHNIQUE: After the administration of intravenous contrast, 2 mm thick sections acquired from the pulmonary apices to the posterior costophrenic angles. 3-dimensional maximum intensity projection (MIP) coronal and sagittal reformats were then acquired through the thorax. For radiation dose reduction, the following was used: automated exposure control, adjustment of mA and/or kV according to patient size. COMPARISON: [facility], CT, CT ANGIO CHEST PE, 01/05/2017, 18:10. FINDINGS: Image quality: Excellent. Pulmonary arteries: Although there is no discrete filling defect present, there is poor opacification of the subsegmental branches of the right lower lobe suspicious for pulmonary embolus. The pulmonary arteries are otherwise well opacified without intraluminal filling defects. Lungs and pleura: There is a moderate right and a small left low density oral effusion. There is diffuse interlobular septal thickening and groundglass opacity throughout the lung suggestive of pulmonary edema. There is atelectasis at the bilateral lung bases. Mediastinum: Heart size is markedly enlarged, without pericardial effusion. No mediastinal or hilar adenopathy. Patient is status post aortic valve replacement. Cardiac pacer wires and prior CABG are noted. Thoracic aorta is normal in caliber and enhancement. Esophagus is normal in caliber, without hiatal hernia. Bones and chest wall: No suspicious bony lesions. Ribs and thoracic spine appear intact throughout. Thyroid gland is unremarkable. No axillary or supraclavicular adenopathy. Abdomen: There is questionable gallbladder wall thickening versus fluid around the contracted gallbladder within the gallbladder fossa which is poorly characterized (series 4, image 137). Visualized upper abdominal solid organs appear otherwise grossly normal in the early arterial phase of enhancement. IMPRESSION: 1. Poor opacification of the subsegmental branches of the right lower lobe suspicious for pulmonary embolus. However, no discrete filling defect is visualized to definitely confirm subsegmental emboli. The pulmonary arteries otherwise opacifies expected. 2. Bilateral low density pleural effusions and compressive atelectasis. 3. Cardiomegaly and pulmonary edema, suggesting congestive failure. 4. Questionable gallbladder wall thickening versus pericholecystic fluid which is poorly characterized on this limited view. If further characterization is warranted, right upper quadrant ultrasound is recommended. These findings were discussed with Dr. Logan at 1:45 PM on . Dictated by: Cynthia Yin M.D. on 02/07/2017 at 13:37 Approved by: Cynthia Yin M.D. on 02/07/2017 at 13:46 12-lead ECG sinus with LBBB Assessment & Plan 86-year-old male presents with a NSTEMI NSTEMI -Start patient on warfarin today discontinue heparin once warfarin was started -Patient is not a candidate for cardiac catheterization continue to maximize the patient with medical management first before doing a cardiac cath. -Continue Plavix 75 mg daily (as per recommended by cardiology) -If the patient's blood pressure does not tolerate medical management consider adding Ranexa as an alternative Acute on chronic systolic heart failure -EF 25% NYHA class IIIB -Oral Lasix 40 mg daily -Continue Imdur as recommended by cardiology -Continue metoprolol XL to 25 mg twice a day -Continue lisinopril 2.5 mg daily we will consider increasing to 5-10 mg daily if blood pressure remained stable as recommended by cardiology -Continue to monitor CAD - Present on admission -Restart aspirin 81 mg daily -Restart atorvastatin 80 mg by mouth daily at bedtime Potential PE seen on CTA of chest - Currently anticoagulated with heparin Code Status: DNR/DNI DVT prophylaxis: Continue heparin Dispo: The patient is currently progressing well however the patient's blood pressure seems to be dropping considerably. The patient no longer has any chest pain and may be optimized on the new medications that he has started. If the patient's blood pressure remained stable we will consider discharging patient tomorrow. GI Prophylaxis: Not indicated VTE Prophylaxis: Other (on heparin infusion.) Resuscitation Status: DNR/DNI:Do Not Resuscitate/Intubate Steph Phillips DO February 10, 2017 13:53
--- NOTE | 2017-02-10 18:51 | PCM.CONPHA ---
Subjective Date of Service: February 10, 2017 Requesting Provider: Steph Phillips DO Angina Reason for Pharmacy Consult: Anticoagulation Management Objective Vital Signs Date Time Temp Pulse Resp B/P Pulse Ox O2 Delivery O2 Flow Rate FiO2 02/10/17 11:00 69 110/68 02/10/17 10:55 96/64 02/10/17 10:55 70 98/63 02/10/17 10:25 68 02/10/17 07:50 36.4 76 16 111/67 97 Nasal Cannula 2.00 02/10/17 07:50 Supplement Oxygen 02/10/17 06:22 36.4 67 16 104/63 98 Nasal Cannula 2.00 02/10/17 02:22 36.4 72 18 90/54 92 Nasal Cannula 2.00 02/10/17 00:33 Supplement Oxygen 02/09/17 22:22 36.4 69 18 90/46 95 Nasal Cannula 2.00 02/09/17 20:00 68 Intake and Output 02/08/17 02/09/17 02/10/17 00:00 00:00 00:00 Intake Total 636 ml 2363 ml 1487 ml Output Total 375 ml 2200 ml 1625 ml Balance 261 ml 163 ml -138 ml Weight (Kilograms): 68.400 Height (Feet): 5 Height (Inches): 6.00 Test 02/07/17 09:28 02/08/17 03:20 02/08/17 09:40 02/10/17 06:10 D-Dimer 1.59mg/L FEU (<0.50) Pro-B-Type Natriuretic Peptide 31318me/mL (0-486) Neutrophils (%) (Auto) 62.4% (40-74) Lymphocytes (%) (Auto) 25.0% (14-46) Monocytes (%) (Auto) 10.6% (4-12) Eosinophils (%) (Auto) 1.1% (0-5) Basophils (%) (Auto) 0.6% (0-3) Hemoglobin A1c 5.8% (4.8-5.6) Phosphorus Level 4.5mg/dL (2.5-4.9) Magnesium Level 2.2mg/dL (1.6-2.6) Triglycerides Level 80mg/dL (0-149) Cholesterol Level 188mg/dL (100-199) LDL Cholesterol, Calculated 112.000mg/dL (0-99) VLDL Cholesterol 16.000mg/dL HDL Cholesterol 60mg/dL (>39) Cholesterol/HDL Ratio 3.13 (0.0-4.4) Thyroid Stimulating Hormone (TSH) 1.680uIU/mL (0.450-4.500) Troponin T 1.86ug/L (0.0-0.011) White Blood Count 7.2th/mm3 (3.8-10.1) Red Blood Count 3.77mil/mm3 (4.40-5.80) Hemoglobin 11.4g/dL (13.8-17.2) Hematocrit 35.0% (41.0-50.0) Mean Corpuscular Volume 92.8fL (81-100) Mean Corpuscular Hemoglobin 30.2pg (27.0-35.0) Mean Corpuscular Hemoglobin Concent 32.6% (32.0-37.0) Red Cell Distribution Width 17.7% (12.3-15.4) Platelet Count 145bil/L (150-400) Prothrombin Time 12.4sec (8.1-12.5) Prothromb Time International Ratio 1.16ratio Sodium Level 136mEq/L (134-144) Potassium Level 4.6mEq/L (3.5-5.2) Chloride Level 99mEq/L (97-108) Carbon Dioxide Level 26mmol/L (18-29) Blood Urea Nitrogen 48mg/dL (8-27) Creatinine 1.25mg/dL (0.76-1.27) Estimat Glomerular Filtration Rate 58mL/min (>59) Glucose Level 115mg/dL (60-99) Calcium Level 8.8mg/dL (8.5-10.1) Total Bilirubin 0.8mg/dL (0.0-1.2) Aspartate Amino Transf (AST/SGOT) 44U/L (0-50) Alanine Aminotransferase (ALT/SGPT) 58U/L (0-44) Alkaline Phosphatase 85U/L (25-160) Total Protein 5.3g/dL (6.4-8.4) Albumin 3.2g/dL (3.4-5.0) Test 02/10/17 12:10 Activated Partial Thromboplast Time 94.4sec (22.8-33.0) Assessment/Plan Assessment/Plan Warfarin per Rx NSTEMI; Goal 2- 3, Today's INR 1.16 Give 2.5mg today Daily INR ordered Ritchie Reddy PharmD February 10, 2017 18:51
[2017-02-11] VITALS (9 sets, daily range): BP systolic 95–116; BP diastolic 59–67; PULSE 67–87; RESP 20; O2SAT 94–98
[2017-02-11 06:42] LABS: INR 1.01 ratio
[2017-02-11] MEDS: Isosorbide Mononitrate 60 mg ER24 Tablet PO SCH (07:45)
[2017-02-11 08:28] LABS: Mean Corpuscular Volume 92.9 fL (81-100)
[2017-02-11] MEDS: ALPRAZolam 0.25 mg Tablet PO SCH ×2 (08:58→20:55)
[2017-02-11] MEDS: DULoxetine 30 mg DR Capsule PO SCH (08:58)
[2017-02-11] MEDS: MeTOProlol XL 25 mg ER24 Tablet PO SCH ×2 (08:58→17:21)
--- NOTE | 2017-02-11 14:27 | PCM.PNMED ---
Subjective Date of Service February 11, 2017 Subjective Patient was seen and examined at bedside today. Patient denies any chest pain, shortness of breath, nausea, vomiting, diarrhea. Overnight events:None known Exam Vital Signs Vital Sign - Last Date Time Temp Pulse Resp B/P Pulse Ox O2 Delivery O2 Flow Rate FiO2 02/11/17 11:10 87 02/11/17 10:06 99/61 02/11/17 03:24 36.6 20 96 Room Air 02/10/17 07:50 2.00 Intake and Output 02/10/17 02/10/17 02/11/17 Cumulative From/Thru 15:00 23:00 07:00 02/07/17 09:07 - 02/11/17 06:41 Intake Total 1511 ml 400 ml 7019 ml Output Total 1600 ml 800 ml 7300 ml Balance -89 ml -400 ml -281 ml Intake Oral 1080 ml 400 ml 5152 ml IV Total 431 ml 1867 ml Output Urine Total 1600 ml 800 ml 7300 ml # Voids 1 # Bowel Movements 1 4 Exam Physical Exam: GEN: Patient was awake, alert, responding appropriately to questions HEENT: Pupils equal round and reactive to light, extraocular eye muscles intact , Neck soft supple, trachea midline, nomocephalic/atraumatic CV: +S1/S2, regular rate and rhythm, harsh systolic murmur auscultated Respiratory: CTAB, no wheezes, rales, rhonchi GI: +bowel sounds x4, soft, compressible, nontender to palpation EXT: no clubbing, cyanosis, edema Neuro: Cranial nerves II-XII grossly intact Psych: mood and affect were appropriate IVs and Medications Medications Reviewed: Medications were reviewed in detail Lab and Diagnostics Result Diagram: 02/11/1781602/11/1717 X-Rays, CTs and MRIs Date of Service: 02/07/17 0841 PROCEDURE: X-RAY CHEST ONE VIEW, PORTABLE ([id number]) INDICATIONS: CHEST PAIN TECHNIQUE: One view of the chest was acquired. COMPARISON: [facility], CT, CT ANGIO CHEST PE, 01/05/2017, 18:10. FINDINGS: Surgical changes and devices: Dual-lead cardiac pacer is unchanged. Patient is status post median sternotomy and CABG. The superior sternotomy wire is fractured as before. There is an aortic valve replacement. Lungs and pleura: Right pleural calcification is redemonstrated. There is diffuse interstitial prominence. No focal airspace opacities. No pleural effusion or pneumothorax. The Mediastinum: Mediastinal contours appear normal. Heart size is enlarged, as before. Bones and chest wall: No suspicious bony lesions. Overlying soft tissues appear unremarkable. IMPRESSION: Cardiomegaly and interstitial prominence suggesting fluid overload. Dictated by: Cynthia Yin M.D. on 02/07/2017 at 9:48 Approved by: Cynthia Yin M.D. on 02/07/2017 at 9:50 Date of Service: 02/07/17 1127 PROCEDURE: CT ANGIO CHEST PULMONARY EMBOLISM ([id number]) INDICATIONS: elevated d dimer, tachycardia, sob, lung ca TECHNIQUE: After the administration of intravenous contrast, 2 mm thick sections acquired from the pulmonary apices to the posterior costophrenic angles. 3-dimensional maximum intensity projection (MIP) coronal and sagittal reformats were then acquired through the thorax. For radiation dose reduction, the following was used: automated exposure control, adjustment of mA and/or kV according to patient size. COMPARISON: [facility], CT, CT ANGIO CHEST PE, 01/05/2017, 18:10. FINDINGS: Image quality: Excellent. Pulmonary arteries: Although there is no discrete filling defect present, there is poor opacification of the subsegmental branches of the right lower lobe suspicious for pulmonary embolus. The pulmonary arteries are otherwise well opacified without intraluminal filling defects. Lungs and pleura: There is a moderate right and a small left low density oral effusion. There is diffuse interlobular septal thickening and groundglass opacity throughout the lung suggestive of pulmonary edema. There is atelectasis at the bilateral lung bases. Mediastinum: Heart size is markedly enlarged, without pericardial effusion. No mediastinal or hilar adenopathy. Patient is status post aortic valve replacement. Cardiac pacer wires and prior CABG are noted. Thoracic aorta is normal in caliber and enhancement. Esophagus is normal in caliber, without hiatal hernia. Bones and chest wall: No suspicious bony lesions. Ribs and thoracic spine appear intact throughout. Thyroid gland is unremarkable. No axillary or supraclavicular adenopathy. Abdomen: There is questionable gallbladder wall thickening versus fluid around the contracted gallbladder within the gallbladder fossa which is poorly characterized (series 4, image 137). Visualized upper abdominal solid organs appear otherwise grossly normal in the early arterial phase of enhancement. IMPRESSION: 1. Poor opacification of the subsegmental branches of the right lower lobe suspicious for pulmonary embolus. However, no discrete filling defect is visualized to definitely confirm subsegmental emboli. The pulmonary arteries otherwise opacifies expected. 2. Bilateral low density pleural effusions and compressive atelectasis. 3. Cardiomegaly and pulmonary edema, suggesting congestive failure. 4. Questionable gallbladder wall thickening versus pericholecystic fluid which is poorly characterized on this limited view. If further characterization is warranted, right upper quadrant ultrasound is recommended. These findings were discussed with Dr. Logan at 1:45 PM on . Dictated by: Cynthia Yin M.D. on 02/07/2017 at 13:37 Approved by: Cynthia Yin M.D. on 02/07/2017 at 13:46 12-lead ECG sinus with LBBB Assessment & Plan 86-year-old male presents with a NSTEMI NSTEMI -Continue warfarin -Patient is not a candidate for cardiac catheterization continue to maximize the patient with medical management first before doing a cardiac cath. -Continue Plavix 75 mg daily (as per recommended by cardiology) -Continue Imdur 60mg QD -Continue metoprolol 25 mg by mouth twice a day -Hold lisinopril 2.5 mg. At this time the patient's blood pressure is not able to you know all of the medications. We will continue the Imdur and metoprolol and see if this continues to resolve the patient's chest pain. -PT and patient should eat all of his meals in a chair -Will consider adding Ranexa if the patient's BP is still unable to tolerate the new medication changes. Acute on chronic systolic heart failure -EF 25% NYHA class IIIB -Oral Lasix 40 mg daily -Continue Imdur as recommended by cardiology -Continue metoprolol XL to 25 mg twice a day -Continue lisinopril 2.5 mg daily we will consider increasing to 5-10 mg daily if blood pressure remained stable as recommended by cardiology -Continue to monitor CAD - Present on admission -Restart aspirin 81 mg daily -Restart atorvastatin 80 mg by mouth daily at bedtime Potential PE seen on CTA of chest - Currently anticoagulated with heparin Code Status: DNR/DNI DVT prophylaxis: Continue heparin Dispo: The patient is currently progressing well however the patient's blood pressure seems to be dropping considerably some medication adjustments have been made. If the patient's blood pressure remained stable we will consider discharging patient tomorrow. GI Prophylaxis: Not indicated VTE Prophylaxis: Other (on heparin infusion.) Resuscitation Status: DNR/DNI:Do Not Resuscitate/Intubate Steph Phillips DO February 11, 2017 14:27
[2017-02-11] MEDS ORDERED: 0.9% Sodium Chloride 1,000 ML IV SCH (19:20)
[2017-02-12] VITALS (8 sets, daily range): BP systolic 94–119; BP diastolic 57–80; PULSE 68–90; RESP 15–18; O2SAT 95–100
[2017-02-12 07:05] LABS: INR 1.04 ratio
[2017-02-12] MEDS: MeTOProlol XL 25 mg ER24 Tablet PO SCH (07:39)
[2017-02-12] MEDS: ALPRAZolam 0.25 mg Tablet PO SCH (07:39)
[2017-02-12] MEDS: DULoxetine 30 mg DR Capsule PO SCH (07:40)
[2017-02-12] MEDS: Isosorbide Mononitrate 60 mg ER24 Tablet PO SCH (07:41)
--- NOTE | 2017-02-12 09:51 | DRSVH ---
PROCEDURE: X-RAY CHEST ONE VIEW, PORTABLE ([id number]) INDICATIONS: SOB TECHNIQUE: One view of the chest was acquired. COMPARISON: [facility], CT, CT ANGIO CHEST PE, 02/07/2017, 13:13. [facility] , CR, XR CHEST 1VW (PORTABLE), 02/07/2017, 9:13. FINDINGS: Surgical changes and devices: Post median sternotomy and there is fracture of the most proximal calero al wire. Stable position of left cardiac pacer. Prior valvular replacement. Lungs and pleura: Granuloma within the right lower lobe redemonstrated. Interval development of biba silar airspace opacities. Small effusions. No pneumothorax. Mediastinum: Mediastinal contours appear normal. Heart size is normal. Bones and chest wall: No suspicious bony lesions. Overlying soft tissues appear unremarkable. IMPRESSION: 1. Bibasilar atelectasis versus aspiration or pneumonia. Correlate clinically. 2. Small pleural effusions. Dictated by: Jh Watkins RR Interpreted: Nigel Hewitt MD on 02/12/2017 at 9:49 Transcribed by: JESSICA on 02/12/2017 at 9:50 Approved by: Tomas Hewitt M.D. on 02/12/2017 at 10:50
[2017-02-12] MEDS ORDERED: ATOR40TA69 PO (11:50)
[2017-02-12] MEDS ORDERED: CLOP75TA28 PO (11:50)
[2017-02-12] MEDS ORDERED: ISOS60TA2 PO (11:50)
[2017-02-12] MEDS ORDERED: METO25TA99 PO (11:50)
--- NOTE | 2017-02-12 11:56 | PCM.DIMED ---
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
[2017-02-12] MEDS ORDERED: WARF3TAB7 PO (11:57)
--- NOTE | 2017-02-12 11:58 | PCM.DC.MED ---
Discharge Summary Date of Service February 12, 2017 Dates of Hospitalization Date of Hospital Admission February 07, 2017 at 15:02 Date of Discharge: February 12, 2017 Providers: Admitting Physician: Ramiro Arzola MD Primary Care Physician: Allie Haq Attending Physician: Ramiro Arzola MD Diagnosis at Time of Discharge Diagnosis at Time of Discharge N STEMI Acute on chronic systolic heart failure CAD Probable PE Procedures XRay, CTs & MRIs Date of Service: 02/07/17 0841 PROCEDURE: X-RAY CHEST ONE VIEW, PORTABLE ([id number]) INDICATIONS: CHEST PAIN TECHNIQUE: One view of the chest was acquired. COMPARISON: [facility], CT, CT ANGIO CHEST PE, 01/05/2017, 18:10. FINDINGS: Surgical changes and devices: Dual-lead cardiac pacer is unchanged. Patient is status post median sternotomy and CABG. The superior sternotomy wire is fractured as before. There is an aortic valve replacement. Lungs and pleura: Right pleural calcification is redemonstrated. There is diffuse interstitial prominence. No focal airspace opacities. No pleural effusion or pneumothorax. The Mediastinum: Mediastinal contours appear normal. Heart size is enlarged, as before. Bones and chest wall: No suspicious bony lesions. Overlying soft tissues appear unremarkable. IMPRESSION: Cardiomegaly and interstitial prominence suggesting fluid overload. Dictated by: Cynthia Yin M.D. on 02/07/2017 at 9:48 Approved by: Cynthia Yin M.D. on 02/07/2017 at 9:50 Date of Service: 02/07/17 1127 PROCEDURE: CT ANGIO CHEST PULMONARY EMBOLISM ([id number]) INDICATIONS: elevated d dimer, tachycardia, sob, lung ca TECHNIQUE: After the administration of intravenous contrast, 2 mm thick sections acquired from the pulmonary apices to the posterior costophrenic angles. 3-dimensional maximum intensity projection (MIP) coronal and sagittal reformats were then acquired through the thorax. For radiation dose reduction, the following was used: automated exposure control, adjustment of mA and/or kV according to patient size. COMPARISON: [facility], CT, CT ANGIO CHEST PE, 01/05/2017, 18:10. FINDINGS: Image quality: Excellent. Pulmonary arteries: Although there is no discrete filling defect present, there is poor opacification of the subsegmental branches of the right lower lobe suspicious for pulmonary embolus. The pulmonary arteries are otherwise well opacified without intraluminal filling defects. Lungs and pleura: There is a moderate right and a small left low density oral effusion. There is diffuse interlobular septal thickening and groundglass opacity throughout the lung suggestive of pulmonary edema. There is atelectasis at the bilateral lung bases. Mediastinum: Heart size is markedly enlarged, without pericardial effusion. No mediastinal or hilar adenopathy. Patient is status post aortic valve replacement. Cardiac pacer wires and prior CABG are noted. Thoracic aorta is normal in caliber and enhancement. Esophagus is normal in caliber, without hiatal hernia. Bones and chest wall: No suspicious bony lesions. Ribs and thoracic spine appear intact throughout. Thyroid gland is unremarkable. No axillary or supraclavicular adenopathy. Abdomen: There is questionable gallbladder wall thickening versus fluid around the contracted gallbladder within the gallbladder fossa which is poorly characterized (series 4, image 137). Visualized upper abdominal solid organs appear otherwise grossly normal in the early arterial phase of enhancement. IMPRESSION: 1. Poor opacification of the subsegmental branches of the right lower lobe suspicious for pulmonary embolus. However, no discrete filling defect is visualized to definitely confirm subsegmental emboli. The pulmonary arteries otherwise opacifies expected. 2. Bilateral low density pleural effusions and compressive atelectasis. 3. Cardiomegaly and pulmonary edema, suggesting congestive failure. 4. Questionable gallbladder wall thickening versus pericholecystic fluid which is poorly characterized on this limited view. If further characterization is warranted, right upper quadrant ultrasound is recommended. These findings were discussed with Dr. Logan at 1:45 PM on . Dictated by: Cynthia Yin M.D. on 02/07/2017 at 13:37 Approved by: Cynthia Yin M.D. on 02/07/2017 at 13:46 ECG 12 Lead sinus with LBBB Brief History This is a delightful 86 y/o male with extensive medical history as mentioned in Dr. Gallagher's note. Overnight, he has started to feel better. He denies any more chest pressure since early am. This sort of coincides with starting metoprolol. He has been on IV heparin for nearly 48 hours as well. He has been receiving ASA 81 mg once a day but no clopidogrel or daily nitrates up to this point. His EF looks a little weaker in comparison to prior echo study and agree that his is most likely secondary to his recent ischemic event. He looks comfortable in his bed and almost is lying in a flat supine position w/o difficulty breathing. His troponin has started to come down as well. Hospital Course 86-year-old male presents with a NSTEMI Patient was presented to the hospital with a complaint of chest pain and found to have an NSTEMI. There is also questionable PE that was also found on CT angio of the chest. The patient was placed on heparin for anticoagulation. Cardiology followed up with the patient and decided that it was better to maximize the patient medically as opposed to taking him to the [facility]. Cardiology added Plavix 75 mg daily, Imdur 60 mg daily, metoprolol 25 mg twice a day. Lisinopril 2.5 mg was added however due to the patient's persistent low blood pressure this medication was discontinued. The patient is currently stable on the current medications and his chest pain has resolved. The patient has been able to walk 200-500ft with no chest pain. The patient was started on warfarin for a PE and should continue close follow up to manage the patient for a therapeutic dose. The patient is currently stable and is being discharged back to his nursing facility in stable condition. NSTEMI -Continue warfarin -Patient is not a candidate for cardiac catheterization continue to maximize the patient with medical management first before doing a cardiac cath. -Continue Plavix 75 mg daily (as per recommended by cardiology) -Continue Imdur 60mg QD -Continue metoprolol 25 mg by mouth twice a day -Hold lisinopril 2.5 mg. At this time the patient's blood pressure is not able to you know all of the medications. We will continue the Imdur and metoprolol and see if this continues to resolve the patient's chest pain. -PT and patient should eat all of his meals in a chair -Will consider adding Ranexa if the patient's BP is still unable to tolerate the new medication changes. Acute on chronic systolic heart failure -EF 25% NYHA class IIIB -Oral Lasix 40 mg daily -Continue Imdur as recommended by cardiology -Continue metoprolol XL to 25 mg twice a day -Discontinue lisinopril 2.5 mg daily patient is unable to tolerate this medication due to hypotension and we were unable to increase the dosage 5-10 mg daily as recommended by cardiology. -Continue to monitor CAD - Present on admission -Restart aspirin 81 mg daily -Restart atorvastatin 80 mg by mouth daily at bedtime Potential PE seen on CTA of chest - Currently anticoagulated with heparin Code Status: DNR/DNI DVT prophylaxis: Continue heparin Exam Vital Signs (Last) Date Time Temp Pulse Resp B/P Pulse Ox O2 Delivery O2 Flow Rate FiO2 02/12/17 08:55 Supplement Oxygen 02/12/17 07:43 36.7 80 15 119/72 99 02/12/17 04:00 3.00 Exam Physical Exam: GEN: Patient was awake, alert, responding appropriately to questions HEENT: Pupils equal round and reactive to light, extraocular eye muscles intact , Neck soft supple, trachea midline, nomocephalic/atraumatic CV: +S1/S2, regular rate and rhythm, harsh systolic murmur auscultated Respiratory: CTAB, no wheezes, rales, rhonchi GI: +bowel sounds x4, soft, compressible, nontender to palpation EXT: no clubbing, cyanosis, edema Neuro: Cranial nerves II-XII grossly intact Psych: mood and affect were appropriate Test 02/07/17 09:28 02/08/17 03:20 02/08/17 09:40 02/10/17 06:10 D-Dimer 1.59mg/L FEU (<0.50) Pro-B-Type Natriuretic Peptide 19581mu/mL (0-486) Neutrophils (%) (Auto) 62.4% (40-74) Lymphocytes (%) (Auto) 25.0% (14-46) Monocytes (%) (Auto) 10.6% (4-12) Eosinophils (%) (Auto) 1.1% (0-5) Basophils (%) (Auto) 0.6% (0-3) Hemoglobin A1c 5.8% (4.8-5.6) Phosphorus Level 4.5mg/dL (2.5-4.9) Magnesium Level 2.2mg/dL (1.6-2.6) Triglycerides Level 80mg/dL (0-149) Cholesterol Level 188mg/dL (100-199) LDL Cholesterol, Calculated 112.000mg/dL (0-99) VLDL Cholesterol 16.000mg/dL HDL Cholesterol 60mg/dL (>39) Cholesterol/HDL Ratio 3.13 (0.0-4.4) Thyroid Stimulating Hormone (TSH) 1.680uIU/mL (0.450-4.500) Troponin T 1.86ug/L (0.0-0.011) Total Bilirubin 0.8mg/dL (0.0-1.2) Aspartate Amino Transf (AST/SGOT) 44U/L (0-50) Alanine Aminotransferase (ALT/SGPT) 58U/L (0-44) Alkaline Phosphatase 85U/L (25-160) Total Protein 5.3g/dL (6.4-8.4) Albumin 3.2g/dL (3.4-5.0) Test 02/10/17 12:10 02/11/17 08:17 02/12/17 06:03 02/12/17 08:35 Activated Partial Thromboplast Time 94.4sec (22.8-33.0) White Blood Count 6.7th/mm3 (3.8-10.1) Red Blood Count 4.20mil/mm3 (4.40-5.80) Hemoglobin 12.6g/dL (13.8-17.2) Hematocrit 39.0% (41.0-50.0) Mean Corpuscular Volume 92.9fL (81-100) Mean Corpuscular Hemoglobin 30.0pg (27.0-35.0) Mean Corpuscular Hemoglobin Concent 32.3% (32.0-37.0) Red Cell Distribution Width 17.7% (12.3-15.4) Platelet Count 147bil/L (150-400) Prothrombin Time 11.1sec (8.1-12.5) Prothromb Time International Ratio 1.04ratio Sodium Level 135mEq/L (134-144) Chloride Level 97mEq/L (97-108) Carbon Dioxide Level 23mmol/L (18-29) Blood Urea Nitrogen 48mg/dL (8-27) Creatinine 1.34mg/dL (0.76-1.27) Estimat Glomerular Filtration Rate 53mL/min (>59) Glucose Level 126mg/dL (60-99) Calcium Level 9.3mg/dL (8.5-10.1) Potassium Level 5.0mEq/L (3.5-5.2) Discharge Medications Discharge Medications Acetaminophen (Acetaminophen) 325 Mg Tablet 650 MG PO BID (Reported) Alprazolam (Alprazolam) 0.25 Mg Tablet 0.25 MG PO BID (Reported) Aspirin (Aspirin) 81 Mg Tablet 81 MG PO QAM (Reported) Atorvastatin Calcium (Atorvastatin Calcium) 40 Mg Tablet 80 MG PO HS Prescribed by: NICOLAS BOYD DO Cholecalciferol (Vitamin D3) (Vitamin D3) 2,000 Unit Capsule 2,000 UNIT PO QAM ( Reported) Clopidogrel (Clopidogrel) 75 Mg Tablet 75 MG PO DAILY Prescribed by: NICOLAS BOYD DO Duloxetine (Cymbalta) 30 Mg Capsule.dr 30 MG PO QAM (Reported) Furosemide (Lasix) 20 Mg Tablet 40 MG PO DAILY (Reported) Isosorbide MN ER (Isosorbide MN ER) 60 Mg Tab.er.24h 60 MG PO 0730 Prescribed by: NICOLAS BOYD DO Loratadine (Claritin) 10 Mg Capsule 10 MG PO DAILY (Reported) Melatonin (Melatonin) 3 Mg Tablet 3 MG PO HS (Reported) Metoprolol Succinate ER (Metoprolol Succinate ER) 25 Mg Tab.er.24h 25 MG PO BIDWM Prescribed by: NICOLAS BOYD DO Multivitamin (Multivitamins) 1 Each Capsule 1 EACH PO QAM (Reported) Polyethylene Glycol 3350 (Polyethylene Glycol 3350) 17 Gm Powd.pack 17 GM PO QAM (Reported) HOLD FOR LOOSE STOOLS Potassium Chloride ER (Klor-Con M10) 10 Meq Tablet 10 MEQ PO DAILYWM (Reported) Sennosides (Senna) 8.6 Mg Tablet 8.6 MG PO BID (Reported) Warfarin Sodium (Warfarin Sodium) 3 Mg Tablet 3 MG PO DAILY Prescribed by: NICOLAS BOYD DO As needed Alprazolam (Alprazolam) 0.25 Mg Tablet 0.25 MG PO DAILY PRN PRN For Anxiety ( Reported) Bisacodyl (Dulcolax Rectal) 10 Mg Supp.rect 10 MG RC EVERY 3 DAYS PRN PRN CONSTIP (Reported) Bismuth Subsalicylate (Digestive Relief) 262 Mg/15 Ml Oral.susp 30 ML PO BID PRN PRN For Diarrhea or Loose Stool (Reported) Docusate Sodium (Colace) 100 Mg Capsule 100 MG PO BID PRN PRN For Constipation ( Reported) Ibuprofen (Ibuprofen) 200 Mg Capsule 400 MG PO DAILYWM PRN PRN For Pain ( Reported) Mag Hydrox/Al Hydrox/Simeth (Adv Antacid-[place] Liquid) 400 Mg-400 Mg-40 Mg/5 Ml Oral.susp 30 ML PO QID PRN PRN For Dyspepsia or Heartburn (Reported) Magnesium Hydroxide (Milk of Magnesia) 400 Mg/5 Ml Oral.susp 30 ML PO Q3DAYS PRN PRN For Constipation (Reported) Na Phos,M-B/Na Phos,Di-Ba (Fleet Enema) 133 Ml Enema 133 ML RC Q3DAYS PRN PRN For Constipation (Reported) Nitroglycerin SL (Nitroglycerin SL) 0.4 Mg Tab.subl 0.4 MG SL PRN PRN PRN For Chest Pain (Reported) Ondansetron (Ondansetron) 4 Mg Tablet 4 MG PO Q6HR PRN PRN For Nausea (Reported ) oxyCODONE-Acetaminophen 5-325 mg (oxyCODONE-Acetaminophen 5-325 mg) 1 Each Tablet 1-2 TAB PO DAILY PRN PRN For Pain (Reported) Followup Plan Follow-up plan Patient will follow-up with Coumadin clinic in 2 days (02/14/17) for INR check. Discharge Diet: No restrictions Discharge Activity: No restrictions (gradually return to normal daily activities) Follow-up Provider: Allie Haq Follow-up with PCP in: 1 week (if an appointment has not been made please call to schedule an appointment) Follow-up in: 2 weeks (please call to schedule an appointment with your [facility]er [facility] ) Time spent Greater than 35 minutes copies to: Allie Haq Precious L DO February 12, 2017 11:58
== END 2017-02-12 15:25 | DRG 280 ==
LOC: SED 08:40 → EDBD 08:40 → MPC 15:02 → MOC 02-08 10:36
PROVIDERS: ADMIT Family Medicine; ATTEND Family Medicine
DX: I21.4 Non-ST elevation (NSTEMI) myocardial infarction (principal); I50.23 Acute on chronic systolic (congestive) heart failure; I42.9 Cardiomyopathy, unspecified; I25.10 Atherosclerotic heart disease of native coronary artery without angina pectoris; I10 Essential (primary) hypertension; G47.33 Obstructive sleep apnea (adult) (pediatric); I34.0 Nonrheumatic mitral (valve) insufficiency; E78.5 Hyperlipidemia, unspecified; I73.9 Peripheral vascular disease, unspecified; M19.90 Unspecified osteoarthritis, unspecified site; Z66 Do not resuscitate; Z95.1 Presence of aortocoronary bypass graft; Z79.82 Long term (current) use of aspirin; Z87.891 Personal history of nicotine dependence; Z85.51 Personal history of malignant neoplasm of bladder; Z95.4 Presence of other heart-valve replacement; Z95.0 Presence of cardiac pacemaker; Z85.118 Personal history of other malignant neoplasm of bronchus and lung

== ENCOUNTER 2017-04-27 11:30 | Inpatient (IN) | payer MEDICARE, OTHER ==
[~2017-04-27] VITALS: Ht 167.6 cm; Wt 61.6 kg
[~2017-04-27 11:30] MED LIST changes: +ATOR40TA69 PO; +CLOP75TA28 PO; -FURO-128 PO; +FURO-129 PO; +ISOS60TA2 PO; -LIP40 PO; +LORA10CA PO; +METO25TA99 PO; +WARF3TAB7 PO
[2017-04-27 11:34] VITALS: BP 120/70; PULSE 64; RESP 22; O2SAT 96
[2017-04-27 12:14] LABS: BASOPHILS % (AUTO) 0.5 % (0-3); MONOCYTES % (AUTO) 10.2 % (4-12); Mean Corpuscular Hemoglobin 30.1 pg (27.0-35.0); Mean Corpuscular Volume 91.3 fL (81-100); NEUTROPHILS % (AUTO) 61.2 % (40-74); Platelet Count 143 bil/L (150-400)
--- NOTE | 2017-04-27 12:20 | ED.REPORT ---
HPI-General Illness Date of Service Apr 27, 2017 ED Provider: Bouchra Riley MD Patient is an 86 year old male with a history of CAD, CABG, COPD, CHF, hypertension and multiple other conditions who presents to the ED via EMS complaining of worsening weakness for the past two day. Associated symptoms include decreased appetite for the past three days and fatigue. Patient denies increased edema or shortness of breath. He reports that he has had ongoing weakness but it has gotten progressively worse in the last two days. When he had his blood drawn at a previous time, he was told there were some abnormalities. Nursing Notes Stated Complaint: WEAKNESS Chief Complaint: General Complaint Nursing Notes Reviewed: Yes Allergies: Coded Allergies: hydrocodone (Verified Allergy, Mild, 04/27/17) NAUSEA atenolol (Verified Allergy, Unknown, 04/27/17) codeine (Verified Allergy, Unknown, 04/27/17) Scheduled Acetaminophen (Acetaminophen) 325 Mg Tablet 650 MG PO BIDWM Alprazolam (Alprazolam) 0.25 Mg Tablet 0.25 MG PO BID 1600 & 2000 Atorvastatin (Lipitor) 20 Mg Tablet 20 MG PO HS Cholecalciferol (Vitamin D3) (Vitamin D3) 2,000 Unit Capsule 2,000 UNIT PO QAM Duloxetine (Cymbalta) 30 Mg Capsule.dr 30 MG PO QAM Furosemide (Lasix) 20 Mg Tablet 40 MG PO EVERY OTHER DAY LASIX 60 MG ALTERNATING WITH LASIX 40 MG Furosemide (Furosemide) 40 Mg Tablet 60 MG PO EVERY OTHER DAY LASIX 60 MG ALTERNATING WITH LASIX 40 MG Isosorbide MN ER (Isosorbide MN ER) 60 Mg Tab.er.24h 60 MG PO 0730 Loratadine (Claritin) 10 Mg Capsule 10 MG PO QAM Melatonin (Melatonin) 3 Mg Tablet 3 MG PO HS Metoprolol Succinate ER (Metoprolol Succinate ER) 25 Mg Tab.er.24h 25 MG PO BIDWM Multivitamin (Multivitamins) 1 Each Capsule 1 EACH PO QAM Polyethylene Glycol 3350 (Polyethylene Glycol 3350) 17 Gm Powd.pack 17 GM PO QAM HOLD FOR LOOSE STOOLS Potassium Chloride ER (Klor-Con M10) 10 Meq Tablet 10 MEQ PO DAILYWM Sennosides (Senna) 8.6 Mg Tablet 8.6 MG PO BIDWM Warfarin Sodium (Warfarin Sodium) 3 Mg Tablet 1.5 MG PO TUES/THURS WARFARIN 1.5 MG TUES/THURS AND 3 MG ALL OTHER DAYS Warfarin Sodium (Warfarin Sodium) 3 Mg Tablet 3 MG PO DAILY EXCEPT TUE/BEBETO WARFARIN 1.5 MG TUES/THURS AND 3 MG ALL OTHER DAYS Scheduled PRN Acetaminophen (Acetaminophen) 325 Mg Tablet 650 MG PO Q4H PRN PRN For Fever Alprazolam (Alprazolam) 0.25 Mg Tablet 0.25 MG PO DAILY PRN PRN For Anxiety Bisacodyl (Dulcolax Rectal) 10 Mg Supp.rect 10 MG RC EVERY 3 DAYS PRN PRN For Constipation FOR CONSTIPATION NOT RELIEVED BY MILK OF MAGNESIA Bismuth Subsalicylate (Digestive Relief) 262 Mg/15 Ml Oral.susp 30 ML PO BID PRN PRN For Diarrhea or Loose Stool Docusate Sodium (Colace) 100 Mg Capsule 100 MG PO BID PRN PRN For Constipation Furosemide (Furosemide) 80 Mg Tab 40 MG PO DAILY PRN PRN EDEMA OR WEIGHT > 154 LBS Ibuprofen (Ibuprofen) 200 Mg Capsule 400 MG PO DAILYWM PRN PRN For Pain Mag Hydrox/Al Hydrox/Simeth (Adv Antacid-Antigas Liquid) 400 Mg-400 Mg-40 Mg/5 Ml Oral.susp 30 ML PO QID PRN PRN For Dyspepsia or Heartburn Magnesium Hydroxide (Milk of Magnesia) 400 Mg/5 Ml Oral.susp 30 ML PO Q3DAYS PRN PRN For Constipation NTE 2 DOSES/24 HRS Na Phos,M-B/Na Phos,Di-Ba (Fleet Enema) 133 Ml Enema 133 ML RC Q3DAYS PRN PRN For Constipation Nitroglycerin SL (Nitroglycerin SL) 0.4 Mg Tab.subl 0.4 MG SL PRN PRN PRN For Chest Pain Ondansetron (Ondansetron) 4 Mg Tablet 4 MG PO Q6HR PRN PRN For Nausea General Time Seen by MD: 12:13 Chief Complaint Weakness Hx Obtained From: Patient Arrived By: Ambulance Sudden in Onset?: Yes Onset Occurred: 2 days ago Symptom Duration: Since onset Recent Healthcare: Recent doctor visit, Recent hospitalization Similar Sx Previous: Yes Past Medical History Past Medical History Notes: PCP: Dr. Richardson Orthopedist: Dr. Wong at [facility]. Code status: DNR with limited additional interventions The patient would like his body donated to the when he passed. Past Medical History Coronary artery disease s/p status post three-vessel CABG in 2005. Congestive heart failure due to systolic/diastolic dysfunction with chronically elevated BNP Atrial fibrillation Hypertension Aortic stenosis, severe status post TAVR March 2015 complicated by complete heart block requiring [employer] DDDR pacemaker Adenocarcinoma of the lung Severe mitral regurgitation, status post mitral clip procedure in March 2015. Peripheral artery disease with a history of a right common femoral endarterectomy with patch angioplasty Obstructive sleep apnea, using CPAP Hypertension, Hyperlipidemia Osteoarthritis Anxiety. Benign prostatic hypertrophy Questionable history of hepatitis B, chronic Bladder cyst and hematuria with apparent obstruction s/p indwelling catheter, followed by Dr. Pulido. Chronic low back pain with spinal stenosis, neuropathy of right foot and oseoarthritis Nicotine dependence in remission since 1980. Bladder cancer Past Surgical History Status post left percutaneous transfemoral TAPVR with an [employer] life science XT pericardial tissue heart valve placed at the [facility] 03/26/2015 Right common femoral artery open endarterectomy with patch angioplasty in 2008 Bladder CA with surgery including lymphadenectomy on the right side by Dr. Pulido L4-L5 back surgery 2008 Aortic valve replacement 2015 CABG x4 in 2005 Pacemaker Mitral clip procedure Right common femoral endarterectomy with patch angioplasty TURP History of cataract surgery Diverticulectomy Reports: Pacemaker insertion Family History Noncontributory Smoking History Former Smoker Social History Lives at [facility] in [place] Alcohol Use: "Social" Drug Use: Denies drug use Other Social History: Good social support, , Local resident Ambulatory Status Cane Review of Systems +decreased appetite Full Review of Systems Constitutional: Reports: Fatigue, Malaise, Weakness - generalized, Denies: Chills, Fever Respiratory: Denies: Non-productive cough, Shortness of breath Skin: Denies Itching, Denies Rash, Denies Swelling Complete sys rev & neg: except as marked. Physical Exam Vital Signs Vital Signs Date Time Temp Pulse Resp B/P Pulse Ox O2 Delivery O2 Flow Rate FiO2 04/27/17 16:21 81 21 129/67 97 Room Air 04/27/17 13:07 70 21 115/65 98 Room Air 04/27/17 11:34 36.4 64 22 120/70 96 Room Air Initial VS: Reviewed General/Constitutional: Awake, Alert, No acute distress Head / Eyes: Atraumatic, Normocephalic, PERRL, EOMI Neck: Atraumatic, Supple Respiratory / Chest: Atraumatic, No respiratory distress Cardiovascular: Heart rate NL Heart Rate / Rhythm: Positive: Irregular rhythm 3/6 murmur and an S3 Abdomen: Atraumatic, Soft Upper Extremities Upper Extremity / MS: Atraumatic, Inspection NL Lower Extremity / Pelvis / MS: Atraumatic, No edema Skin: Atraumatic, Color NL, No rash, Warm, Dry Neurologic: Oriented X3, Speech NL, No motor deficits, No sensory deficits Psychiatric: Affect NL, Mood NL Interpretation & Diagnostics Interpretation & Diagnostics: BNP is chronically elevated Creat has increased from 1.3 baseline Lab Results Interpretation Result Diagram: 04/27/17 1200 04/27/17 1200 Test 04/27/17 12:00 04/27/17 13:50 White Blood Count 7.6th/mm3 (3.8-10.1) Red Blood Count 3.79mil/mm3 (4.40-5.80) Hemoglobin 11.4g/dL (13.8-17.2) Hematocrit 34.6% (41.0-50.0) Mean Corpuscular Volume 91.3fL (81-100) Mean Corpuscular Hemoglobin 30.1pg (27.0-35.0) Mean Corpuscular Hemoglobin Concent 32.9% (32.0-37.0) Red Cell Distribution Width 14.8% (12.3-15.4) Platelet Count 143bil/L (150-400) Neutrophils (%) (Auto) 61.2% (40-74) Lymphocytes (%) (Auto) 26.0% (14-46) Monocytes (%) (Auto) 10.2% (4-12) Eosinophils (%) (Auto) 2.0% (0-5) Basophils (%) (Auto) 0.5% (0-3) Prothrombin Time 52.8sec (8.1-12.5) Prothromb Time International Ratio 4.78ratio Sodium Level 135mEq/L (134-144) Potassium Level 4.4mEq/L (3.5-5.2) Chloride Level 99mEq/L (97-108) Carbon Dioxide Level 19mmol/L (18-29) Blood Urea Nitrogen 81mg/dL (8-27) Creatinine 2.20mg/dL (0.76-1.27) Estimat Glomerular Filtration Rate 30mL/min (>59) Glucose Level 133mg/dL (60-99) Lactic Acid Level 1.7mmol/L (0.4-2.0) Calcium Level 9.3mg/dL (8.5-10.1) Total Bilirubin 0.7mg/dL (0.0-1.2) Aspartate Amino Transf (AST/SGOT) 70U/L (0-50) Alanine Aminotransferase (ALT/SGPT) 96U/L (0-44) Alkaline Phosphatase 102U/L (25-160) Pro-B-Type Natriuretic Peptide 10256ir/mL (0-486) Total Protein 6.8g/dL (6.4-8.4) Albumin 3.6g/dL (3.4-5.0) Urine Color Yellow (YELLOW) Urine Appearance Turbid (CLEAR,HAZY) Urine pH 5.5 (5.0-8.0) Urine Specific [place] 1.015 (1.003-1.035) Urine Protein 30mg/dL (NEG,TRACE) Urine Glucose (UA) Negativemg/dL (NEGATIVE) Urine Ketones Negativemg/dL (NEGATIVE) Urine Occult Blood Moderate (NEGATIVE) Urine Nitrite Negative (NEGATIVE) Urine Bilirubin Negative (NEGATIVE) Urine Urobilinogen Normalmg/dL (NORMAL) Urine Leukocyte Esterase Large (NEGATIVE) Urine RBC 0-2/hpf (0-2) Urine WBC >50/hpf (0-5) Urine Epithelial Cells Occasional/hpf (NONE-MOD) Urine Crystals None seen (NONE SEEN) Urine Bacteria Moderate/hpf (NONE-FEW) Urine Hyaline Casts None/lpf (NONE) Urine Granular Casts None seen (NONE SEEN) Urine Waxy Casts None seen (NONE SEEN) Urine Red Blood Cell Casts None seen (NONE SEEN) Urine White Blood Cell Casts None seen (NONE SEEN) Urine Mucus None seen (None Seen) Urine Trichomonas None seen (NONE SEEN) Urine Yeast None (NONE SEEN) Urinalysis Comment None Urine Culture Reflexed Indicated X-Ray Chest Interpretation Chest Xray Interpretation: IMPRESSION: Chronic cardiomegaly, mild in overall severity. Anterior calcified granuloma right lower lung. Postsurgical changes as discussed. A slight degree of pulmonary edema may be superimposed. Dictated by: Marcello Gordon M.D. on 04/27/2017 at 14:21 Approved by: Marcello Gordon M.D. on 04/27/2017 at 14:23 View: Portable, 1 view Interpretation / Wet Read by: Interpret - Radiologist Re-Eval/Medical Decision Med Decision/Clinical Course Care assumed from Mr. Newman -year-old presents with weakness. Workup is consistent with worsening renal failure likely chronic as well as prerenal with significant dehydration. He has a supratherapeutic INR without any evidence of acute bleeding or anemia. He has no clinical evidence of congestive heart failure and has a significantly elevated proBNP is chronically elevated. He does have a UTI. There is no evidence of sepsis. He will be given a dose of IV ceftriaxone small fluid bolus. We need to be admitted. I may benefit from renal consultation. Gentle fluid rehydration given his tenuous fluid status and known problems with heart failure and volume overload in the past Time of Eval: 15:00 Re-Evaluation/Progress Note: Discussed all results and plan for admit. Patient understands and agrees to plan. All questions were addressed. Consultation : Consulted With: Hospitalist Escrow Agent: Agrees with eval, Agrees with plan, Accepts admit Counseled Regarding: Diagnosis, Lab results, Need for admission Discharge & Departure Primary Impression: Weakness Additional Impressions: Renal failure Supratherapeutic INR UTI (urinary tract infection) Urinary tract infection type: site unspecified Hematuria presence: without hematuria Qualified Code: N39.0 - Urinary tract infection, site not specified CHF (congestive heart failure) Congestive heart failure type: unspecified congestive heart failure type Congestive heart failure chronicity: unspecified congestive heart failure chronicity Qualified Code: I50.9 - Heart failure, unspecified Disposition: ADMITTED TO HOSPITAL Discharge Condition All VS Reviewed: Yes Condition: Stable Referrals: Allie Haq (PCP) Mg Attestation Portions of this note were transcribed by Shanell Lara. I, Dr. Riley personally performed the history, physical exam and medical decision-making; I reviewed and confirmed the accuracy of the information in the transcribed note. Signed by: Mg Olson, 04/27/17 and 1433 copies to: Allie Haq Christopher R PAC Apr 27, 2017 12:20 Bouchra Riley MD Apr 27, 2017 14:01 Kathi Lara Apr 27, 2017 14:35
[2017-04-27 12:29] LABS: INR 4.78 ratio
[2017-04-27 13:07] VITALS: BP 115/65; PULSE 70; RESP 21; O2SAT 98
[2017-04-27 14:02] LABS: APPEARANCE,URINE TURBID (CLEAR,HAZY); COLOR,URINE YELLOW (YELLOW); OCCULT BLOOD,URINE MODERATE (NEGATIVE); PH,URINE 5.5 (5.0-8.0); UROBILINOGEN,URINE NORMAL (NORMAL)
--- NOTE | 2017-04-27 14:26 | DRSVH ---
PROCEDURE: X-RAY CHEST ONE VIEW, PORTABLE ([id number]) INDICATIONS: weakness, elevated BNP TECHNIQUE: One view of the chest was acquired. COMPARISON: [facility], CT, CT ANGIO CHEST PE, 01/05/2017, 18:10. [facility] , CT, CT ANGIO CHEST PE, 02/07/2017, 13:13. [facility], CR, XR CHEST 1VW (PORTABLE), 02/12, 3:37. [facility], CR, XR CHEST 1VW (PORTABLE), 02/07/2017, 9:13. FINDINGS: Surgical changes and devices: Sternotomy wires, prior CABG, aortic root stent, dual-chamber cardiac p acemaking device and leads appear in stable normal position. Lungs and pleura: No pleural effusions or pneumothorax. Lungs are unchanged with a calcified anteri or right lower lung presumed granuloma, subpleural. This was seen on prior CT scanning. Mediastinum: Mediastinal contours appear normal. Heart size is mildly enlarged, globally. Bones and chest wall: No suspicious bony lesions. Overlying soft tissues appear unremarkable. IMPRESSION: Chronic cardiomegaly, mild in overall severity. Anterior calcified granuloma right lower lung. Postsurgical changes as discussed. A slight degree of pulmonary edema may be superimposed. Dictated by: Marcello Gordon M.D. on 04/27/2017 at 14:21 Approved by: Marcello Gordon M.D. on 04/27/2017 at 14:23
[2017-04-27] MEDS ORDERED: ACET325T51 PO (14:55)
[2017-04-27] MEDS ORDERED: FURO40TA4 PO (14:55)
[2017-04-27] MEDS ORDERED: ATOR20TA PO (14:55)
[2017-04-27] MEDS ORDERED: FRSM80T PO (14:57)
[2017-04-27] MEDS ORDERED: WARF3TAB7 PO ×2 (14:59)
[2017-04-27] MEDS ORDERED: cefTRIAXone Inj 2,000 MG in Dextrose 5% Minibag Plus 50 ML IV ONE (15:05)
[2017-04-27] MEDS ORDERED: 0.9% Sodium Chloride 500 ML IV ONE (15:05)
[2017-04-27 16:21] VITALS: BP 129/67; PULSE 81; RESP 21; O2SAT 97
[2017-04-27] MEDS ORDERED: Ondansetron 2 mg/mL 2 mL Inj IVPUSH PRN (18:25)
[2017-04-27] MEDS ORDERED: Polyethylene Glycol (PEG) 17 Gm Powder PO PRN (18:25)
[2017-04-27] MEDS ORDERED: Alum-Mag Hydrox-Simeth 30 mL Suspension PO PRN (18:25)
[2017-04-27 18:48] VITALS: BP 110/58; PULSE 66; RESP 18; O2SAT 96
--- NOTE | 2017-04-27 19:55 | PCM.HPMED ---
Subjective Date of Service Apr 27, 2017 Primary Provider: Admitting Physician: Omi Smith MD Primary Care Physician: Allie Haq Attending Physician: Omi Smith MD Chief Complaint: Worsening Weakness and fatigue History of Present Illness: 86-year-old male with a history of CAD S/P CABG, COPD, CHF, and hypertension, as well as many complicating comorbidities, who presented to emergency department due to increasing weakness and fatigue over the last week. Patient resides at [facility] and states that recently he has had no appetite with decreased oral intake, but denies ongoing fever, chills, dysuria, diarrhea, vomiting/nausea, dizziness, lightheadedness. Patient's a year and a half ago and since this time the patient seems to be steady decline. Posterior fractures hip and underwent rehabilitation at [facility] for an extended period of time, and is unclear if he ever returned home before being transferred to [facility], where he has been for 6 months. Patient denies any chest pain shortness of breath, but does attest to decreased exercise tolerance. Patient's last echo was in February of this year revealing a ejection fraction 20-25%. At that time he was admitted due to CHF exacerbation. Emergency department blood work showed a elevated BNP of 30,000, with acute kidney injury and elevation in transaminases. Has no leukocytosis, although there is very mild thrombocytopenia Review of Systems: Complete review of systems performed; pertinent positives and negatives per history of present illness, all other systems reviewed and are negative Allergies Coded Allergies: hydrocodone (Verified Allergy, Mild, 04/27/17) NAUSEA atenolol (Verified Allergy, Unknown, 04/27/17) codeine (Verified Allergy, Unknown, 04/27/17) Home Medications Acetaminophen (Acetaminophen) 325 Mg Tablet 650 MG PO BIDWM Alprazolam (Alprazolam) 0.25 Mg Tablet 0.25 MG PO BID 1600 & 2000 Atorvastatin (Lipitor) 20 Mg Tablet 20 MG PO HS Cholecalciferol (Vitamin D3) (Vitamin D3) 2,000 Unit Capsule 2,000 UNIT PO QAM Duloxetine (Cymbalta) 30 Mg Capsule.dr 30 MG PO QAM Isosorbide MN ER (Isosorbide MN ER) 60 Mg Tab.er.24h 60 MG PO 0730 Loratadine (Claritin) 10 Mg Capsule 10 MG PO QAM Melatonin (Melatonin) 3 Mg Tablet 3 MG PO HS Metoprolol Succinate ER (Metoprolol Succinate ER) 25 Mg Tab.er.24h 25 MG PO BIDWM Multivitamin (Multivitamins) 1 Each Capsule 1 EACH PO QAM Polyethylene Glycol 3350 (Polyethylene Glycol 3350) 17 Gm Powd.pack 17 GM PO QAM HOLD FOR LOOSE STOOLS Potassium Chloride ER (Klor-Con M10) 10 Meq Tablet 10 MEQ PO DAILYWM Sennosides (Senna) 8.6 Mg Tablet 8.6 MG PO BIDWM Warfarin Sodium (Warfarin Sodium) 3 Mg Tablet 1.5 MG PO TUES/THURS WARFARIN 1.5 MG TUES/THURS AND 3 MG ALL OTHER DAYS Warfarin Sodium (Warfarin Sodium) 3 Mg Tablet 3 MG PO DAILY EXCEPT TUE/BEBETO WARFARIN 1.5 MG TUES/THURS AND 3 MG ALL OTHER DAYS Bisacodyl (Dulcolax Rectal) 10 Mg Supp.rect 10 MG RC EVERY 3 DAYS PRN PRN For Constipation FOR CONSTIPATION NOT RELIEVED BY MILK OF MAGNESIA Bismuth Subsalicylate (Digestive Relief) 262 Mg/15 Ml Oral.susp 30 ML PO BID PRN PRN For Diarrhea or Loose Stool Docusate Sodium (Colace) 100 Mg Capsule 100 MG PO BID PRN PRN For Constipation Furosemide (Furosemide) 80 Mg Tab 40 MG PO DAILY PRN PRN EDEMA OR WEIGHT > 154 LBS PMH Coronary artery disease s/p status post three-vessel CABG in 2005. Congestive heart failure due to systolic/diastolic dysfunction with chronically elevated BNP Atrial fibrillation Hypertension Aortic stenosis, severe status post TAVR [facility] March 2015 complicated by complete heart block requiring [employer] DDDR pacemaker Adenocarcinoma of the lung Severe mitral regurgitation, status post mitral clip procedure in March 2015. Peripheral artery disease with a history of a right common femoral endarterectomy with patch angioplasty Obstructive sleep apnea, using CPAP Hypertension, Hyperlipidemia Osteoarthritis Anxiety. Benign prostatic hypertrophy Questionable history of hepatitis B, chronic Bladder cyst and hematuria with apparent obstruction s/p indwelling catheter, followed by Dr. Pulido. Chronic low back pain with spinal stenosis, neuropathy of right foot and oseoarthritis Nicotine dependence in remission since 1980. Bladder cancer Surgical History Status post left percutaneous transfemoral TAPVR with an [employer] XT pericardial tissue heart valve placed at the [facility] 03/26/2015 Right common femoral artery open endarterectomy with patch angioplasty in 2008 Bladder CA with surgery including lymphadenectomy on the right side by Dr. Pulido L4-L5 back surgery 2008 Aortic valve replacement 2015 CABG x4 in 2005 Pacemaker Mitral clip procedure Right common femoral endarterectomy with patch angioplasty TURP History of cataract surgery Diverticulectomy Reports: Pacemaker insertion Family History Father of an SD/CHF Mother's history is unknown Social History Hx Alcohol Use: Yes (RARE) Hx Substance Use: No Hx Tobacco Use: No Smoking Status: Former Smoker Exam Vital Signs Vital Sign - Last Date Time Temp Pulse Resp B/P Pulse Ox O2 Delivery O2 Flow Rate FiO2 04/27/17 18:48 66 18 110/58 96 Room Air 04/27/17 11:34 36.4 Exam General: Pleasant male in no acute distress HEENT: PERRLA, EOMI, nonicteric, membranes moist, no JVD noted Lymph: No lymphadenopathy Cardio: Regular rate and rhythm no murmurs rubs or gallops Respiratory: CTA bilaterally, mild wheezes and crackles Abdomen: Soft, positive bowel sounds, tympanic and moderately distended without pain Extremities: No edema, 4/5 strength Psych: Appropriate mood and affect Neuro: CN II through XII grossly intact, sensation intact throughout, DTRs normal Skin: No rash Lab and Diagnostics Result Diagram: 04/27/17 1200 04/27/17 1200 X-Rays, CTs and MRIs Chest x-ray IMPRESSION: Chronic cardiomegaly, mild in overall severity. Anterior calcified granuloma right lower lung. Postsurgical changes as discussed. A slight degree of pulmonary edema may be superimposed. Dictated by: Marcello Gordon M.D. on 04/27/2017 at 14:21 12-lead ECG Paced rhythm at 70 with questionable left bundle branch block; QTC 520 Assessment & Plan 86-year-old male, came medical history significant cardiac disease presents emergency department due to increasing weakness, anorexia, fatigue, and low exercise tolerance. CHF exacerbation; present on admission; ongoing -Patient's worsening weakness and fatigue, as well as elevations in LFTs and creatinine demonstrate vascular congestion, likely cardiorenal syndrome -Lungs are mostly clear, chest x-ray questionable edema (reviewed by admitting team); BNP is greater than 30,000 -Daily weights, standing -Lasix 80 mg IV, redose in am after review of am labs -Fluid restriction to 1500 mL day -Continue metoprolol -Repeat chest x-ray and labs in the morning -ACEI/ARB prior to discharge -ECHO ordered for 04/29/2017 Acute on chronic kidney disease; present on admission; ongoing -Cranial greater than 2; appears baseline is between 1.25-1.5, likely cardiorenal syndrome -Attempt diuresis using Lasix 80 mg IV -Avoid NSAIDs and other nephrotoxins -Recheck creatinine in a.m. -Consider nephrology consult if no resolution in the next day or 2 Possible UTI; present admission; ongoing -Patient has a history of UTIs with mixed UA today; positive leukocyte esterase and bacteria, negative nitrite -Patient given ceftriaxone the ED and will continue that every 24 until culture finalizes Depression; present admission; ongoing -Patient appears visibly depressed and having trouble with the passing of his in excellent -Continue duloxetine when med rec is finalized Hyperglycemia; present admission; ongoing -No history of diabetes -BG greater than 133 -Low correctional overnight and tomorrow then add basal on Thursday -Lipid panel -A1c Chronic problems -CAD-continue aspirin -Hypertension-continue home meds when appropriate -Obstructive sleep apnea-limiting to bring home CPAP -Aortic valve replacement-continue warfarin, goal INR> 2.5 -COPD- not having issues right now; continue home meds once med rec completed Disposition: Patient is being admitted to inpatient status with expected length of stay greater than two midnights due to to severity of presentation, duration of treatment, and risks of adverse events disposition DNR/DNI Pain Evaluation: Adequate Pain Control VTE Prophylaxis: Theraputic Anticoag with Warfarin Resuscitation Status: DNR/DNI:Do Not Resuscitate/Intubate Attending Statement The patient was seen and examined together with house staff on 04/27/2017 and I agree with the history, exam and plan as outlined in the note above. Nikunj Lucero DO Apr 27, 2017 19:55 Flor Casey DO Apr 28, 2017 00:22
[2017-04-27 20:04] VITALS: BP 121/72; PULSE 68; RESP 16; O2SAT 99
[2017-04-27] MEDS ORDERED: Glucose 40% Oral Gel 15 Gm Tube PO PRN (20:10)
--- NOTE | 2017-04-27 20:58 | PCM.CONPHA ---
Subjective Date of Service: Apr 27, 2017 Worsening Weakness and fatigue Reason for Pharmacy Consult: Anticoagulation Management Objective Vital Signs Date Time Temp Pulse Resp B/P Pulse Ox O2 Delivery O2 Flow Rate FiO2 04/27/17 20:04 36.2 68 16 121/72 99 Room Air 04/27/17 18:48 66 18 110/58 96 Room Air 04/27/17 16:21 81 21 129/67 97 Room Air 04/27/17 13:07 70 21 115/65 98 Room Air 04/27/17 11:34 36.4 64 22 120/70 96 Room Air Weight (Kilograms): 66.300 Height (Feet): 5 Height (Inches): 6.00 Test 04/27/17 12:00 04/27/17 13:50 White Blood Count 7.6th/mm3 (3.8-10.1) Red Blood Count 3.79mil/mm3 (4.40-5.80) Hemoglobin 11.4g/dL (13.8-17.2) Hematocrit 34.6% (41.0-50.0) Mean Corpuscular Volume 91.3fL (81-100) Mean Corpuscular Hemoglobin 30.1pg (27.0-35.0) Mean Corpuscular Hemoglobin Concent 32.9% (32.0-37.0) Red Cell Distribution Width 14.8% (12.3-15.4) Platelet Count 143bil/L (150-400) Neutrophils (%) (Auto) 61.2% (40-74) Lymphocytes (%) (Auto) 26.0% (14-46) Monocytes (%) (Auto) 10.2% (4-12) Eosinophils (%) (Auto) 2.0% (0-5) Basophils (%) (Auto) 0.5% (0-3) Prothrombin Time 52.8sec (8.1-12.5) Prothromb Time International Ratio 4.78ratio Sodium Level 135mEq/L (134-144) Potassium Level 4.4mEq/L (3.5-5.2) Chloride Level 99mEq/L (97-108) Carbon Dioxide Level 19mmol/L (18-29) Blood Urea Nitrogen 81mg/dL (8-27) Creatinine 2.20mg/dL (0.76-1.27) Estimat Glomerular Filtration Rate 30mL/min (>59) Glucose Level 133mg/dL (60-99) Lactic Acid Level 1.7mmol/L (0.4-2.0) Calcium Level 9.3mg/dL (8.5-10.1) Total Bilirubin 0.7mg/dL (0.0-1.2) Aspartate Amino Transf (AST/SGOT) 70U/L (0-50) Alanine Aminotransferase (ALT/SGPT) 96U/L (0-44) Alkaline Phosphatase 102U/L (25-160) Pro-B-Type Natriuretic Peptide 35503uq/mL (0-486) Total Protein 6.8g/dL (6.4-8.4) Albumin 3.6g/dL (3.4-5.0) Urine Color Yellow (YELLOW) Urine Appearance Turbid (CLEAR,HAZY) Urine pH 5.5 (5.0-8.0) Urine Specific [place] 1.015 (1.003-1.035) Urine Protein 30mg/dL (NEG,TRACE) Urine Glucose (UA) Negativemg/dL (NEGATIVE) Urine Ketones Negativemg/dL (NEGATIVE) Urine Occult Blood Moderate (NEGATIVE) Urine Nitrite Negative (NEGATIVE) Urine Bilirubin Negative (NEGATIVE) Urine Urobilinogen Normalmg/dL (NORMAL) Urine Leukocyte Esterase Large (NEGATIVE) Urine RBC 0-2/hpf (0-2) Urine WBC >50/hpf (0-5) Urine Epithelial Cells Occasional/hpf (NONE-MOD) Urine Crystals None seen (NONE SEEN) Urine Bacteria Moderate/hpf (NONE-FEW) Urine Hyaline Casts None/lpf (NONE) Urine Granular Casts None seen (NONE SEEN) Urine Waxy Casts None seen (NONE SEEN) Urine Red Blood Cell Casts None seen (NONE SEEN) Urine White Blood Cell Casts None seen (NONE SEEN) Urine Mucus None seen (None Seen) Urine Trichomonas None seen (NONE SEEN) Urine Yeast None (NONE SEEN) Urinalysis Comment None Urine Culture Reflexed Indicated Assessment/Plan Assessment/Plan WARFARIN MANAGEMENT A\ 86YO M ADMITTED FOR UTI, WEAKNESS ARF WITH HISTORY OF AFIB AND AORTIC VALVE REPLACEMENT GOAL INR>2.5 CURRENT INR=4.78 HCT=34.6 BDS=007 NO BLEEDING REPORTED BY RN. P\ HOLDING WARFARIN TONIGHT X1 AND CHECK ANOTHER INR IN AM González Bills [facility] Apr 27, 2017 20:58
[2017-04-27] MEDS ORDERED: Dextrose 10% 250 ML IV PRN (21:25)
[2017-04-27] MEDS: Insulin LISPRO 300 Unit/3 mL Inj SUBQ SCH (22:00)
[2017-04-27] MEDS: Furosemide 10 mg/mL 10 mL Inj IVPUSH SCH (23:18)
[2017-04-28 00:52] VITALS: BP 120/70; PULSE 85; RESP 16; O2SAT 95
[2017-04-28] MEDS ORDERED: Cefepime 1,000 MG in Dextrose 5% Minibag Plus 50 ML IV ONE (01:05)
[2017-04-28] MEDS ORDERED: 0.9% Sodium Chloride 100 ML ONE (02:43)
--- NOTE | 2017-04-28 02:57 | NUR ---
Admit to Room 1023 Patient arrived to room 1023 at 1950 via [facility] and accompanied by SHUKRI [place]. Patient transferred to bed on his own with signs of weakness but no signs of dizziness. Patient alert and oriented x3. Answered assessment questions appropriately. VSS. BNP over 30,000. Patient denied pain. No sob. Call light within reach. Care continues.
--- NOTE | 2017-04-28 03:07 | NUR ---
Dixon Catheter Dixon catheter inserted at approximately 0130.
[2017-04-28 05:32] VITALS: BP 118/56; PULSE 79; RESP 16; O2SAT 95
[2017-04-28 06:29] LABS: INR 5.2 ratio
[2017-04-28] MEDS: Insulin LISPRO 300 Unit/3 mL Inj SUBQ SCH ×4 (08:00→22:00)
[2017-04-28] MEDS ORDERED: cefTRIAXone Inj 2,000 MG in Dextrose 5% Minibag Plus 50 ML IV SCH (08:30)
[2017-04-28 08:57] LABS: BASOPHILS % (AUTO) 0.4 % (0-3); EOSINOPHILS % (AUTO) 3.8 % (0-5); MONOCYTES % (AUTO) 11.6 % (4-12); Mean Corpuscular Hemoglobin 30.1 pg (27.0-35.0); Mean Corpuscular Volume 91.6 fL (81-100); Platelet Count 148 bil/L (150-400)
[2017-04-28] MEDS ORDERED: Furosemide 10 mg/mL 4 mL Inj ONE (09:14)
[2017-04-28] MEDS: Furosemide 10 mg/mL 10 mL Inj IVPUSH SCH (09:26)
[2017-04-28] MEDS ORDERED: Cefepime 1,000 MG in Dextrose 5% Minibag Plus 50 ML IV SCH (10:30)
--- NOTE | 2017-04-28 10:53 | PCM.PHAPRO ---
Progress Date of Service: Apr 28, 2017 Warfarin dosing Date Apr 28-Apr INR 4.78 5.20 INR change 0.42 Warf Dose HOLD HOLD Katlin Gao PharmD Apr 28, 2017 10:53
--- NOTE | 2017-04-28 11:52 | DRSVH ---
PROCEDURE: X-RAY CHEST ONE VIEW, PORTABLE ([id number]) INDICATIONS: SHORT OF BREATH TECHNIQUE: One view of the chest was acquired. COMPARISON: [facility], CT, CT ANGIO CHEST PE, 01/05/2017, 18:10. [facility] , CT, CT ANGIO CHEST PE, 02/07/2017, 13:13. [facility], CR, CHEST 1VW (PORTABLE), 04/02/20 15, 12:29. [facility], CR, XR CHEST 1VW (PORTABLE), 02/12/2017, 3:37. [facility], CR, XR CHEST 1VW (PORTABLE), 04/27/2017, 13:43. FINDINGS: Surgical changes and devices: Stable position left cardiac pacer. Patient status post median sternot fidel and valvular replacement. There is fracture of the proximal sternal wire. Lungs and pleura: Examination is limited as the left lung base is incompletely visualized. Within th armando limits, elevation of then right hemidiaphragm redemonstrated. In right basilar lung field is a ca lcified granuloma. Scarlike opacity within the right upper lobe unchanged. No pneumothorax. Biapic al pleural calcification again noted. Mediastinum: Mediastinal contours appear normal. Heart size is enlarged. Bones and chest wall: No suspicious bony lesions. Overlying soft tissues appear unremarkable. Calc ific tendinitis involving the left shoulder joint. IMPRESSION: Limited exam demonstrating no definite acute cardiopulmonary process identified and there is mild stable cardiomegaly. Dictated by: Jh Watkins [facility] Interpreted: Gabriele Monterroso MD on 04/28/2017 at 10:01 Approved by: Gabriele Monterroso M.D. on 04/28/2017 at 11:50
--- NOTE | 2017-04-28 14:30 | NUR ---
Evaluation completed. Please go to "Notes" then click on "Assessments and Notes" (bottom left corner of screen). Then select appropriate discipline tab on top of screen.
--- NOTE | 2017-04-28 16:00 | NUR ---
legs cramps pt having severe leg cramps left leg, received Lasix 80mg IV this am, and had 2800 UOP so far this shift. Dr Canada notified. Pt ambulating in room with SBA, seemed to help cramping some
[2017-04-28 16:18] VITALS: BP 125/81; PULSE 81; RESP 17; O2SAT 95
--- NOTE | 2017-04-28 17:46 | PCM.PNMED ---
Subjective Date of Service Apr 28, 2017 Subjective Reports continued generalized weakness and malaise. Denies any other new issues/ complaints. Exam Vital Signs Vital Sign - Last Date Time Temp Pulse Resp B/P Pulse Ox O2 Delivery O2 Flow Rate FiO2 04/28/17 16:18 36.9 81 17 125/81 95 Room Air Intake and Output 04/27/17 04/27/17 04/28/17 Cumulative From/Thru 15:00 23:00 07:00 04/27/17 18:49 - 04/28/17 06:26 Intake Total 500 ml 63 ml 563 ml Output Total 300 ml 3075 ml 3375 ml Balance 200 ml -3012 ml -2812 ml Intake Oral 0 ml 0 ml IV Total 500 ml 63 ml 563 ml Output Urine Total 300 ml 3075 ml 3375 ml # Voids 2 2 # Bowel Movements 1 1 General: Alert, Cooperative, No Acute Distress Head: Normal Eyes: Scleral Anicteric Nose: Mucous Membr Moist/[place] Mouth: Mucous Membr Moist/[place] Neck: Supple Chest & Lungs: Chest Wall Normal, Clear to auscultation & percussion Cardiovascular: Regular Rate/Rhythm Pulses: NL carotid, radial, femoral, DP, PT Abdomen: Non-tender, Non-distended, Normoactive bowel tones, Soft Extremities: No cyanosis/clubbing/edma bilat Neurological: Grossly Neurologically Intact, Normal Speech IVs and Medications Medications Reviewed: Medications were reviewed in detail Lab and Diagnostics Result Diagram: 04/28/17 0830 04/28/17 0518 X-Rays, CTs and MRIs Chest x-ray IMPRESSION: Chronic cardiomegaly, mild in overall severity. Anterior calcified granuloma right lower lung. Postsurgical changes as discussed. A slight degree of pulmonary edema may be superimposed. Dictated by: Marcello Gordon M.D. on 04/27/2017 at 14:21 12-lead ECG Paced rhythm at 70 with questionable left bundle branch block; QTC 520 Assessment & Plan 86-year-old male, with medical history significant cardiac disease presents due to increasing weakness, anorexia, fatigue, and low exercise tolerance. # Suspected acute systolic congestive heart failure. Present on admission; ongoing - Patient's worsening weakness and fatigue, as well as elevations in LFTs and creatinine demonstrate vascular congestion, possibly cardiorenal syndrome - Daily weights, standing - Continue with IV Lasix - Continue metoprolol and other home cardiac meds - Check limited echo # Acute urinary tract infection (UTI). Present on admission - Change Abx to IV Zosyn - Followup final urine culture result # Acute on chronic kidney disease; present on admission. Improved - Appears baseline is between 1.25-1.5 - Avoid NSAIDs and other nephrotoxins - Recheck creatinine in a.m. # Chronic depression; present admission; stable. - Continue duloxetine # Hyperglycemia; present admission; ongoing - No history of diabetes - Low correctional ISS - HgA1C 7 # History of coronary artery disease. Present on admission. Stable. - Continue ASA # History of hypertension. Stable - Continue with home meds # Chronic obstructive sleep apnea. Stable - Continue with home CPAP # History of aortic valve replacement - Continue warfarin, goal INR> 2.5 - Followup daily INR # History of COPD. Stable. - Continue home meds Dispo: 2-3 days VTE Prophylaxis: Theraputic Anticoag with Warfarin Resuscitation Status: DNR/DNI:Do Not Resuscitate/Intubate Theodore Canada Apr 28, 2017 17:46
[2017-04-28] MEDS ORDERED: Piperacillin-Tazo 3.375 Gm Inj 3.375 GM in Dextrose 5% Minibag Plus 50 ML IV ONE (18:20)
[2017-04-28 19:37] VITALS: BP 113/62; PULSE 84; RESP 16; O2SAT 99
[2017-04-29] MEDS ORDERED: Piperacillin-Tazo 3.375 Gm Inj 3.375 GM in Dextrose 5% Minibag Plus 50 ML IV SCH (00:30)
[2017-04-29 03:40] VITALS: BP 124/70; PULSE 75; RESP 16; O2SAT 97
--- NOTE | 2017-04-29 03:55 | NUR ---
Activity Pt has denied pain this shift, just overall "feels crummy." Mepilex placed on coccyx for redness that blanches, pt is able to turn in bed and was educated on the importance of this. Dixon patent and draining clear urine. Brittaney alarm in place. Pt has been using the call light appropriately.
[2017-04-29 06:57] LABS: INR 3.31 ratio
[2017-04-29 06:58] LABS: BASOPHILS % (AUTO) 0.2 % (0-3); EOSINOPHILS % (AUTO) 5.1 % (0-5); MONOCYTES % (AUTO) 13.3 % (4-12); Mean Corpuscular Hemoglobin 30.4 pg (27.0-35.0); NEUTROPHILS % (AUTO) 55.8 % (40-74); Platelet Count 157 bil/L (150-400)
[2017-04-29 07:14] LABS: Magnesium 1.9 mg/dL (1.6-2.6)
[2017-04-29] MEDS: Insulin LISPRO 300 Unit/3 mL Inj SUBQ SCH ×4 (08:00→22:00)
[2017-04-29] MEDS: MeTOProlol XL 25 mg ER24 Tablet PO SCH ×2 (08:00→17:48)
[2017-04-29] MEDS ORDERED: ALPRAZolam 0.25 mg Tablet PO PRN (08:05)
[2017-04-29] MEDS: DULoxetine 30 mg DR Capsule PO SCH (09:30)
[2017-04-29] MEDS: ALPRAZolam 0.25 mg Tablet PO SCH ×2 (09:30→20:18)
[2017-04-29] MEDS: Isosorbide Mononitrate 60 mg ER24 Tablet PO SCH (09:30)
--- NOTE | 2017-04-29 10:56 | PCM.PHAPRO ---
Progress Warfarin dosing WARFARIN DOSING PER PHARMACY [facility] DFF Date Apr 28-Apr 29-Apr INR 4.78 5.20 3.31 INR change 0.42 -1.89 Warf Dose HOLD HOLD HOLD A/P -Supratheraputic INR noted since admit but downtrending. -Will continue to hold warfarin this evening Alexis Tena, PharmD Alexis Tena Apr 29, 2017 10:56
[2017-04-29 12:22] VITALS: BP 153/73; PULSE 114; RESP 16; O2SAT 99
--- NOTE | 2017-04-29 12:28 | NUR ---
Social Work- Initial Assessment/ Multidisciplinary Rounds Data: See Initial Assessment and Advance Directive Intervention for additional information. Pt discussed in rounds. Pt is anticipated to discharge in 2 days. PT has seen pt yesterday and is recommending SNF. Pt may progress during this hospitalization as he is typically independent at baseline with a cane. Pt is a 86 year old male admitted 04/27/17 for UTI, Weakness, ARF per H&P. Pt's insurance is [facility] and [employer]. Pt's PCP is BRIA Velasquez. Pt's readmit risk score is 7. Pt's capacity for self-care assessed. Pt has confusion at baseline and resides at [facility]. T/C to [facility] regarding discharge plan and pt's baseline mobility. Per [facility], pt is typically independent with ADLs and self-care, including self caths occasionally. Clinicals faxed to pt's RN Kimberly at [facility]. Pt does not drive. Pt has history with RN and PT services, company unknown. Pt has history of skilled rehab at [facility] in [place]. Pt's DPOA and designated contact people for discharge planning are Comfort Adames, and tadeo Gupta, . Pt has POLST on file, SW requested Comfort bring in copy of DPOA paperwork. SW discussed SNF recommendation with pt's DPOA but explained that MD has not ordered SNF yet. Pt may progress in his mobility during his clinical course. DPOA is agreeable and states that if pt did require a SNF she would want him to go to [facility] in [place]. Pt's DPOA requested that [employer] not provide discharge planning checklist to patient has he has a history of anxiety and it might worry him to hear about discharge planning. SW agreeable. Sw provided contact information to DPOA. DPOA is hopeful that pt will return to [facility] rather than SNF. SW will continue to follow. Assessment: Pt who resides at [facility] Plan: PT recommending SNF at this time but it is unclear if pt would benefit from therapies at SNF due to dementia. Pt may progress. Pt's DPOA is hopeful that pt will improve to return to [facility]. SW will continue to follow for discharge planning needs. HORTENSIA Joseph Addendum: 04/29/17 at 1238 by REID AGUSTIN Amended: Links added.
--- NOTE | 2017-04-29 13:38 | DRSVH ---
[facility] [address] [place] [address] Echocardiogram Report Name: ASIM GRIFFITH Sarmad e: 04/29/2017 Height: 66 in Hospital Exam Location: [facility] Weight: 133 lb Gender: Male BSA: 1.7 m2 : 1930 Age: 86 yrs BP: 124/70 m mHg Reason For Study: SOB, weakness Ordering Physician: HOSPITALIST [facility] Performed By: Crystal Beltran Referring Physician: BRIA Haq Interpretation Summary Red team. The left ventricle is mildly dilated. The ejection fraction is estimated to be 20-25%. The mitral valve leaflets are moderately calcified. Mitral valve has been repaired by history with a clip There is moderate mitral regurgitation. Compared to the prior echo study, there has been a decrease in the severity of mitral regurgitation. A small 3mm echodensity is noted on the LA aspect of the AMVL, this was not seen on last exam and raises the possibility of endocarditis. There is a bioprosthetic aortic valve. The peak aortic velocity is 2.5 m/sec. Perivalvular AI not well seen There is mild tricuspid regurgitation. The right ventricular systolic pressure is estimated at 35 mmHg assuming a right atrial pressure of 3 mm Hg. Procedure: A two-dimensional transthoracic echocardiogram with color flow and Doppler was performed in limited views only. The study quality was technically adequate. Comparison is made with the echocardiogram of 02/07/2017. Left Ventricle: The left ventricle is mildly dilated. Left ventricular wall thickness is normal. The ejection fraction is estimated to be 20-25%. There has been no significant change since the previous exam. Diastolic function could not be accurately assessed due to confounding valvular disease. Right Ventricle: There is a pacemaker lead in the right ventricle. The right ventricle is normal in size and function. Mitral Valve: There is severe mitral annular calcification. The mitral valve leaflets are moderately calcified. Mitral valve has been repaired by history with a clip. A small 3mm echodensity is noted on the LA aspect of the AMVL, this was not seen on last exam and raises the possibility of endocarditis. There is moderate mitral regurgitation. The mitral regurgitant jet is eccentrically directed. Compared to the prior echo study, there has been a decrease in the severity of mitral regurgitation. Aortic Valve: There is a bioprosthetic aortic valve. The prosthetic aortic valve is well-seated. The peak aortic velocity is 2.5 m/sec. The peak aortic velocity on the previous exam was 1.7 m/sec. The aortic valve mean gradient is 12 mmHg. There is trace aortic regurgitation. Perivalvular AI not well seen. Tricuspid Valve: The tricuspid valve leaflets are thin and pliable. There is mild tricuspid regurgitation. The right ventricular systolic pressure is estimated at 35 mmHg assuming a right atrial pressure of 3 mm Hg. Pulmonic Valve: The pulmonic valve is normal in structure and function. There is a trace or physiologic amount of pulmonic regurgitation. Great Vessels: The IVC is of normal diameter and collapses greater than 50% with a sniff. This suggests a low right atrial pressure of 3 mm Hg. Pericardium/ Pleura There is no pericardial effusion. MMode/2D Measurements & Calculations LVIDd: 6.3 cm LVOT diam EDV(MOD-sp2) LV gorman. diameter/BSA LVIDs: 5.5 cm : 1.9 cm (cm/m^2): 3.8 FS: 13.1 % ESV(MOD-sp2) EPSS: 2.3 cm IVSd: 0.66 cm EF(MOD-sp2) LVPWd: 0.91 cm LV sys. diameter/BSA RVD1 (basal) TAPSE: 2.0 cm (cm/m^2): 3.3 Doppler Measurements & Calculations Ao V2 max MV E max yonatan MV E/A: 1.0 TR max yonatan : 248.2 cm/sec : 122.3 cm/sec : 281.4 cm/sec Ao max PG MV A max yonatan TR max PG : 24.6 mmHg : 118.2 cm/sec : 31.9 mmHg Ao mean PG MV P1/2t: 87.3 msec PA V2 max : 12.0 mmHg : 60.7 cm/sec LVOT Max Yonatan MVA(VTI): 1.1 cm2 PA mean PG : 100.3 cm/sec : 0.81 mmHg PA Accel Time REINA(I,D): 0.94 cm : 0.08 sec sev ratio MV V2 mean MV P1/2t max yonatan Ao V2 mean LV V1 max PG : 80.6 cm/sec : 163.2 cm/sec MV mean PG MVA(P1/2t): 2.5 cm2 Ao V2 VTI LV V1 VTI : 13.0 cm MV V2 VTI: 32.0 cm REINA(V,D): 1.1 cm2 MV dec time : 0.31 sec PA V2 mean REINA indexed to BSA : 41.8 cm/sec (cm^2/m^2): 0.56 Electronically signed by: Yon Kelly on Reading Physician:04/29/2017 01:37 PM
--- NOTE | 2017-04-29 17:26 | PCM.PNMED ---
Subjective Date of Service Apr 29, 2017 Subjective Denies any other new issues/complaints. Exam Vital Signs Vital Sign - Last Date Time Temp Pulse Resp B/P Pulse Ox O2 Delivery O2 Flow Rate FiO2 04/29/17 15:41 Room Air 04/29/17 12:22 36.4 114 16 153/73 99 Intake and Output 04/28/17 04/28/17 04/29/17 Cumulative From/Thru 15:00 23:00 07:00 04/27/17 18:49 - 04/29/17 06:14 Intake Total 1100 ml 575 ml 2238 ml Output Total 3200 ml 650 ml 7225 ml Balance -2100 ml -75 ml -4987 ml Intake Oral 1100 ml 400 ml 1500 ml IV Total 175 ml 738 ml Output Urine Total 3200 ml 650 ml 7225 ml # Voids 2 # Bowel Movements 0 1 Exam General: Alert, Cooperative, No Acute Distress Head: Normal Eyes: Scleral Anicteric Nose: Mucous Membr Moist/[place] Mouth: Mucous Membr Moist/[place] Neck: Supple Chest & Lungs: Chest Wall Normal, Clear to auscultation bilat Cardiovascular: Regular Rate/Rhythm Pulses: NL carotid, radial, femoral, DP, PT Abdomen: Non-tender, Non-distended, Normoactive bowel tones, Soft Extremities: No cyanosis/clubbing/edema bilat Neurological: Grossly Neurologically Intact, Normal Speech IVs and Medications Medications Reviewed: Medications were reviewed in detail Lab and Diagnostics Result Diagram: 04/29/17 0600 04/29/17 0600 X-Rays, CTs and MRIs Chest x-ray IMPRESSION: Chronic cardiomegaly, mild in overall severity. Anterior calcified granuloma right lower lung. Postsurgical changes as discussed. A slight degree of pulmonary edema may be superimposed. Dictated by: Marcello Gordon M.D. on 04/27/2017 at 14:21 12-lead ECG Paced rhythm at 70 with questionable left bundle branch block; QTC 520 Assessment & Plan 86-year-old male, with medical history significant cardiac disease presents due to increasing weakness, anorexia, fatigue, and low exercise tolerance. # Suspected acute systolic congestive heart failure. Present on admission; ongoing but improving - Patient's worsening weakness and fatigue, as well as elevations in LFTs and creatinine demonstrate vascular congestion, possibly cardiorenal syndrome - Daily weights, standing - Continue with home diuretics - Continue metoprolol and other home cardiac meds - Limited echo showing EF 20-25% # Acute Enterococ Faecalis - (Group D) urinary tract infection (UTI). Present on admission - Changed Abx to oral Cipro (dose per pharmacy) # Acute on chronic kidney disease; present on admission. Improved - Appears baseline is between 1.25-1.5 - Avoid NSAIDs and other nephrotoxins - Recheck creatinine in a.m. # Chronic depression; present admission; stable. - Continue duloxetine # Hyperglycemia; present admission; ongoing - No history of diabetes - Low correctional ISS - HgA1C 7 # History of coronary artery disease. Present on admission. Stable. - Continue ASA # History of hypertension. Stable - Continue with home meds # Chronic obstructive sleep apnea. Stable - Continue with home CPAP # History of aortic valve replacement - Continue warfarin, goal INR 2.5-3.5 - Followup daily INR # History of COPD. Stable. - Continue home meds Dispo: 1-2 days VTE Prophylaxis: Theraputic Anticoag with Warfarin Resuscitation Status: DNR/DNI:Do Not Resuscitate/Intubate Theodore Canada Apr 29, 2017 17:26
[2017-04-29 20:44] VITALS: BP 118/71; PULSE 76; RESP 16; O2SAT 99
[2017-04-30 04:16] VITALS: BP 109/65; PULSE 61; RESP 16; O2SAT 96
--- NOTE | 2017-04-30 04:46 | NUR ---
Activity Pt has been OOB several times this shift to stand at bedside for urinal and to BR. Pt is SBA and tolerates fair, no dizziness or SOB. FC out yesterday 04/29/17 @1700 -Pt voiding 350+mls this shift. No c/o pain this shift.
[2017-04-30 06:49] LABS: INR 2.44 ratio
[2017-04-30] MEDS: Isosorbide Mononitrate 60 mg ER24 Tablet PO SCH (07:37)
[2017-04-30] MEDS: Insulin LISPRO 300 Unit/3 mL Inj SUBQ SCH ×2 (08:00→12:00)
[2017-04-30] MEDS: DULoxetine 30 mg DR Capsule PO SCH (08:43)
[2017-04-30] MEDS: ALPRAZolam 0.25 mg Tablet PO SCH (08:44)
[2017-04-30] MEDS: MeTOProlol XL 25 mg ER24 Tablet PO SCH (08:44)
--- NOTE | 2017-04-30 10:31 | NUR ---
Gave access and called Brenda with [facility]. Let her know patient is likely to discharge today. Per HORTENSIA and order Addendum: 04/30/17 at 1033 by BIRD AGUILAR Faxed updated clinicals to Noelle
[2017-04-30] MEDS ORDERED: CIPR-232 PO (10:54)
--- NOTE | 2017-04-30 11:01 | PCM.DIMED ---
Discharge Instructions Date of Service Apr 30, 2017 Dates of Hospitalization Apr 27, 2017 at 18:19 Discharge Diagnosis Discharge Diagnosis # Suspected acute systolic congestive heart failure. Present on admission; ongoing but improving - Limited echocardiogram showing ejection fraction (EF) 20-25% # Acute Enterococ Faecalis - (Group D) urinary tract infection (UTI). Present on admission # Acute on chronic kidney disease; present on admission. Resolved. # Chronic depression; present admission; stable. # Hyperglycemia; present admission; improved. - No history of diabetes - HgA1C 7 # History of coronary artery disease. Present on admission. Stable. # History of hypertension. Stable # Chronic obstructive sleep apnea. Stable # History of aortic valve replacement - Continue Warfarin anticoagulation, goal INR 2.5-3.5 # History of COPD. Stable. Diet Discharge Diet: Low fat, Low Sodium, Heart Healthy Activity Discharge Activity: Home Health Phyical Therapy Call your provider Call your provider for: Fever or Chills, Shortness of breath, Bleeding, Chest pain, Excessive diarrhea Patient Instructions Patient Instructions Seek immediate medical attention if any new or worsening signs or symptoms occur. Home health nursing to recheck INR in 1-2 days and adjust Coumadin dose (goal INR 2.5-3.5) Follow-up plan 1. Followup with primary care provider (Dr. Richardson) on Thursday05/04/17 at 9:30 AM Follow-up Provider: Cassie Richardson MD Follow-up with PCP in: Other (Thursday05/04/17 at 9:30 AM) Theodore Canada Apr 30, 2017 11:01
--- NOTE | 2017-04-30 12:16 | NUR ---
Social Work- Discharge/ Multidisciplinary Rounds Data: EMR reviewed. Pt is on day 3 of hospitalization for UTI, Weakness, ARF. Pt discussed in rounds. Pt ready for discharge today. MD feels that HHRN PT is medically necessary for INR checks and continued strengthening. PT recommending HHPT for 2-3 weeks and recommending that pt use a walker rather than his cane. RN PT order received. T/C to pt's DEVIN Moyer regarding discharge plan and HH services. HH CHOICE LIST PROVIDED by phone. Comfort states that pt has had [facility] in the past and that she would want to use them again. Comfort confirms that pt has a walker in his room at [facility] and that she will help reinforce to pt that he should use it. DENISE updated pt at bedside regarding discharge plan and HH. Pt agreeable to [facility] services RN PT. Pt is agreeable to using his walker at [facility]. Pt is excited to return home. FLAME HARDENER made referral to [facility] for RN PT services. F2F completed, faxed. Original to be provided to Brenda at [facility]. T/C to SHUKRI Magana at [facility], regarding pt. Izzy has reviewed clinicals and confirmed that pt does not need a bedside assessment prior to returning. Izzy is agreeable to [facility] services. Izzy is aware that pt should use his walker to ambulate. DENISE spoke with Manda, admin at [facility], regarding transportation from hospital. Manda states that [facility] will pick pt up in the activities van at 1330. RN, Comfort, and pt updated and agreeable to plan. Pt to discharge to [facility] with [facility] RN PT services, [facility] to transport at 1330 via activities van. Assessment: Pt for whom HHRN PT is medically necessary Plan: Pt to discharge to [facility] with [facility] RN PT services, [facility] to transport at 1330 via activities van. RN, HO, pt/family, and [facility] and [facility] all updated and agreeable to plan. No additional discharge needs identified. Carly Cast, TRANSFER CAR OPERATOR DRIER
[2017-04-30 12:41] VITALS: BP 106/63; PULSE 56; RESP 16; O2SAT 99
--- NOTE | 2017-04-30 13:31 | PCM.PHAPRO ---
Progress Warfarin dosing DAILY WARFARIN DOSING Date Apr 28-Apr 29-Apr 30-Apr INR 4.78 5.20 3.31 2.44 INR change 0.42 -1.89 -0.87 Warf Dose HOLD HOLD HOLD 3MG Naina Ng Pharm.D Apr 30, 2017 13:31
--- NOTE | 2017-04-30 13:35 | NUR ---
Discharge Pt. received discharge orders; verbalized understanding. New prescription given; pt. stated that information will be given to primary nurse at [facility]. Saline lock discontinued, intact. Care notes given on CHF and UTI. Staff member Dottie from [facility] picked up pt. via W/C and transported to facility. Approx. discharge time 1345.
--- NOTE | 2017-04-30 17:34 | PCM.DC.MED ---
Discharge Summary Date of Service Apr 30, 2017 Dates of Hospitalization Date of Hospital Admission Apr 27, 2017 at 18:19 Date of Discharge: Apr 30, 2017 Providers: Admitting Physician: Flor Casey DO Primary Care Physician: Allie Haq Attending Physician: Theodore Mercado Diagnosis at Time of Discharge Diagnosis at Time of Discharge # Suspected acute systolic congestive heart failure. Present on admission; ongoing but improving - Limited echocardiogram showing ejection fraction (EF) 20-25% # Acute Enterococ Faecalis - (Group D) urinary tract infection (UTI). Present on admission # Acute on chronic kidney disease; present on admission. Resolved. # Chronic depression; present admission; stable. # Hyperglycemia; present admission; improved. - No history of diabetes - HgA1C 7 # History of coronary artery disease. Present on admission. Stable. # History of hypertension. Stable # Chronic obstructive sleep apnea. Stable # History of aortic valve replacement - Continue Warfarin anticoagulation, goal INR 2.5-3.5 # History of COPD. Stable. Procedures XRay, CTs & MRIs Chest x-ray IMPRESSION: Chronic cardiomegaly, mild in overall severity. Anterior calcified granuloma right lower lung. Postsurgical changes as discussed. A slight degree of pulmonary edema may be superimposed. Dictated by: Marcello Gordon M.D. on 04/27/2017 at 14:21 Cardiac Echo Impression Date of Service: 04/29/17 1742 Echocardiogram Report Interpretation Summary Red team. The left ventricle is mildly dilated. The ejection fraction is estimated to be 20-25%. The mitral valve leaflets are moderately calcified. Mitral valve has been repaired by history with a clip There is moderate mitral regurgitation. Compared to the prior echo study, there has been a decrease in the severity of mitral regurgitation. A small 3mm echodensity is noted on the LA aspect of the AMVL, this was not seen on last exam and raises the possibility of endocarditis. There is a bioprosthetic aortic valve. The peak aortic velocity is 2.5 m/sec. Perivalvular AI not well seen There is mild tricuspid regurgitation. The right ventricular systolic pressure is estimated at 35 mmHg assuming a right atrial pressure of 3 mm Hg. Electronically signed by: Yon Kelly on Reading Physician:04/29/2017 01:37 PM Brief History As noted in H&P by Dr. Lucero: 86-year-old male with a history of CAD S/P CABG, COPD, CHF, and hypertension, as well as many complicating comorbidities, who presented to emergency department due to increasing weakness and fatigue over the last week. Patient resides at [facility] and states that recently he has had no appetite with decreased oral intake, but denies ongoing fever, chills, dysuria, diarrhea, vomiting/nausea, dizziness, lightheadedness. Patient's a year and a half ago and since this time the patient seems to be steady decline. Posterior fractures hip and underwent rehabilitation at [facility] for an extended period of time, and is unclear if he ever returned home before being transferred to [facility], where he has been for 6 months. Patient denies any chest pain shortness of breath, but does attest to decreased exercise tolerance. Patient's last echo was in February of this year revealing a ejection fraction 20-25%. At that time he was admitted due to CHF exacerbation. Emergency department blood work showed a elevated BNP of 30,000, with acute kidney injury and elevation in transaminases. Has no leukocytosis, although there is very mild thrombocytopenia Hospital Course # Suspected acute systolic congestive heart failure. Present on admission; clinically appears resolved - Patient's worsening weakness and fatigue, as well as elevations in LFTs and creatinine demonstrate vascular congestion, possibly cardiorenal syndrome - Initially treated with IV Lasix then, - Continued with home diuretics - Continued metoprolol and other home cardiac meds - Limited echo showing EF 20-25% # Acute Enterococ Faecalis - (Group D) urinary tract infection (UTI). Present on admission - Changed Abx to oral Cipro (dose per pharmacy) and will d/c home with 10 more days # Acute on chronic kidney disease; present on admission. Resolved - Appears baseline is between 1.25-1.5 # Chronic depression; present admission; stable. - Continued duloxetine # Hyperglycemia; present admission - No history of diabetes - HgA1C 7 # History of coronary artery disease. Present on admission. Stable. - Continued ASA # History of hypertension. Stable - Continued with home meds # Chronic obstructive sleep apnea. Stable - Continued with home CPAP # History of aortic valve replacement - Continued warfarin, goal INR 2.5-3.5 # History of COPD. Stable. - Continued home meds by day of d/c reports improved strength and denies any CP or SOB. Exam Vital Signs (Last) Date Time Temp Pulse Resp B/P Pulse Ox O2 Delivery O2 Flow Rate FiO2 04/30/17 12:41 36.3 56 16 106/63 99 Room Air Exam General: Alert, Cooperative, No Acute Distress Head: Normal Eyes: Scleral Anicteric Nose: Mucous Membr Moist/Gattman Mouth: Mucous Membr Moist/Gattman Neck: Supple Chest & Lungs: Chest Wall Normal, Clear to auscultation bilat Cardiovascular: Regular Rate/Rhythm Abdomen: Non-tender, Non-distended, Normoactive bowel tones, Soft Extremities: No cyanosis/clubbing/edema bilat Neurological: Grossly Neurologically Intact, Normal Speech Test 04/27/17 12:00 04/27/17 13:50 04/28/17 05:18 04/29/17 06:00 Hemoglobin A1c 7.0% (4.8-5.6) Lactic Acid Level 1.7mmol/L (0.4-2.0) Total Bilirubin 0.7mg/dL (0.0-1.2) Aspartate Amino Transf (AST/SGOT) 70U/L (0-50) Alanine Aminotransferase (ALT/SGPT) 96U/L (0-44) Alkaline Phosphatase 102U/L (25-160) Total Protein 6.8g/dL (6.4-8.4) Albumin 3.6g/dL (3.4-5.0) Urine Color Yellow (YELLOW) Urine Appearance Turbid (CLEAR,HAZY) Urine pH 5.5 (5.0-8.0) Urine Specific [place] 1.015 (1.003-1.035) Urine Protein 30mg/dL (NEG,TRACE) Urine Glucose (UA) Negativemg/dL (NEGATIVE) Urine Ketones Negativemg/dL (NEGATIVE) Urine Occult Blood Moderate (NEGATIVE) Urine Nitrite Negative (NEGATIVE) Urine Bilirubin Negative (NEGATIVE) Urine Urobilinogen Normalmg/dL (NORMAL) Urine Leukocyte Esterase Large (NEGATIVE) Urine RBC 0-2/hpf (0-2) Urine WBC >50/hpf (0-5) Urine Epithelial Cells Occasional/hpf (NONE-MOD) Urine Crystals None seen (NONE SEEN) Urine Bacteria Moderate/hpf (NONE-FEW) Urine Hyaline Casts None/lpf (NONE) Urine Granular Casts None seen (NONE SEEN) Urine Waxy Casts None seen (NONE SEEN) Urine Red Blood Cell Casts None seen (NONE SEEN) Urine White Blood Cell Casts None seen (NONE SEEN) Urine Mucus None seen (None Seen) Urine Trichomonas None seen (NONE SEEN) Urine Yeast None (NONE SEEN) Urinalysis Comment None Urine Culture Reflexed Indicated Triglycerides Level 90mg/dL (0-149) Cholesterol Level 132mg/dL (100-199) LDL Cholesterol, Calculated 77.000mg/dL (0-99) VLDL Cholesterol 18.000mg/dL HDL Cholesterol 37mg/dL (>39) Cholesterol/HDL Ratio 3.57 (0.0-4.4) White Blood Count 8.6th/mm3 (3.8-10.1) Red Blood Count 4.80mil/mm3 (4.40-5.80) Hemoglobin 14.6g/dL (13.8-17.2) Hematocrit 43.7% (41.0-50.0) Mean Corpuscular Volume 91.0fL (81-100) Mean Corpuscular Hemoglobin 30.4pg (27.0-35.0) Mean Corpuscular Hemoglobin Concent 33.4% (32.0-37.0) Red Cell Distribution Width 15.5% (12.3-15.4) Platelet Count 157bil/L (150-400) Neutrophils (%) (Auto) 55.8% (40-74) Lymphocytes (%) (Auto) 25.2% (14-46) Monocytes (%) (Auto) 13.3% (4-12) Eosinophils (%) (Auto) 5.1% (0-5) Basophils (%) (Auto) 0.2% (0-3) Magnesium Level 1.9mg/dL (1.6-2.6) Test 04/30/17 05:20 Prothrombin Time 26.6sec (8.1-12.5) Prothromb Time International Ratio 2.44ratio Sodium Level 138mEq/L (134-144) Potassium Level 3.8mEq/L (3.5-5.2) Chloride Level 98mEq/L (97-108) Carbon Dioxide Level 25mmol/L (18-29) Blood Urea Nitrogen 49mg/dL (8-27) Creatinine 1.20mg/dL (0.76-1.27) Estimat Glomerular Filtration Rate 61mL/min (>59) Glucose Level 108mg/dL (60-99) Calcium Level 8.6mg/dL (8.5-10.1) Pro-B-Type Natriuretic Peptide 00158gz/mL (0-486) Discharge Medications Discharge Medications Acetaminophen (Acetaminophen) 325 Mg Tablet 650 MG PO BIDWM (Reported) Alprazolam (Alprazolam) 0.25 Mg Tablet 0.25 MG PO BID (Reported) 1600 & 2000 Atorvastatin (Lipitor) 20 Mg Tablet 20 MG PO HS (Reported) Cholecalciferol (Vitamin D3) (Vitamin D3) 2,000 Unit Capsule 2,000 UNIT PO QAM ( Reported) Ciprofloxacin (Cipro) 250 Mg Tablet 250 MG PO BID Prescribed by: THEODORE MERCADO MD Duloxetine (Cymbalta) 30 Mg Capsule.dr 30 MG PO QAM (Reported) Furosemide (Lasix) 20 Mg Tablet 40 MG PO EVERY OTHER DAY (Reported) LASIX 60 MG ALTERNATING WITH LASIX 40 MG Furosemide (Furosemide) 40 Mg Tablet 60 MG PO EVERY OTHER DAY (Reported) LASIX 60 MG ALTERNATING WITH LASIX 40 MG Isosorbide MN ER (Isosorbide MN ER) 60 Mg Tab.er.24h 60 MG PO 0730 Prescribed by: NICOLAS BOYD DO Loratadine (Claritin) 10 Mg Capsule 10 MG PO QAM (Reported) Melatonin (Melatonin) 3 Mg Tablet 3 MG PO HS (Reported) Metoprolol Succinate ER (Metoprolol Succinate ER) 25 Mg Tab.er.24h 25 MG PO BIDWM Prescribed by: NICOLAS BOYD DO Multivitamin (Multivitamins) 1 Each Capsule 1 EACH PO QAM (Reported) Polyethylene Glycol 3350 (Polyethylene Glycol 3350) 17 Gm Powd.pack 17 GM PO QAM (Reported) HOLD FOR LOOSE STOOLS Potassium Chloride ER (Klor-Con M10) 10 Meq Tablet 10 MEQ PO DAILYWM (Reported) Sennosides (Senna) 8.6 Mg Tablet 8.6 MG PO BIDWM (Reported) Warfarin Sodium (Warfarin Sodium) 3 Mg Tablet 1.5 MG PO TUES/THURS (Reported) WARFARIN 1.5 MG TUES/THURS AND 3 MG ALL OTHER DAYS Warfarin Sodium (Warfarin Sodium) 3 Mg Tablet 3 MG PO DAILY EXCEPT TUE/BEBETO ( Reported) WARFARIN 1.5 MG TUES/THURS AND 3 MG ALL OTHER DAYS As needed Acetaminophen (Acetaminophen) 325 Mg Tablet 650 MG PO Q4H PRN PRN For Fever ( Reported) Alprazolam (Alprazolam) 0.25 Mg Tablet 0.25 MG PO DAILY PRN PRN For Anxiety ( Reported) Bisacodyl (Dulcolax Rectal) 10 Mg Supp.rect 10 MG RC EVERY 3 DAYS PRN PRN For Constipation (Reported) FOR CONSTIPATION NOT RELIEVED BY MILK OF MAGNESIA Bismuth Subsalicylate (Digestive Relief) 262 Mg/15 Ml Oral.susp 30 ML PO BID PRN PRN For Diarrhea or Loose Stool (Reported) Docusate Sodium (Colace) 100 Mg Capsule 100 MG PO BID PRN PRN For Constipation ( Reported) Furosemide (Furosemide) 80 Mg Tab 40 MG PO DAILY PRN PRN EDEMA OR WEIGHT > 154 LBS (Reported) Ibuprofen (Ibuprofen) 200 Mg Capsule 400 MG PO DAILYWM PRN PRN For Pain ( Reported) Mag Hydrox/Al Hydrox/Simeth (Adv Antacid-[place] Liquid) 400 Mg-400 Mg-40 Mg/5 Ml Oral.susp 30 ML PO QID PRN PRN For Dyspepsia or Heartburn (Reported) Magnesium Hydroxide (Milk of Magnesia) 400 Mg/5 Ml Oral.susp 30 ML PO Q3DAYS PRN PRN For Constipation (Reported) NTE 2 DOSES/24 HRS Na Phos,M-B/Na Phos,Di-Ba (Fleet Enema) 133 Ml Enema 133 ML RC Q3DAYS PRN PRN For Constipation (Reported) Nitroglycerin SL (Nitroglycerin SL) 0.4 Mg Tab.subl 0.4 MG SL PRN PRN PRN For Chest Pain (Reported) Ondansetron (Ondansetron) 4 Mg Tablet 4 MG PO Q6HR PRN PRN For Nausea (Reported ) Followup Plan Disposition: Home with home health Follow-up plan 1. Followup with primary care provider (Dr. Richardson) on Thursday05/04/17 at 9:30 AM Discharge Diet: Low fat, Low Sodium, Heart Healthy Discharge Activity: Home Health Phyical Therapy Patient Instructions Seek immediate medical attention if any new or worsening signs or symptoms occur. Home health nursing to recheck INR in 1-2 days and adjust Coumadin dose (goal INR 2.5-3.5) Follow-up Provider: Cassie Richardson MD Follow-up with PCP in: Other (Thursday05/04/17 at 9:30 AM) Time spent 35 min copies to: Cassie Richardson MD, Masoud Apr 30, 2017 17:34
== END 2017-04-30 13:46 | disposition home health service (06) | DRG 291 ==
LOC: SED 11:30 → OSC 18:19
PROVIDERS: ADMIT Internal Medicine; ATTEND Internal Medicine
DX: I13.0 Hypertensive heart and chronic kidney disease with heart failure and stage 1 through stage 4 chronic kidney disease, or unspecified chronic kidney disease (principal); I50.23 Acute on chronic systolic (congestive) heart failure; N17.9 Acute kidney failure, unspecified; N39.0 Urinary tract infection, site not specified; N18.9 Chronic kidney disease, unspecified; I25.10 Atherosclerotic heart disease of native coronary artery without angina pectoris; J44.9 Chronic obstructive pulmonary disease, unspecified; I48.91 Unspecified atrial fibrillation; Z66 Do not resuscitate; G47.33 Obstructive sleep apnea (adult) (pediatric); N40.0 Benign prostatic hyperplasia without lower urinary tract symptoms; M48.00 Spinal stenosis, site unspecified; E86.0 Dehydration; I34.0 Nonrheumatic mitral (valve) insufficiency; F32.9 Major depressive disorder, single episode, unspecified; B95.2 Enterococcus as the cause of diseases classified elsewhere; Z95.2 Presence of prosthetic heart valve; Z95.0 Presence of cardiac pacemaker; Z79.01 Long term (current) use of anticoagulants